=== PATIENT | female | born 1990 | race Caucasian/White ===

== ENCOUNTER 2016-06-09 21:01 | Emergency (ER) | payer OTHER ==
[~2016-06-09] VITALS: Ht 157.5 cm; Wt 82.5 kg
[~2016-06-09 21:01] MED LIST: MEDR150I INJ; TRAZ1TAB8 PO
[2016-06-09 21:03] VITALS: TEMP 37.5; Ht 157.5 cm; Wt 82.5 kg
[2016-06-09] MEDS ORDERED: KETOROLAC TROMETHAMINE 60 MG/2 ML VIAL IM STA (21:38)
[2016-06-09] MEDS ORDERED: PROMETHAZINE HCL INJ 25 MG/ML 1 ML VIAL IM STA (21:38)
--- NOTE | 2016-06-09 21:58 | EMERGENCY ROOM VISIT NOTE ---
History First contact with patient: 21:07 Chief Complaint: HEADACHE Stated Complaint: MIGRAINE,BACK PAIN History of Present Illness The patient is a 26 year old female who presents to the Emergency Room with complaints of back spasms and a migraine headache. The patient reports that she is having low back spasms which began 2 hours ago. The patient also reports she has a migraine which started 2 hours ago. She has associated sensitivity to light and sound as well as nausea. She has not vomited. She rates her discomfort an 8/10. The patient has a history of both back pain and migraine headaches. She reports both of these are exactly like her chronic symptoms. He sees her primary care provider for her headaches. She is prescribed Maxalt, but did not take any tonight. She denies any recent illness , fevers/chills, neck pain/stiffness, blurred vision, slurred speech, numbness or weakness. Review of Systems A complete 10-point Review of Systems was discussed with the patient, with pertinent positives and negatives listed in the History of Present Illness. All remaining Review of Systems questions can be considered negative unless otherwise specified. Past Medical/Surgical History Medical Problems: (1) Migraine (2) Tonsillectomy (3) Vaginal delivery Family History Cancer Diabetes mellitus Hypertension Social History Smoking Status: Current Every Day Smoker Alcohol Use: none Drug Use: none Marital Status: single, in relationship Housing Status: lives with family Occupation Status: employed Current/Historical Medications Scheduled Medroxyprogesterone Acetate (C (Depo-Provera Contraceptiv), 1 EA INJ [id number] Pantoprazole (Protonix), 40 MG PO DAILY Quetiapine Fumarate (Seroquel), 25 MG PO HS Scheduled PRN Albuterol (Ventolin), 2 PUFFS INH QID PRN for SOB/Wheezing Rizatriptan Benzoate (Maxalt), 10 MG PO DIRECTED PRN for Headache Allergies Coded Allergies: Azithromycin (Unverified Allergy, Unknown, HIVES, 05/09/16) Macrolides (Verified Allergy, Unknown, UNKNOWN, 05/09/16) Sulfa Antibiotics (Verified Allergy, Unknown, UNKNOWN, 05/09/16) Sulfamethoxazole w/Trimethoprim (Unverified Allergy, Unknown, UKN, 05/09/16 ) Uncoded Allergies: KETALIDES (Allergy, Unknown, UNKNOWN, 08/27/13) Physical Exam Vital Signs Date Time Temp Pulse Resp B/P Pulse Ox O2 Delivery O2 Flow Rate FiO2 06/09/16 22:19 107 18 121/88 98 06/09/16 21:03 37.5 106 20 119/89 100 Room Air Physical Exam VITALS: Vitals are noted on the nurse's note and reviewed by myself. Vital signs stable. GENERAL: This is a 26-year-old female, in no acute distress, nondiaphoretic, well-developed well-nourished. SKIN: The skin was without rashes, erythema, edema, or bruising. There is no tenting of the skin. Capillary reflex less than 2 seconds. HEAD: Normocephalic atraumatic. EARS: External auditory canals clear, tympanic membranes pearly horton without erythema or effusion bilaterally. EYES: Pupils equal round and reactive to light and accommodation. Conjunctivae without injection, sclerae without icterus. Extraocular movements intact. NOSE: Patent, turbinates without inflammation or discharge. No sinus tenderness. MOUTH: Mucous membranes moist. Tonsils are not enlarged. Pharynx without erythema or exudate. NECK: Supple without nuchal rigidity. No lymphadenopathy. HEART: Regular rate and rhythm without murmurs gallops or rubs. LUNGS: Clear to auscultation bilaterally without wheezes, rales or rhonchi. ABDOMEN: Soft, nontender to palpation. MUSCULOSKELETAL: No tenderness of the lumbar spine. NEURO: Patient was alert and oriented to person place and time. Normal sensation to light and sharp touch. Deep tendon reflexes 2+ throughout. No focal neurological deficits. Medical Decision & Procedures Medications Administered Medications (Trade) Dose Ordered Sig/Ya Route Start Time Stop Time Status Last Admin Dose Admin Promethazine HCl (Phenergan Inj) 25 mg NOW STAT IM 06/09/16 21:38 06/09/16 21:40 DC 06/09/16 21:46 25 MG Ketorolac Tromethamine (Toradol Inj) 60 mg NOW STAT IM 06/09/16 21:38 06/09/16 21:40 DC 06/09/16 21:46 60 MG Medical Decision The differential diagnosis includes acute intracranial bleed, meningitis, encephalitis, mass or mass effect, sinusitis, infection, tumor, headache, temporal arteritis and carbon monoxide exposure, and migraine. The patient was evaluated as above. She has been here multiple times previously for migraine headaches. She reports that her symptoms today are exactly like previous migraine headaches she has had. The patient's temperature in triage was 37.5C. I did recheck the temperature in the room and found it to be 37.1C. There is nothing to suggest meningitis on examination. The patient was given 25 mg Phenergan IM and 60 mg Toradol IM with relief of her symptoms. She verbalized understanding and was discharged home in good condition. Impression Primary Impression: Migraine Departure Information Dispostion Home / Self-Care Condition GOOD Referrals Akhil Oneil M.D. (PCP) Patient Instructions A Signature Page, My [facility] Additional Instructions You have been treated in the Emergency Department for a Headache. You have received pain medicine in the emergency department which impairs your ability to operate a vehicle. It is illegal for you to drive after receiving these medicines. You should schedule a follow-up appointment in 2-3 days with your Primary Care Provider or established Neurologist for further evaluation and treatment of your Headache. Return to the Emergency Department if your current symptoms worsen despite treatment course outlined above, or if you develop any of the following symptoms : intractable pain despite aforementioned treatment course, visual disturbances , loss of vision, unilateral weakness or facial drooping, slurring of speech, loss of coordination, or loss of consciousness.
[2016-06-09 22:19] VITALS: BP 121/88; PULSE 107; O2SAT 98
[2016-06-09] MEDS ORDERED: ALBUAER2 INH (23:42)
[2016-09-01] MEDS ORDERED: VNTHFA/IN INH (01:02)
[2016-09-01] MEDS ORDERED: MEDR150I INJ (01:03)
[2016-09-01] MEDS ORDERED: PANT40TA PO (17:19)
== END 2016-06-09 22:20 | disposition home or self-care (01) ==
LOC: C.EDB 21:03 → C.EDD 22:20
DX: G43.909 Migraine, unspecified, not intractable, without status migrainosus (principal); F17.210 Nicotine dependence, cigarettes, uncomplicated; M54.9 Dorsalgia, unspecified; Z79.3 Long term (current) use of hormonal contraceptives; Z88.2 Allergy status to sulfonamides; Z88.1 Allergy status to other antibiotic agents

== ENCOUNTER 2016-06-25 | Emergency (ER) | payer OTHER ==
[~2016-06-25] VITALS: Ht 157.5 cm; Wt 85.5 kg
[~2016-06-25] MED LIST changes: +ALBUAER2 INH; -TRAZ1TAB8 PO
[2016-06-25 00:03] VITALS: TEMP 37.2; Ht 157.5 cm; Wt 85.5 kg
[2016-06-25] MEDS ORDERED: DIAZEPAM 5MG TAB PO STA (00:12)
[2016-06-25] MEDS ORDERED: KETOROLAC TROMETHAMINE 60 MG/2 ML VIAL IM STA (00:12)
[2016-06-25] MEDS ORDERED: PROMETHAZINE HCL INJ 25 MG/ML 1 ML VIAL IM STA (00:12)
[2016-06-25] MEDS ORDERED: BACL1TAB PO (00:17)
--- NOTE | 2016-06-25 00:21 | EMERGENCY ROOM VISIT NOTE ---
History First contact with patient: 00:04 Chief Complaint: HEADACHE Stated Complaint: STIFF NECK, HEADACHE History of Present Illness The patient is a 26 year old female who presents to the Emergency Room with complaints of headache described as aching, ranging in severity 7 out of 10 throughout the frontal region similar to prior though slow in onset. Patient states she slept wrong and had some neck achiness. She's had this before. She is requesting a muscle relaxant. Patient denies fever, neck stiffness, cervical pain, fall, trauma, numbness, tingling, chest pain, dyspnea, weakness, abdominal pain, vomiting, diarrhea. Patient states this feels like a normal migraine for her. Normal imaging in the past. Review of Systems See HPI for pertinent positives & negatives. A total of 10 systems reviewed and were otherwise negative. Past Medical/Surgical History Medical Problems: (1) Migraine (2) Tonsillectomy (3) Vaginal delivery Family History Cancer Diabetes mellitus Hypertension Social History Smoking Status: Current Every Day Smoker Alcohol Use: none Drug Use: none Marital Status: single, in relationship Housing Status: lives with family Occupation Status: employed Current/Historical Medications Scheduled Baclofen (Lioresal), 10 MG PO TID Medroxyprogesterone Acetate (C (Depo-Provera Contraceptiv), 1 EA INJ [id number] Pantoprazole (Protonix), 40 MG PO DAILY Quetiapine Fumarate (Seroquel), 25 MG PO HS Scheduled PRN Albuterol (Ventolin), 2 PUFFS INH QID PRN for SOB/Wheezing Rizatriptan Benzoate (Maxalt), 10 MG PO DIRECTED PRN for Headache Allergies Coded Allergies: Azithromycin (Unverified Allergy, Unknown, HIVES, 06/25/16) Macrolides (Verified Allergy, Unknown, UNKNOWN, 06/25/16) Sulfa Antibiotics (Verified Allergy, Unknown, UNKNOWN, 06/25/16) Sulfamethoxazole w/Trimethoprim (Unverified Allergy, Unknown, UKN, 06/25/16 ) Uncoded Allergies: KETALIDES (Allergy, Unknown, UNKNOWN, 08/27/13) Physical Exam Vital Signs Date Time Temp Pulse Resp B/P Pulse Ox O2 Delivery O2 Flow Rate FiO2 06/25/16 00:03 37.2 88 18 120/80 100 Room Air Physical Exam VITALS: Vitals are noted on the nurse's note and reviewed by myself. Vital signs stable. GENERAL: Pleasant female, in no acute distress, nondiaphoretic, well-developed well-nourished. SKIN: The skin was without rashes, erythema, edema, or bruising. There is no tenting of the skin. Capillary reflex less than 2 seconds. HEAD: Normocephalic atraumatic. EARS: External auditory canals clear, tympanic membranes pearly horton without erythema or effusion bilaterally. EYES: Pupils equal round and reactive to light and accommodation. Conjunctivae without injection, sclerae without icterus. Extraocular movements intact. NOSE: Patent, turbinates without inflammation or discharge. No sinus tenderness. MOUTH: Mucous membranes moist. Pharynx without erythema or exudate. Uvula midline. Airway patent. Tongue does not deviate. NECK: Supple without nuchal rigidity. No lymphadenopathy. No thyromegaly. Cervical spine is nontender. No JVD. No meningeal signs HEART: Regular rate and rhythm without murmurs gallops or rubs. LUNGS: Clear to auscultation bilaterally without wheezes, rales or rhonchi. No dullness to percussion. No retractions or accessory muscle use. ABDOMEN: Positive bowel sounds x 4. Normal tympanic percussion. Soft, nontender, without masses or organomegaly. Barnard sign negative. No guarding or rebound tenderness. MUSCULOSKELETAL: No muscle atrophy, erythema, or edema noted. NEURO: Patient was alert and oriented to person place and time. Normal sensation to light and sharp touch. No focal neurological deficits. Cranial nerves II-12 grossly intact. No pronator drift. Cerebellar exam intact Medical Decision & Procedures ED Course Prior records/ancillary studies reviewed. Additional history obtained from friend. Triage Nursing notes reviewed. The patient's history was concerning for headache. Differential diagnosis: Etiologies such as migraine headache, meningitis, sinusitis, CO exposure, ICH, SAH, infection, tumor, headache, sinus thrombosis, arterial dissection, as well as others were entertained. Physical examination findings: As above. Non-focal. ER treatment provided: Toradol, Phenergan, Valium On reassessment the patient felt better. Diagnostics interpreted by me: Deferred This appears to be consistent with migraine and cervical strain. Patient felt much better after being medicated as above. She is neurovascularly and neurologically intact. No signs of meningitis. No trauma. Patient requested to leave and I felt this is reasonable. She is advised to try to muscle relaxants and heating pad and to follow-up with family care in a few days or here in the ER sooner for headache, fevers, neck stiffness, worsening signs or symptoms or as needed. By the evaluation outlined above emergent etiologies such as meningitis, sinusitis, CO exposure, ICH, SAH, infection, temporal arteritis, tumor, sinus thrombosis, arterial dissection, as well as others were deemed relatively unlikely. The pt informed about the findings as listed above. All questions were answered and pleased with the treatment. Return instructions were outlined and the patient was discharged in stable condition. Outpatient prescription management: Baclofen Referral: The patient was referred back to their primary care physician for follow-up in 2 to 3 days for a recheck of the current condition. Medical Decision As above Impression Primary Impression: Cervical muscle strain Additional Impression: Migraine Departure Information Dispostion Home / Self-Care Condition GOOD Prescriptions Baclofen (LIORESAL) 10 Mg Tab 10 MG PO TID, #14 TAB Prov: Madyson Mobley .SNEHA 06/25/16 Forms HOME CARE DOCUMENTATION FORM, IMPORTANT VISIT INFORMATION Patient Instructions My [facility], ED Neck Pain No Trauma Additional Instructions DO NOT drive, drink alcohol, operate machinery, or perform dangerous activities today. You were given medications in the ER that can affect your ability to safely function or operate a vehicle. Rest today in a quiet, peaceful, dark environment and get a full 8-10 hrs of sleep tonight. Avoid loud noises, smoke/smoking, alcohol, bright lights, stress, or physical exertion today to minimize the chance the headache may return. Continue current medications. Baclofen 10 m tablet every 8 hours as needed for muscle tightness. Ibuprofen(Motrin, Advil) may be used for fever or pain. Use 600mg every six hours as needed. Take with food. Avoid using more than 2400mg in a 24 hour period. Do not use 2400mg per day for more than three consecutive days without physician direction. Prolonged inappropriate use can lead to stomach upset or ulcers. (AND/OR) Acetaminophen(Tylenol) may be used for fever or pain. Use 1000mg every six hours as needed. Avoid using more than 3000mg in a 24 hour period. Return to the ER for passing out, worsening headache, vision problems, neck stiffness/pain, fevers, vomiting, worsening of your condition, or as needed. Follow up with your primary physician and/or a neurologist in 2-3 days for a recheck of your current condition. Problem Qualifiers Primary Impression: Cervical muscle strain Encounter type: initial encounter Qualified Codes: S16.1XXA - Strain of muscle, fascia and tendon at neck level, initial encounter Additional Impression: Migraine Migraine type: without aura Status migrainosus presence: without status migrainosus Intractability: not intractable Qualified Codes: G43.009 - Migraine without aura, not intractable, without status migrainosus
[2016-06-25 00:50] VITALS: BP 119/76; PULSE 75; O2SAT 100
[2016-09-01] MEDS ORDERED: VNTHFA/IN INH (01:02)
[2016-09-01] MEDS ORDERED: MEDR150I INJ (01:03)
[2016-09-01] MEDS ORDERED: PANT40TA PO (17:19)
== END 2016-06-25 00:51 | disposition home or self-care (01) ==
LOC: C.EDB 00:01 → C.EDC 00:51
DX: S16.1XXA Strain of muscle, fascia and tendon at neck level, initial encounter (principal); G43.009 Migraine without aura, not intractable, without status migrainosus; X58.XXXA Exposure to other specified factors, initial encounter; F17.200 Nicotine dependence, unspecified, uncomplicated

== ENCOUNTER 2016-06-29 22:43 | Emergency (ER) | payer OTHER ==
[~2016-06-29] VITALS: Ht 157.5 cm; Wt 84.5 kg
[~2016-06-29 22:43] MED LIST changes: +BACL1TAB PO
[2016-06-29 22:50] VITALS: TEMP 37.3; Ht 157.5 cm; Wt 84.5 kg
[2016-06-29] MEDS ORDERED: DiphenhydrAMINE HCL 50 MG/ML VIAL IM STA (23:04)
[2016-06-29] MEDS ORDERED: PROMETHAZINE HCL INJ 25 MG/ML 1 ML VIAL IM STA (23:04)
[2016-06-29] MEDS ORDERED: KETOROLAC TROMETHAMINE 60 MG/2 ML VIAL IM STA (23:04)
[2016-06-29 23:27] VITALS: BP 104/54; PULSE 83; O2SAT 100
--- NOTE | 2016-06-30 06:42 | EMERGENCY ROOM VISIT NOTE ---
ED Visit Note First contact with patient: 22:56 CHIEF COMPLAINT: Migraine headache HISTORY OF PRESENT ILLNESS: This 26-year-old female patient presented to the emergency department with a gradual onset of a severe generalized headache that started earlier today. The patient states the migraine is similar to their typical migraines. There has been associated photophobia, phonophobia, nausea and vomiting. The patient denies fever or chills recently, and there is no weakness or numbness of the extremities. There is no difficulty with speech or vision. No trauma to the head and no neck pain. The pain is severe, constant, and it is slowly increasing in severity. The patient rates the pain as dull and 7/10. The patient has taken [id number] medication without relief. This is not the worst headache of the life and is similar to previous migraines. Previous imaging studies of the brain have been normal. REVIEW OF SYSTEMS: A review of systems was performed with positives and pertinent negatives listed in the history of present illness. All other systems were reviewed and are negative. ALLERGIES: See EMR MEDICATIONS: See EMR PMH: Chronic migraines SOCIAL HISTORY: Employed and lives locally PHYSICAL EXAM: Vital Signs: Reviewed Nurse's notes, vital signs stable. GENERAL: White female, who appears in pain, but non toxic in appearance and in no acute distress. MENTAL STATUS: Alert, oriented, and coherent. HEENT: Normocephalic. PERRLA. EOMI. Nares patent without nuchal rigidity. Tympanic membranes pearly horton without erythema or effusion bilaterally. Mucous membranes moist. NECK: Supple, no nuchal rigidity, nontender, no lymphadenopathy. HEART: Regular rhythm and normal rate without murmurs, ectopy, gallops, or rubs. LUNGS: Clear to auscultation bilaterally without wheezes, rales or rhonchi. No dullness to percussion. No accessory muscle use. No retractions. SKIN: Normal. NEUROLOGICAL: Pupils are round, equal and react to light. The optic fundi are normal and the discs are flat. The patient moves all extremities well and the gait is normal. EMERGENCY DEPARTMENT COURSE: I examined the patient. The patient is on a NO narcotic injection per month treatment plan for their migraines. The patient was given 60 mg IM Toradol, 25 mg IM Phenergan, and 25 mg IM Benadryl. The differential diagnosis includes acute intracranial bleed, meningitis, encephalitis, mass or mass effect, sinusitis, infection, tumor, headache, temporal arteritis and carbon monoxide exposure, and migraine. The patient was discharged home in stable condition with a female tire room supervisor driving. Problem List Medical Problems: (1) Migraine Status: Chronic (2) Tonsillectomy Status: Resolved (3) Vaginal delivery Status: Resolved Current/Historical Medications Scheduled Baclofen (Lioresal), 10 MG PO TID Medroxyprogesterone Acetate (C (Depo-Provera Contraceptiv), 1 EA INJ [id number] Pantoprazole (Protonix), 40 MG PO DAILY Quetiapine Fumarate (Seroquel), 25 MG PO HS Scheduled PRN Albuterol (Ventolin), 2 PUFFS INH QID PRN for SOB/Wheezing Rizatriptan Benzoate (Maxalt), 10 MG PO DIRECTED PRN for Headache Allergies Coded Allergies: Azithromycin (Unverified Allergy, Unknown, HIVES, 06/25/16) Macrolides (Verified Allergy, Unknown, UNKNOWN, 06/25/16) Sulfa Antibiotics (Verified Allergy, Unknown, UNKNOWN, 06/25/16) Sulfamethoxazole w/Trimethoprim (Unverified Allergy, Unknown, UKN, 06/25/16 ) Uncoded Allergies: KETALIDES (Allergy, Unknown, UNKNOWN, 08/27/13) Vital Signs Date Time Temp Pulse Resp B/P Pulse Ox O2 Delivery O2 Flow Rate FiO2 06/29/16 23:27 83 20 104/54 100 06/29/16 22:50 37.3 90 18 131/78 100 Room Air Medications Administered Medications (Trade) Dose Ordered Sig/Ya Route Start Time Stop Time Status Last Admin Dose Admin Diphenhydramine HCl (Benadryl Inj) 25 mg NOW STAT IM 06/29/16 23:04 06/29/16 23:05 DC 06/29/16 23:13 25 MG Promethazine HCl (Phenergan Inj) 25 mg NOW STAT IM 06/29/16 23:04 06/29/16 23:05 DC 06/29/16 23:13 25 MG Ketorolac Tromethamine (Toradol Inj) 60 mg NOW STAT IM 06/29/16 23:04 06/29/16 23:05 DC 06/29/16 23:13 60 MG Departure Information Impression Primary Impression: Headache Dispostion Home / Self-Care Condition GOOD Referrals No Doctor, Assigned (PCP) Forms HOME CARE DOCUMENTATION FORM, IMPORTANT VISIT INFORMATION Patient Instructions My [facility] Additional Instructions You were seen and evaluated today on an emergency basis only. This is not a substitute for, or an effort to provide, complete comprehensive medical care. It is not possible to recognize and treat all injuries or illnesses in a single emergency department visit. For this reason it is recommended that you followup with your primary care physician or neurologist this week for ongoing care and evaluation. DO NOT drive, drink alcohol, operate machinery, or perform dangerous activities today. You were given medications in the ER that can affect your ability to safely function or operate a vehicle. Rest today in a quiet, peaceful, dark environment and get a full 8-10 hrs of sleep tonight. Avoid loud noises, smoke/smoking, alcohol, bright lights, stress, or physical exertion today to minimize the chance the headache may return. Continue current medications. Ibuprofen(Motrin, Advil) may be used for fever or pain. Use 600mg every six hours as needed. Take with food. Avoid using more than 2400mg in a 24 hour period. Do not use 2400mg per day for more than three consecutive days without physician direction. Prolonged inappropriate use can lead to stomach upset or ulcers. (AND/OR) Acetaminophen(Tylenol) may be used for fever or pain. Use 1000mg every six hours as needed. Avoid using more than 4000mg in a 24 hour period. Return to the ER for passing out, worsening headache, vision problems, neck stiffness/pain, fevers, vomiting, worsening of your condition, or as needed.
[2016-09-01] MEDS ORDERED: VNTHFA/IN INH (01:02)
[2016-09-01] MEDS ORDERED: MEDR150I INJ (01:03)
[2016-09-01] MEDS ORDERED: PANT40TA PO (17:19)
== END 2016-06-29 23:29 | disposition home or self-care (01) ==
LOC: C.EDB 22:44
DX: G43.909 Migraine, unspecified, not intractable, without status migrainosus (principal)

== ENCOUNTER 2016-07-11 00:35 | Emergency (ER) | payer OTHER ==
[~2016-07-11] VITALS: Ht 157.5 cm; Wt 85.3 kg
[~2016-07-11 00:35] MED LIST changes: -BACL1TAB PO
[2016-07-11 00:42] VITALS: TEMP 37; Ht 157.5 cm; Wt 85.3 kg
[2016-07-11] MEDS ORDERED: PROMETHAZINE HCL INJ 25 MG in SODIUM CHLORIDE 0.9% 50ML 50 ML IV STA (00:50)
[2016-07-11] MEDS ORDERED: DiphenhydrAMINE HCL 50 MG/ML VIAL IV STA (00:50)
[2016-07-11] MEDS ORDERED: SODIUM CHLORIDE 0.9% 1000ML 1,000 ML IV STA ×2 (00:50)
[2016-07-11] MEDS ORDERED: KETOROLAC TROMETHAMINE 30 MG/ML VIAL IV STA (00:50)
[2016-07-11] MEDS ORDERED: OPTIRAY 320 IV PRN (01:00)
[2016-07-11 01:16] LABS: BASO % 0.2 %; BASO ABS # 0.05 K/uL (0-0.2); COMPLETE YES; EOS % 0.2 %; HEMATOCRIT 43.9 % (37-47); IG% 0.4 %; LYMPH % 23.4 %; LYMPH ABS # 4.83 K/uL (1.2-3.4); MEAN CELL VOLUME 85.7 fL (80-100); MEAN CORPUSCULAR HEMOGLOBIN 29.9 pg (25-34); MEAN CORPUSCULAR HGB CONC 34.9 g/dl (32-36); MEAN PLATELET VOLUME 11.2 fL (7.4-10.4); MONO % 7.6 %; NEUT % 68.2 %; PLATELET COUNT 308 K/uL (130-400); RED BLOOD COUNT 5.12 M/uL (4.2-5.4); WHITE BLOOD COUNT 20.61 K/uL (4.8-10.8)
[2016-07-11 01:28] VITALS: O2SAT 100
[2016-07-11 01:28] LABS: BLOOD UREA NITROGEN 12 mg/dl (7-18); BUN/CREATININE RATIO 11.5 (10-20); CARBON DIOXIDE 28 mmol/L (21-32); CHLORIDE 103 mmol/L (98-107); GLUCOSE 83 mg/dl (70-99); SODIUM 142 mmol/L (136-145)
[2016-07-11 01:31] LABS: ALKALINE PHOSPHATASE 83 U/L (45-117); ALT/SGPT 24 U/L (12-78); AST/SGOT 9 U/L (15-37); PREG INTERNAL NEGATIVE QC NEG CLEAR BACKGROUND; PREG INTERNAL POSITIVE QC POS CONTROL LINE
[2016-07-11 01:40] LABS: URINE APPEARANCE CLEAR (CLEAR); URINE BILIRUBIN NEG (NEG); URINE COLOR YELLOW; URINE NITRITE NEG (NEG); URINE SPECIFIC GRAVITY 1.009 (1.000-1.030); UROBILINOGEN NEG (NEG); ZZUR CULT IF INDIC CLEAN CATCH NO
[2016-07-11 01:47] LABS: MANUAL MICROSCOPIC REQUIRED? NO; REVIEW REQ? NO
[2016-07-11] MEDS ORDERED: POTASSIUM CHLORIDE 10 MEQ TABCR PO STA (02:31)
[2016-07-11 02:44] VITALS: BP 121/82; PULSE 67; O2SAT 100
--- NOTE | 2016-07-11 04:35 | EMERGENCY ROOM VISIT NOTE ---
History First contact with patient: 00:45 Chief Complaint: ABDOMINAL PAIN Stated Complaint: LOWER PELVIC PAIN (RT) SHARP History of Present Illness The patient is a 26 year old female who presents to the Emergency Room with complaints of right-sided abdominal pain for the past 8 prescription aching, ranging in severity 6 out of 10. Nothing makes it better or worse. It does not radiate. Patient denies chest pain, dyspnea, fever, chills, vomiting, diarrhea, vaginal itching or discharge, vaginal pain, back pain, urinary symptoms. She is tolerate by mouth fluids and food. Patient does not feel at risk for STDs. Review of Systems See HPI for pertinent positives & negatives. A total of 10 systems reviewed and were otherwise negative. Past Medical/Surgical History Medical Problems: (1) Migraine (2) Tonsillectomy (3) Vaginal delivery Family History Cancer Diabetes mellitus Hypertension Social History Smoking Status: Never Smoker Alcohol Use: none Drug Use: none Marital Status: single, in relationship Housing Status: lives with family Occupation Status: employed Current/Historical Medications Scheduled Medroxyprogesterone Acetate (C (Depo-Provera Contraceptiv), 1 DOSE INJ EVERY 3 MONTHS Pantoprazole (Protonix), 40 MG PO DAILY Quetiapine Fumarate (Seroquel), 25 MG PO HS Scheduled PRN Albuterol Hfa (Ventolin Hfa), 2 PUFFS INH QID PRN for SOB/Wheezing Rizatriptan Benzoate (Maxalt), 10 MG PO DIRECTED PRN for Headache Allergies Coded Allergies: Azithromycin (Unverified Allergy, Unknown, HIVES, 07/11/16) Macrolides (Verified Allergy, Unknown, UNKNOWN, 07/11/16) Sulfa Antibiotics (Verified Allergy, Unknown, UNKNOWN, 07/11/16) Sulfamethoxazole w/Trimethoprim (Unverified Allergy, Unknown, UKN, 07/11/16) Uncoded Allergies: KETALIDES (Allergy, Unknown, UNKNOWN, 08/27/13) Physical Exam Vital Signs Date Time Temp Pulse Resp B/P Pulse Ox O2 Delivery O2 Flow Rate FiO2 07/11/16 02:44 67 22 121/82 100 07/11/16 02:28 74 16 100 07/11/16 01:58 114/77 07/11/16 01:35 76 19 99 07/11/16 01:33 79 07/11/16 01:30 76 19 112/88 99 Room Air 07/11/16 01:28 100 Room Air 07/11/16 01:28 112/88 07/11/16 00:42 37.0 92 18 120/81 99 Room Air Pain Rating (0-10): 3.0 Physical Exam VITALS: Vitals are noted on the nurse's note and reviewed by myself. Vital signs stable. GENERAL: Pleasant female, in no acute distress, nondiaphoretic, well-developed well-nourished. SKIN: The skin was without rashes, erythema, edema, or bruising. There is no tenting of the skin. Capillary reflex less than 2 seconds. HEAD: Normocephalic atraumatic. EARS: External auditory canals clear, tympanic membranes pearly horton without erythema or effusion bilaterally. EYES: Pupils equal round and reactive to light and accommodation. Conjunctivae without injection, sclerae without icterus. Extraocular movements intact. NOSE: Patent, turbinates without inflammation or discharge. MOUTH: Mucous membranes moist. Pharynx without erythema or exudate. Uvula midline. Airway patent. Tongue does not deviate. NECK: Supple without nuchal rigidity. No lymphadenopathy. No thyromegaly. Cervical spine is nontender. No JVD. HEART: Regular rate and rhythm without murmurs gallops or rubs. LUNGS: Clear to auscultation bilaterally without wheezes, rales or rhonchi. No dullness to percussion. No retractions or accessory muscle use. ABDOMEN: Positive bowel sounds x 4. Normal tympanic percussion. Soft, protuberant, obese, tender to palpation right side of abdomen, no CVA tenderness , without masses or organomegaly. Barnard sign negative. No guarding or rebound tenderness. MUSCULOSKELETAL: No muscle atrophy, erythema, or edema noted. NEURO: Patient was alert and oriented to person place and time. Normal sensation to light and sharp touch. No focal neurological deficits. Medical Decision & Procedures Laboratory Results 07/11/16 01:00 Red Blood Count 5.12, Mean Corpuscular Volume 85.7, Mean Corpuscular Hemoglobin 29.9, Mean Corpuscular Hemoglobin Concent 34.9, Mean Platelet Volume 11.2, Neutrophils (%) (Auto) 68.2, Lymphocytes (%) (Auto) 23.4, Monocytes (%) (Auto) 7.6, Eosinophils (%) (Auto) 0.2, Basophils (%) (Auto) 0.2, Neutrophils # (Auto) 14.03, Lymphocytes # (Auto) 4.83, Monocytes # (Auto) 1.57, Eosinophils # (Auto) 0.05, Basophils # (Auto) 0.05 07/11/16 01:00 Test 07/11/16 01:00 07/11/16 01:28 White Blood Count 20.61 K/uL (4.8-10.8) Red Blood Count 5.12 M/uL (4.2-5.4) Hemoglobin 15.3 g/dL (12.0-16.0) Hematocrit 43.9 % (37-47) Mean Corpuscular Volume 85.7 fL (80-100) Mean Corpuscular Hemoglobin 29.9 pg (25-34) Mean Corpuscular Hemoglobin Concent 34.9 g/dl (32-36) Platelet Count 308 K/uL (130-400) Mean Platelet Volume 11.2 fL (7.4-10.4) Neutrophils (%) (Auto) 68.2 % Lymphocytes (%) (Auto) 23.4 % Monocytes (%) (Auto) 7.6 % Eosinophils (%) (Auto) 0.2 % Basophils (%) (Auto) 0.2 % Neutrophils # (Auto) 14.03 K/uL (1.4-6.5) Lymphocytes # (Auto) 4.83 K/uL (1.2-3.4) Monocytes # (Auto) 1.57 K/uL (0.11-0.59) Eosinophils # (Auto) 0.05 K/uL (0-0.5) Basophils # (Auto) 0.05 K/uL (0-0.2) RDW Standard Deviation 41.4 fL (36.4-46.3) RDW Coefficient of Variation 13.1 % (11.5-14.5) Immature Granulocyte % (Auto) 0.4 % Immature Granulocyte # (Auto) 0.08 K/uL (0.00-0.02) Anion Gap 11.0 mmol/L (3-11) Est Creatinine Clear Calc Drug Dose 87.1 ml/min Estimated GFR () 90.7 Estimated GFR (Non- 78.2 BUN/Creatinine Ratio 11.5 (10-20) Calcium Level 9.0 mg/dl (8.5-10.1) Total Bilirubin 0.3 mg/dl (0.2-1) Direct Bilirubin < 0.1 mg/dl (0-0.2) Aspartate Amino Transf (AST/SGOT) 9 U/L (15-37) Alanine Aminotransferase (ALT/SGPT) 24 U/L (12-78) Alkaline Phosphatase 83 U/L (45-117) Total Protein 7.9 gm/dl (6.4-8.2) Albumin 4.0 gm/dl (3.4-5.0) Lipase 164 U/L (73-393) Human Chorionic Gonadotropin, Qual NEG (NEG) Urine Color YELLOW Urine Appearance CLEAR (CLEAR) Urine pH 6.0 (4.5-7.5) Urine Specific [place] 1.009 (1.000-1.030) Urine Protein NEG (NEG) Urine Glucose (UA) NEG (NEG) Urine Ketones NEG (NEG) Urine Occult Blood NEG (NEG) Urine Nitrite NEG (NEG) Urine Bilirubin NEG (NEG) Urine Urobilinogen NEG (NEG) Urine Leukocyte Esterase NEG (NEG) Medications Administered Medications (Trade) Dose Ordered Sig/Ya Route Start Time Stop Time Status Last Admin Dose Admin Ketorolac Tromethamine 15 mg 15 mg NOW STAT IV 07/11/16 00:50 07/11/16 00:53 DE 07/11/16 01:19 15 MG Promethazine HCl/ Sodium Chloride (Phenergan Inj/ Nss 50ml) 51 ml @ 204 mls/hr NOW STAT IV 07/11/16 00:50 07/11/16 01:04 DE 07/11/16 01:19 204 MLS/HR Diphenhydramine HCl 12.5 mg 12.5 mg NOW STAT IV 07/11/16 00:50 07/11/16 00:53 DE 07/11/16 01:19 12.5 MG Sodium Chloride 1,000 ml @ 999 mls/hr Q1H1M STAT IV 07/11/16 00:50 07/11/16 01:50 DE 07/11/16 01:18 999 MLS/HR Sodium Chloride (Nss 1000ml) 1,000 ml @ 125 mls/hr Q8H STAT IV 07/11/16 00:50 07/11/16 03:41 DC 07/11/16 01:18 125 MLS/HR Potassium Chloride (Klor-Con M10) 40 meq NOW STAT PO 07/11/16 02:31 07/11/16 02:33 DC 07/11/16 02:41 40 MEQ ED Course Prior records/ancillary studies reviewed. Triage Nursing notes reviewed. Additional history obtained from friend. The patient's history was concerning for abdominal pain. Differential diagnosis: Etiologies such as appendicitis, diverticulitis, PUD, biliary pathology, UTI, pancreatitis, obstruction, mesenteric ischemia, aortic pathology, infections, inflammatory bowel disease, renal colic, as well as others were entertained. Physical examination findings: As above. ER treatment provided: Toradol, Phenergan, Benadryl, IV fluids On reassessment the patient felt better. Diagnostics interpreted by me: The labs revealed leukocytosis, higher than normal per patient. Hypokalemia and this is replaced orally Imaging studies: CT ABDOMEN & PELVIS: Unremarkable appendix. No colitis. No radiodense gallstones or pancreatitis. No hydronephrosis or perinephric collections. Radiologist: Kenny Brunson M.D. Exam and history seem consistent with abdominal pain with unclear etiology. Patient was strongly encouraged to follow-up with family care for further workup for her chronic leukocytosis and for reevaluation for her abdominal pain today. Negative urine. Negative hCG. No acute findings and CT imaging. Patient was advised to return to the ER immediately for dog pain, fevers, vomiting, worsening signs or symptoms or as needed. By the evaluation outlined above emergent etiologies such as appendicitis, diverticulitis, PUD, biliary pathology, UTI, pancreatitis, obstruction, mesenteric ischemia, aortic pathology, infections, inflammatory bowel disease, renal colic, as well as others were deemed relatively unlikely. The pt informed about the findings as listed above. All questions were answered and pleased with the treatment. Return instructions were outlined and the patient was discharged in stable condition. Outpatient prescription management: Mary Kayfrchapincito Referral: The patient was referred back to their primary care physician for follow-up in 2 to 3 days for a recheck of the current condition. Case reviewed with my attending Medical Decision As above Impression Primary Impression: Abdominal pain, right upper quadrant Additional Impressions: Abdominal pain, right lower quadrant Leukocytosis Hypokalemia Departure Information Dispostion Home / Self-Care Condition FAIR Forms HOME CARE DOCUMENTATION FORM, IMPORTANT VISIT INFORMATION Patient Instructions Abdominal Pain - [facility], My [facility] Additional Instructions DO NOT drive, drink alcohol, operate machinery, or perform dangerous activities today. You were given medications in the ER that can affect your ability to safely function or operate a vehicle. Have further workup on your elevated white count with the family care doctor. Ibuprofen(Motrin, Advil) may be used for fever or pain. Use 600mg every six hours as needed. Take with food. Avoid using more than 2400mg in a 24 hour period. Do not use 2400mg per day for more than three consecutive days without physician direction. Prolonged inappropriate use can lead to stomach upset or ulcers. (AND/OR) Acetaminophen(Tylenol) may be used for fever or pain. Use 1000mg every six hours as needed. Avoid using more than 3000mg in a 24 hour period. Zofran 4mg: Take one every six hours as needed for nausea. Avoid alcohol, operating machinery or dangerous equipment, working on ladders or roofs, DRIVING , or situations where being under the influence may be dangerous. Rest and drink plenty of fluids as tolerated. Slow sips of water or sports drinks are recommended instead of large amounts all at once. Continue current medications. Once your stomach is settled start with a clear liquid diet (jello, soup broth, etc.) and then advance as tolerated. You should avoid full, heavy meals for about 24 hrs from the time your symptoms resolved. Return to the ER immediately for worsening or persistent abdominal pain, vomiting, fevers, chest pains, difficulty breathing, black or bloody stools, worsening of your condition, or as needed. Follow up with your primary physician in 24 hours for a recheck of your current condition. Problem Qualifiers
--- NOTE | 2016-07-11 07:30 | DIAGNOSTIC IMAGING REPORT ---
CT OF THE ABDOMEN AND PELVIS WITH CONTRAST CLINICAL HISTORY: Right lower quadrant pain. COMPARISON STUDY: CT of the abdomen and pelvis October 17, 2015. TECHNIQUE: Following IV administration of 91 mL of Optiray-320, axial images of the abdomen and pelvis were obtained from the lung bases to the proximal femurs. Images were reviewed in the axial, sagittal, and coronal planes. IV contrast was administered without complication. CT DOSE: 618.82 mGy.cm FINDINGS: The liver, spleen, adrenal glands, kidneys and pancreas are normal. There is no biliary or pancreatic ductal dilatation. The caliber and wall thickness of small and large bowel are normal. The appendix is normal. There is no free fluid. There is no lymphadenopathy. No abscess is present. There are scattered colonic diverticula without evidence for acute diverticulitis. Skeletal structures are unremarkable. There is no hydronephrosis. IMPRESSION: No acute process within the abdomen or pelvis. Normal appendix. Electronically signed by: Wagner Vera M.D. 07/11/2016 7:29 AM Dictated Date/Time: 07/11/2016 7:26 AM
[2016-09-01] MEDS ORDERED: VNTHFA/IN INH (01:02)
[2016-09-01] MEDS ORDERED: MEDR150I INJ (01:03)
[2016-09-01] MEDS ORDERED: PANT40TA PO (17:19)
== END 2016-07-11 02:44 | disposition home or self-care (01) ==
LOC: C.EDB 00:36
DX: R10.11 Right upper quadrant pain (principal); R10.31 Right lower quadrant pain; D72.829 Elevated white blood cell count, unspecified; E87.6 Hypokalemia

== ENCOUNTER 2016-08-25 01:34 | Emergency (ER) | payer OTHER ==
[~2016-08-25] VITALS: Ht 157.5 cm; Wt 85.1 kg
[2016-08-25 01:37] VITALS: TEMP 36.9; Ht 157.5 cm; Wt 85.1 kg
[2016-08-25] MEDS ORDERED: KETOROLAC TROMETHAMINE 60 MG/2 ML VIAL IM STA (01:52)
[2016-08-25] MEDS ORDERED: DiphenhydrAMINE HCL 50 MG/ML VIAL IM STA (01:52)
[2016-08-25] MEDS ORDERED: PROMETHAZINE HCL INJ 25 MG/ML 1 ML VIAL IM STA (01:52)
[2016-08-25 02:29] VITALS: BP 108/74; PULSE 88; O2SAT 99
--- NOTE | 2016-08-25 05:18 | EMERGENCY ROOM VISIT NOTE ---
ED Visit Note First contact with patient: 01:42 CHIEF COMPLAINT: Migraine headache HISTORY OF PRESENT ILLNESS: This 26-year-old female patient presented to the emergency department with a gradual onset of a severe generalized headache that started 2 days ago. The patient states the migraine is similar to their typical migraines. There has been associated photophobia, phonophobia, nausea and vomiting. The patient denies fever or chills recently, and there is no weakness or numbness of the extremities. There is no difficulty with speech or vision. No trauma to the head and no neck pain. The pain is severe, constant, and it is slowly increasing in severity. The patient rates the pain as dull and 8/10. The patient has taken nothing for her symptoms. This is not the worst headache of the life and is similar to previous migraines. Previous imaging studies of the brain have been normal. REVIEW OF SYSTEMS: A review of systems was performed with positives and pertinent negatives listed in the history of present illness. All other systems were reviewed and are negative. ALLERGIES: See EMR MEDICATIONS: See EMR PMH: Chronic migraines SOCIAL HISTORY: Employed and lives locally PHYSICAL EXAM: Vital Signs: Reviewed Nurse's notes, vital signs stable. GENERAL: White female, who appears in pain, but non toxic in appearance and in no acute distress. MENTAL STATUS: Alert, oriented, and coherent. HEENT: Normocephalic. PERRLA. EOMI. Nares patent without nuchal rigidity. Tympanic membranes pearly horton without erythema or effusion bilaterally. Mucous membranes moist. NECK: Supple, no nuchal rigidity, nontender, no lymphadenopathy. HEART: Regular rhythm and normal rate without murmurs, ectopy, gallops, or rubs. LUNGS: Clear to auscultation bilaterally without wheezes, rales or rhonchi. No dullness to percussion. No accessory muscle use. No retractions. SKIN: Normal. NEUROLOGICAL: Pupils are round, equal and react to light. The optic fundi are normal and the discs are flat. The patient moves all extremities well and the gait is normal. EMERGENCY DEPARTMENT COURSE: I examined the patient. The patient is on a NO narcotic injection per month treatment plan for their migraines. The patient has been seen several times in the past with this complaint. She was given 60 mg IM Toradol, 25 mg IM Phenergan, and 25 mg IM Benadryl for her symptoms. The differential diagnosis includes acute intracranial bleed, meningitis, encephalitis, mass or mass effect, sinusitis, infection, tumor, headache, temporal arteritis and carbon monoxide exposure, and migraine. The patient was discharged home in stable condition with a female rn acls driving. Problem List Medical Problems: (1) Migraine Status: Chronic (2) Tonsillectomy Status: Resolved (3) Vaginal delivery Status: Resolved Current/Historical Medications Scheduled Medroxyprogesterone Acetate (C (Depo-Provera Contraceptiv), 1 DOSE INJ EVERY 3 MONTHS Pantoprazole (Protonix), 40 MG PO DAILY Quetiapine Fumarate (Seroquel), 25 MG PO HS Scheduled PRN Albuterol Hfa (Ventolin Hfa), 2 PUFFS INH QID PRN for SOB/Wheezing Rizatriptan Benzoate (Maxalt), 10 MG PO DIRECTED PRN for Headache Allergies Coded Allergies: Azithromycin (Unverified Allergy, Unknown, HIVES, 07/11/16) Macrolides (Verified Allergy, Unknown, UNKNOWN, 07/11/16) Sulfa Antibiotics (Verified Allergy, Unknown, UNKNOWN, 07/11/16) Sulfamethoxazole w/Trimethoprim (Unverified Allergy, Unknown, UKN, 07/11/16) Uncoded Allergies: KETALIDES (Allergy, Unknown, UNKNOWN, 08/27/13) Vital Signs Date Time Temp Pulse Resp B/P Pulse Ox O2 Delivery O2 Flow Rate FiO2 08/25/16 02:29 88 18 108/74 99 08/25/16 01:37 36.9 108 20 118/80 98 Room Air Medications Administered Medications (Trade) Dose Ordered Sig/Ya Route Start Time Stop Time Status Last Admin Dose Admin Diphenhydramine HCl (Benadryl Inj) 25 mg NOW STAT IM 08/25/16 01:52 08/25/16 01:54 DC 08/25/16 01:59 25 MG Ketorolac Tromethamine (Toradol Inj) 60 mg NOW STAT IM 08/25/16 01:52 08/25/16 01:54 DC 08/25/16 01:58 60 MG Promethazine HCl (Phenergan Inj) 25 mg NOW STAT IM 08/25/16 01:52 08/25/16 01:54 DC 08/25/16 01:59 25 MG Departure Information Impression Primary Impression: Headache Dispostion Home / Self-Care Condition FAIR Referrals Akhil Oneil M.D. (PCP) Forms HOME CARE DOCUMENTATION FORM, IMPORTANT VISIT INFORMATION Patient Instructions My [facility] Additional Instructions You were seen and evaluated today on an emergency basis only. This is not a substitute for, or an effort to provide, complete comprehensive medical care. It is not possible to recognize and treat all injuries or illnesses in a single emergency department visit. For this reason it is recommended that you followup with your primary care physician or neurologist this week for ongoing care and evaluation. DO NOT drive, drink alcohol, operate machinery, or perform dangerous activities today. You were given medications in the ER that can affect your ability to safely function or operate a vehicle. Rest today in a quiet, peaceful, dark environment and get a full 8-10 hrs of sleep tonight. Avoid loud noises, smoke/smoking, alcohol, bright lights, stress, or physical exertion today to minimize the chance the headache may return. Continue current medications. Ibuprofen(Motrin, Advil) may be used for fever or pain. Use 600mg every six hours as needed. Take with food. Avoid using more than 2400mg in a 24 hour period. Do not use 2400mg per day for more than three consecutive days without physician direction. Prolonged inappropriate use can lead to stomach upset or ulcers. (AND/OR) Acetaminophen(Tylenol) may be used for fever or pain. Use 1000mg every six hours as needed. Avoid using more than 4000mg in a 24 hour period. Return to the ER for passing out, worsening headache, vision problems, neck stiffness/pain, fevers, vomiting, worsening of your condition, or as needed.
[2016-09-01] MEDS ORDERED: VNTHFA/IN INH (01:02)
[2016-09-01] MEDS ORDERED: MEDR150I INJ (01:03)
[2016-09-01] MEDS ORDERED: PANT40TA PO (17:19)
== END 2016-08-25 02:29 | disposition home or self-care (01) ==
LOC: C.EDB 01:35 → C.EDA 02:29
DX: R51 Headache (principal); Z79.899 Other long term (current) drug therapy

== ENCOUNTER 2016-09-01 20:28 | Emergency (ER) | payer OTHER ==
[~2016-09-01] VITALS: Ht 157.5 cm; Wt 84.1 kg
[~2016-09-01 20:28] MED LIST changes: -ALBUAER2 INH; +PANT40TA PO; +VNTHFA/IN INH
[2016-09-01 20:35] VITALS: TEMP 36.6; Ht 157.5 cm; Wt 84.1 kg
[2016-09-01] MEDS ORDERED: RIZA10TA18 PO (21:24)
[2016-09-01] MEDS ORDERED: PROMETHAZINE HCL INJ 25 MG/ML 1 ML VIAL IV STA (21:38)
[2016-09-01] MEDS ORDERED: ONDANSETRON INJ 2 MG/ML 2 ML VIAL IV STA (21:38)
[2016-09-01] MEDS ORDERED: SODIUM CHLORIDE 0.9% 1000ML 2,000 ML IV STA (21:38)
[2016-09-01] MEDS ORDERED: KETOROLAC TROMETHAMINE 30 MG/ML VIAL IV STA (21:38)
--- NOTE | 2016-09-01 21:46 | EMERGENCY ROOM VISIT NOTE ---
History Report prepared by Nadine: Deb Gonzalez Under the Supervision of: Dr. Mohsen Hernandez M.D. First contact with patient: 21:33 Chief Complaint: VOMITING Stated Complaint: NAUSEA PAST 5 DAYS,HEADACHE,VOMITTING Nursing Triage Summary: Pt reports nausea x5 days. "a couple" episodes of vomiting over those 5 days. Unable to eat and drink per normal due to nausea. Awoke this AM with migraine. Reports slight belly pain in bilateral lower abdominal quadrants. History of Present Illness The patient is a 26 year old female who presents to the Emergency Room with complaints of persistent vomiting with onset five days ago. She rates her discomfort as an 8/10. The patient has been vomiting and unable to keep food down. She has been having hot flashes and chills. The patient states that she has some abdominal pain. The patient states that she was seen in the ED for similar symptoms one week ago. She has not felt better since. The patient denies fever, diarrhea, cough, cold, congestion, sore throat, chance of . Source of History: patient Onset: five days ago Position: abdomen Symptom Intensity: 8/10 Quality: other (vomiting) Timing: other (persistent) Associated Symptoms: No cough, No diarrhea, No fevers, No sorethroat Note: She denies cold symptoms, congestion. Review of Systems See HPI for pertinent positives & negatives. A total of 10 systems reviewed and were otherwise negative. Past Medical & Surgical Medical Problems: (1) Migraine (2) Tonsillectomy (3) Vaginal delivery Family History Cancer Diabetes mellitus Hypertension Social History Smoking Status: Current Every Day Smoker Alcohol Use: none Drug Use: none Marital Status: single, in relationship Housing Status: lives with family Occupation Status: employed Current/Historical Medications Scheduled Gabapentin (Gabapentin), 800 MG PO TID Medroxyprogesterone Acetate (C (Depo-Provera Contraceptiv), 1 DOSE INJ EVERY 3 MONTHS Pantoprazole (Protonix), 40 MG PO DAILY Potassium Chloride (Potassium Chloride Er), 1 CAP PO DAILY Promethazine HCl (Promethazine HCl), 1 TAB PO PRN UD Quetiapine Fumarate (Seroquel), 25 MG PO HS Scheduled PRN Albuterol Hfa (Ventolin Hfa), 2 PUFFS INH QID PRN for SOB/Wheezing Ondansetron (Ondansetron Odt), 8 MG PO Q8 PRN for Nausea Promethazine Hcl (Phenergan), 25 MG PO Q6H PRN for Nausea Rizatriptan Benzoate (Maxalt), 10 MG PO DIRECTED PRN for Headache Allergies Coded Allergies: Azithromycin (Unverified Allergy, Unknown, HIVES, 07/11/16) Macrolides (Verified Allergy, Unknown, UNKNOWN, 07/11/16) Sulfa Antibiotics (Verified Allergy, Unknown, UNKNOWN, 07/11/16) Sulfamethoxazole w/Trimethoprim (Unverified Allergy, Unknown, UKN, 07/11/16) Uncoded Allergies: KETALIDES (Allergy, Unknown, UNKNOWN, 08/27/13) Physical Exam Vital Signs Date Time Temp Pulse Resp B/P Pulse Ox O2 Delivery O2 Flow Rate FiO2 09/01/16 23:48 86 18 140/89 100 Room Air 09/01/16 22:24 79 18 128/83 100 Room Air 09/01/16 20:35 36.6 68 18 120/79 98 Room Air Physical Exam GENERAL: Patient is in no acute distress. HEENT: No acute trauma, normocephalic atraumatic, mucous membranes moist, no nasal congestion, no scleral icterus. NECK: No stridor, no adenopathy, no meningismus, trachea is midline. LUNGS: Clear to auscultation bilaterally, no wheeze, no rhonchi, breath sounds equal. HEART: Without murmurs gallops or rubs, regular rate and rhythm. ABDOMEN: Soft, mildly diffusely tender, bowel sounds positive, no hernias, no peritonitis. EXTREMITIES: No cyanosis or edema, full range of motion of all the joints without pain or difficulty, no signs for acute trauma. NEUROLOGIC: Oriented x 3, no acute motor or sensory deficits, no focal weakness. SKIN: No rash, no jaundice, no diaphoresis. Medical Decision & Procedures ER Provider Diagnostic Interpretation: X-ray results as stated below per interpretation by me and the radiologist: ABDOMEN 2VIEW W/PA CHEST RTN CLINICAL HISTORY: Abdominal pain, nausea, headache. COMPARISON STUDY: 12/12/2014 FINDINGS: The erect chest reveals no evidence of free air. There is no evidence of focal pulmonary consolidation.] Erect and supine views of the abdomen reveal no abnormally dilated loops of large or small bowel. There are no transition zone to indicate bowel obstruction. IMPRESSION: No evidence of bowel obstruction. No evidence of free air. Electronically signed by: Brady Hallman M.D. 09/01/2016 10:19 PM Dictated Date/Time: 09/01/2016 10:18 PM Laboratory Results 09/01/16 21:50 Red Blood Count 4.81, Mean Corpuscular Volume 83.4, Mean Corpuscular Hemoglobin 28.7, Mean Corpuscular Hemoglobin Concent 34.4, Mean Platelet Volume 10.7, Neutrophils (%) (Auto) 52.0, Lymphocytes (%) (Auto) 40.6, Monocytes (%) (Auto) 5.8, Eosinophils (%) (Auto) 1.1, Basophils (%) (Auto) 0.4, Neutrophils # (Auto) 4.22, Lymphocytes # (Auto) 3.29, Monocytes # (Auto) 0.47, Eosinophils # (Auto) 0.09, Basophils # (Auto) 0.03 09/01/16 21:50 Test 09/01/16 21:30 09/01/16 21:50 Urine Color DK YELLOW Urine Appearance CLOUDY (CLEAR) Urine pH 6.0 (4.5-7.5) Urine Specific [place] 1.031 (1.000-1.030) Urine Protein TRACE (NEG) Urine Glucose (UA) NEG (NEG) Urine Ketones TRACE (NEG) Urine Occult Blood NEG (NEG) Urine Nitrite NEG (NEG) Urine Bilirubin NEG (NEG) Urine Urobilinogen NEG (NEG) Urine Leukocyte Esterase TRACE (NEG) Urine WBC (Auto) 5-10 /hpf (0-5) Urine RBC (Auto) 0-4 /hpf (0-4) Urine Hyaline Casts (Auto) 10-30 /lpf (0-5) Urine Epithelial Cells (Auto) >30 /lpf (0-5) Urine Bacteria (Auto) 1+ (NEG) Urine Renal Epithelial Cells 0-5 /lpf (0-5) Urine Test NEG (NEG) White Blood Count 8.11 K/uL (4.8-10.8) Red Blood Count 4.81 M/uL (4.2-5.4) Hemoglobin 13.8 g/dL (12.0-16.0) Hematocrit 40.1 % (37-47) Mean Corpuscular Volume 83.4 fL (80-100) Mean Corpuscular Hemoglobin 28.7 pg (25-34) Mean Corpuscular Hemoglobin Concent 34.4 g/dl (32-36) Platelet Count 237 K/uL (130-400) Mean Platelet Volume 10.7 fL (7.4-10.4) Neutrophils (%) (Auto) 52.0 % Lymphocytes (%) (Auto) 40.6 % Monocytes (%) (Auto) 5.8 % Eosinophils (%) (Auto) 1.1 % Basophils (%) (Auto) 0.4 % Neutrophils # (Auto) 4.22 K/uL (1.4-6.5) Lymphocytes # (Auto) 3.29 K/uL (1.2-3.4) Monocytes # (Auto) 0.47 K/uL (0.11-0.59) Eosinophils # (Auto) 0.09 K/uL (0-0.5) Basophils # (Auto) 0.03 K/uL (0-0.2) RDW Standard Deviation 40.5 fL (36.4-46.3) RDW Coefficient of Variation 13.3 % (11.5-14.5) Immature Granulocyte % (Auto) 0.1 % Immature Granulocyte # (Auto) 0.01 K/uL (0.00-0.02) Anion Gap 6.0 mmol/L (3-11) Est Creatinine Clear Calc Drug Dose 112.3 ml/min Estimated GFR () 124.4 Estimated GFR (Non- 107.3 BUN/Creatinine Ratio 7.8 (10-20) Calcium Level 8.9 mg/dl (8.5-10.1) Total Bilirubin 0.4 mg/dl (0.2-1) Aspartate Amino Transf (AST/SGOT) 17 U/L (15-37) Alanine Aminotransferase (ALT/SGPT) 24 U/L (12-78) Alkaline Phosphatase 85 U/L (45-117) Total Protein 7.3 gm/dl (6.4-8.2) Albumin 4.2 gm/dl (3.4-5.0) Globulin 3.1 gm/dl (2.5-4.0) Albumin/Globulin Ratio 1.4 (0.9-2) Lipase 73 U/L (73-393) Laboratory results reviewed by me. Medications Administered Medications (Trade) Dose Ordered Sig/Ya Route Start Time Stop Time Status Last Admin Dose Admin Sodium Chloride (Nss 1000ml) 2,000 ml @ 999 mls/hr Q2H1M STAT IV 09/01/16 21:38 09/01/16 23:38 DC 09/01/16 21:38 999 MLS/HR Ondansetron HCl (Zofran Inj) 4 mg NOW STAT IV 09/01/16 21:38 09/01/16 21:40 DC 09/01/16 21:53 4 MG Ketorolac Tromethamine 30 mg 30 mg NOW STAT IV 09/01/16 21:38 09/01/16 21:40 DC 09/01/16 21:53 30 MG Promethazine HCl/ Sodium Chloride (Phenergan Inj/ Nss 50ml) 50.5 ml @ 202 mls/hr 2200 ONCE IV 09/01/16 22:00 09/01/16 22:14 DC 09/01/16 22:23 202 MLS/HR Potassium Chloride (Klor-Con M10) 20 meq NOW STAT PO 09/01/16 22:20 09/01/16 22:22 DC 09/01/16 22:51 20 MEQ Potassium Chloride (Kcl 10 Meq / Wtr) 10 meq NOW STAT IV 09/01/16 22:20 09/01/16 22:22 DC 09/01/16 22:51 10 MEQ ED Course 2134: The patient was evaluated in room B12. A complete history and physical exam was performed. 2137: Toradol 30 mg, Zofran 4 mg IV, Sodium Chloride 2000 ml @ 999 mls/hr IV 2200: Promethazine HCl HCl 12.5 mg/ Sodium Chloride 50.5 ml @ 202 mls/ hr IV 2220: Potassium Chloride 10 meq IV, Potassium Cloride 20 meq PO Medical Decision The patient is a 26 year old female who presents to the ED with complaints of vomiting. Differential diagnoses considered include: viral illness, dehydration , bowel obstruction, , electrolyte imbalance, urinary infection. There is no leukocytosis or concerning anemia. No kidney failure. Potassium is low at 2.7. No hepatitis. testing was negative. Urinalysis shows contamination, no infection. Obstruction series shows no pneumonia, free air or bowel obstruction. On exam, the patient was not febrile or toxic, there was no peritonitis. Patient was given IV Toradol, IV saline, IV Zofran and IV Phenergan. She received both oral and IV potassium. The patient is doing well, she feels improved. I do think she can be discharged. This illness may be viral. She is being discharged with Phenergan , oral potassium, a bland diet and rest. If worsening, she can return. Impression Primary Impression: Vomiting Additional Impressions: Dehydration Hypokalemia Scribe Attestation The scribe's documentation has been prepared under my direction and personally reviewed by me in its entirety. I confirm that the note above accurately reflects all work, treatment, procedures, and medical decision making performed by me. Departure Information Dispostion Home / Self-Care Prescriptions Promethazine Hcl (Phenergan) 25 Mg Tab 25 MG PO Q6H Y for Nausea, #12 TAB Prov: Mohsen Hernandez M.D. 09/01/16 Potassium Chloride (POTASSIUM CHLORIDE ER) 10 Meq Cap 1 CAP PO DAILY for 30 Days, #30 CAP 5 Refills Prov: Mohsen Hernandez M.D. 09/01/16 Referrals Akhil Oneil M.D. (PCP) Forms HOME CARE DOCUMENTATION FORM, IMPORTANT VISIT INFORMATION, Work Instructions Patient Instructions My [facility] [employer] Additional Instructions potassium daily phenergan 1 tab every 6 hours for nausea bland diet---crackers, soup, gatorade, toast return if worsening tylenol for pain Problem Qualifiers
[2016-09-01 22:00] LABS: MANUAL MICROSCOPIC REQUIRED? NO; REVIEW REQ? YES; URINE APPEARANCE CLOUDY (CLEAR); URINE COLOR DK YELLOW; URINE EPITHELIAL CELL AUTO >30 /lpf (0-5); URINE NITRITE NEG (NEG); URINE SPECIFIC GRAVITY 1.031 (1.000-1.030); UROBILINOGEN NEG (NEG); ZZUR CULT IF INDIC CLEAN CATCH YES
[2016-09-01] MEDS ORDERED: PROMETHAZINE HCL INJ 12.5 MG in SODIUM CHLORIDE 0.9% 50ML 50 ML IV ONE (22:00)
[2016-09-01 22:02] LABS: BASO % 0.4 %; BASO ABS # 0.03 K/uL (0-0.2); COMPLETE YES; EOS % 1.1 %; HEMATOCRIT 40.1 % (37-47); IG% 0.1 %; LYMPH % 40.6 %; LYMPH ABS # 3.29 K/uL (1.2-3.4); MEAN CELL VOLUME 83.4 fL (80-100); MEAN CORPUSCULAR HEMOGLOBIN 28.7 pg (25-34); MEAN CORPUSCULAR HGB CONC 34.4 g/dl (32-36); MEAN PLATELET VOLUME 10.7 fL (7.4-10.4); MONO % 5.8 %; PLATELET COUNT 237 K/uL (130-400); RED BLOOD COUNT 4.81 M/uL (4.2-5.4); WHITE BLOOD COUNT 8.11 K/uL (4.8-10.8)
[2016-09-01 22:02] LABS: URINE BILIRUBIN NEG (NEG)
[2016-09-01] MEDS ORDERED: QUET1TAB30 PO (22:18)
[2016-09-01 22:19] LABS: BUN/CREATININE RATIO 7.8 (10-20); CALCIUM 8.9 mg/dl (8.5-10.1); CREATININE 0.77 mg/dl (0.60-1.20); POTASSIUM 2.7 mmol/L (3.5-5.1)
[2016-09-01] MEDS ORDERED: POTASSIUM CHLORIDE 10 MEQ / 100ML WTR IV STA (22:20)
[2016-09-01] MEDS ORDERED: POTASSIUM CHLORIDE 10 MEQ TABCR PO STA (22:20)
--- NOTE | 2016-09-01 22:20 | DIAGNOSTIC IMAGING REPORT ---
ABDOMEN 2VIEW W/PA CHEST RTN CLINICAL HISTORY: Abdominal pain, nausea, headache. COMPARISON STUDY: 12/12/2014 FINDINGS: The erect chest reveals no evidence of free air. There is no evidence of focal pulmonary consolidation.] Erect and supine views of the abdomen reveal no abnormally dilated loops of large or small bowel. There are no transition zone to indicate bowel obstruction. IMPRESSION: No evidence of bowel obstruction. No evidence of free air. Electronically signed by: Brady Hallman M.D. 09/01/2016 10:19 PM Dictated Date/Time: 09/01/2016 10:18 PM
[2016-09-01 22:22] LABS: ALB/GLOB RATIO 1.4 (0.9-2)
[2016-09-01] MEDS ORDERED: PROM25TA16 PO (22:52)
[2016-09-01] MEDS ORDERED: ZFRODT/8 PO (22:52)
[2016-09-01] MEDS ORDERED: NRN800 PO (22:52)
[2016-09-01] MEDS ORDERED: POTA1CAP2 PO (23:23)
[2016-09-01] MEDS ORDERED: PROM25TA9 PO (23:23)
[2016-09-01 23:48] VITALS: BP 140/89; PULSE 86; O2SAT 100
== END 2016-09-01 23:55 | disposition home or self-care (01) ==
LOC: C.EDB 20:29
DX: R11.10 Vomiting, unspecified (principal); E86.0 Dehydration; E87.6 Hypokalemia; Z83.3 Family history of diabetes mellitus; Z82.49 Family history of ischemic heart disease and other diseases of the circulatory system; F17.210 Nicotine dependence, cigarettes, uncomplicated; Z79.3 Long term (current) use of hormonal contraceptives; Z79.899 Other long term (current) drug therapy

== ENCOUNTER 2016-09-07 01:40 | Emergency (ER) | payer OTHER ==
[~2016-09-07] VITALS: Ht 157.5 cm; Wt 82.0 kg
[~2016-09-07 01:40] MED LIST changes: +NRN800 PO; +POTA1CAP2 PO; +PROM25TA16 PO; +PROM25TA9 PO; +QUET1TAB30 PO; +RIZA10TA18 PO; +ZFRODT/8 PO
[2016-09-07 01:46] VITALS: TEMP 36.6; Ht 157.5 cm; Wt 82.0 kg
[2016-09-07] MEDS ORDERED: SODIUM CHLORIDE 0.9% 1000ML 2,000 ML IV STA (01:53)
[2016-09-07] MEDS ORDERED: DiphenhydrAMINE HCL 50 MG/ML VIAL IV STA (01:53)
[2016-09-07] MEDS ORDERED: KETOROLAC TROMETHAMINE 30 MG/ML VIAL IV STA (01:53)
[2016-09-07] MEDS ORDERED: PROMETHAZINE HCL INJ 25 MG/ML 1 ML VIAL IV STA (01:53)
--- NOTE | 2016-09-07 03:34 | EMERGENCY ROOM VISIT NOTE ---
History Report prepared by Nadine: Moy Noble Under the Supervision of: Dr. Nj Maddox M.D. First contact with patient: 01:52 Chief Complaint: NAUSEA Stated Complaint: NAUSEA,VOMITING(1DAY) CAN'T KEEP ANYTHING DOWN History of Present Illness The patient is a 26 year old female who presents to the Emergency Room with complaints of persistent nausea since approximately [id number] tonight. The patient has also experienced multiple episodes of vomiting. She was in the ED one week ago with nausea, and was feeling better until tonight. She had Phenergan and Zofran with minimal relief. She also has some cramping abdominal pain. The patient denies fevers, chills, or shortness of breath. The patient is a smoker. Source of History: patient Onset: tonight Position: other (GI) Quality: other (nausea) Timing: other (persistent) Associated Symptoms: + abdominal pain, + vomiting, No SOB, No chills, No fevers Review of Systems See HPI for pertinent positives & negatives. A total of 10 systems reviewed and were otherwise negative. Past Medical & Surgical Medical Problems: (1) Migraine (2) Tonsillectomy (3) Vaginal delivery Family History Cancer Diabetes mellitus Hypertension Social History Smoking Status: Never Smoker Alcohol Use: none Drug Use: none Marital Status: single, in relationship Housing Status: lives with family Occupation Status: employed Current/Historical Medications Scheduled Gabapentin (Gabapentin), 800 MG PO TID Medroxyprogesterone Acetate (C (Depo-Provera Contraceptiv), 1 DOSE INJ EVERY 3 MONTHS Pantoprazole (Protonix), 40 MG PO DAILY Potassium Chloride (Potassium Chloride Er), 1 CAP PO DAILY Promethazine HCl (Promethazine HCl), 1 TAB PO PRN UD Quetiapine Fumarate (Seroquel), 25 MG PO HS Scheduled PRN Albuterol Hfa (Ventolin Hfa), 2 PUFFS INH QID PRN for SOB/Wheezing Ondansetron (Ondansetron Odt), 8 MG PO Q8 PRN for Nausea Promethazine Hcl (Phenergan), 25 MG PO Q6H PRN for Nausea Rizatriptan Benzoate (Maxalt), 10 MG PO DIRECTED PRN for Headache Allergies Coded Allergies: Azithromycin (Unverified Allergy, Unknown, HIVES, 07/11/16) Macrolides (Verified Allergy, Unknown, UNKNOWN, 07/11/16) Sulfa Antibiotics (Verified Allergy, Unknown, UNKNOWN, 07/11/16) Sulfamethoxazole w/Trimethoprim (Unverified Allergy, Unknown, [facility], 07/11/16) Uncoded Allergies: KETALIDES (Allergy, Unknown, UNKNOWN, 08/27/13) Physical Exam Vital Signs Date Time Temp Pulse Resp B/P Pulse Ox O2 Delivery O2 Flow Rate FiO2 09/07/16 04:05 88 20 127/81 100 09/07/16 01:46 36.6 114 20 104/70 98 Room Air Physical Exam GENERAL: Patient is well appearing and in no acute distress. HEENT: No acute trauma, normocephalic atraumatic, mucous membranes dry, no nasal congestion, no scleral icterus. Poor dentition. NECK: No stridor, no adenopathy, no meningismus, trachea is midline. LUNGS: No dyspnea. Clear to auscultation and equal bilaterally. No wheeze, no rhonchi. HEART: Mildly tachycardic, regular rhythm. No murmurs, rubs, gallops appreciated. ABDOMEN: Soft, nontender, bowel sounds positive, no masses appreciated, no peritonitis. BACK: No midline tenderness, no CVA tenderness EXTREMITIES: Normal motion all extremities, no cyanosis, no edema. NEUROLOGIC: Alert and oriented, no acute motor or sensory deficits, no focal weakness, cranial nerves grossly intact. SKIN: No rash, no jaundice, no diaphoresis. Medical Decision & Procedures ED Course 0150: The patient was evaluated in room B9. A complete history and physical exam was performed. 0153: NSS 2000 ml @ 999 mls/hr, Benadryl 50 mg IV, Toradol 30 mg IV, Phenergan 25 mg IV. 0330: The patient is feeling better. 0400: The patient is feeling good and is ready to be discharged. Medical Decision Differential: Gastroenteritis, Food Borne, Esophageal Perforation, , Electrolyte Abnormality, Dehydration, Intraabdominal Infection, UTI/ Pyelonephritis, Bowel Obstruction, Biliary Pathology, amongst other pathology entertained. 26 yr old female well known to department for frequent visits. GI bug a week ago which had resolved though developed nausea/vomiting tonight. Vague non- specific upper abdominal discomfort with benign abdominal exam thus I do not feel it is acute abdomen. iSTAT looks OK. Pt feeling better with fluids, Phenergan, Benadryl, Toradol. Stressed that she must start taking K that she has yet to begin from last week. Discussed RTED if worsening symptoms. Patient and friend comfortable with this plan. Impression Primary Impression: Vomiting Additional Impression: Dehydration Scribe Attestation The scribe's documentation has been prepared under my direction and personally reviewed by me in its entirety. I confirm that the note above accurately reflects all work, treatment, procedures, and medical decision making performed by me. Departure Information Dispostion Home / Self-Care Referrals Akhil Oneil M.D. (PCP) Forms HOME CARE DOCUMENTATION FORM, IMPORTANT VISIT INFORMATION Patient Instructions ED Nausea Vomiting, My [facility] Additional Instructions It is very important you take your potassium pills as prescribed. Follow up with your primary provider for further evaluation. Problem Qualifiers Primary Impression: Vomiting Vomiting type: unspecified Vomiting Intractability: non-intractable Nausea presence: with nausea Qualified Codes: R11.2 - Nausea with vomiting, unspecified
[2016-09-07 04:05] VITALS: BP 127/81; PULSE 88; O2SAT 100
== END 2016-09-07 04:07 | disposition home or self-care (01) ==
LOC: C.EDB 01:42
DX: R11.2 Nausea with vomiting, unspecified (principal); E86.0 Dehydration; F17.200 Nicotine dependence, unspecified, uncomplicated; Z83.3 Family history of diabetes mellitus; Z82.49 Family history of ischemic heart disease and other diseases of the circulatory system

== ENCOUNTER 2016-09-26 22:57 | Emergency (ER) | payer OTHER ==
[~2016-09-26] VITALS: Ht 157.5 cm; Wt 82.3 kg
[2016-09-26 23:08] VITALS: TEMP 36.8; Ht 157.5 cm; Wt 82.3 kg
[2016-09-26] MEDS ORDERED: KETOROLAC TROMETHAMINE 60 MG/2 ML VIAL IM STA (23:21)
--- NOTE | 2016-09-26 23:23 | EMERGENCY ROOM VISIT NOTE ---
History Report prepared by Nadine: Hank Miller Under the Supervision of: Dr. Bret Machado D.O. First contact with patient: 23:17 Chief Complaint: HEADACHE Stated Complaint: MIGRAINE FOR 2 DAYS, NAUSEA, R TOOTH PAIN History of Present Illness The patient is a 26 year old female who presents to the Emergency Room with complaints of a headache that began two yesterday. She rates her pain a 10/10 in severity. The patient states that this feels like her normal migraines. She also has had a chipped tooth for the past 5 years. She states that her tooth feels like it is pressing down into her mouth. She notes that she is getting teeth pulled soon. She has been experiencing nausea and vomiting. She denies any fevers. Source of History: patient Onset: yesterday Position: head Symptom Intensity: 10/10 Quality: ache Timing: constant Associated Symptoms: + nausea, + vomiting, No fevers Note: She is experiencing dental pain as well. Review of Systems See HPI for pertinent positives and negatives. A total of ten systems were reviewed and were otherwise negative. Past Medical & Surgical Medical Problems: (1) Migraine (2) Tonsillectomy (3) Vaginal delivery Family History Cancer Diabetes mellitus Hypertension Social History Smoking Status: Current Every Day Smoker Alcohol Use: none Drug Use: none Marital Status: single, in relationship Housing Status: lives with family Occupation Status: employed Current/Historical Medications Scheduled Gabapentin (Gabapentin), 800 MG PO TID Medroxyprogesterone Acetate (C (Depo-Provera Contraceptiv), 1 DOSE INJ EVERY 3 MONTHS Pantoprazole (Protonix), 40 MG PO DAILY Penicillin V Potassium (Veetids), 500 MG PO QID Potassium Chloride (Potassium Chloride Er), 1 CAP PO DAILY Promethazine HCl (Promethazine HCl), 1 TAB PO PRN UD Quetiapine Fumarate (Seroquel), 25 MG PO HS Scheduled PRN Albuterol Hfa (Ventolin Hfa), 2 PUFFS INH QID PRN for SOB/Wheezing Ondansetron (Ondansetron Odt), 8 MG PO Q8 PRN for Nausea Promethazine Hcl (Phenergan), 25 MG PO Q6H PRN for Nausea Rizatriptan Benzoate (Maxalt), 10 MG PO DIRECTED PRN for Headache Allergies Coded Allergies: Azithromycin (Unverified Allergy, Unknown, HIVES, 07/11/16) Macrolides (Verified Allergy, Unknown, UNKNOWN, 07/11/16) Sulfa Antibiotics (Verified Allergy, Unknown, UNKNOWN, 07/11/16) Sulfamethoxazole w/Trimethoprim (Unverified Allergy, Unknown, [facility], 07/11/16) Uncoded Allergies: KETALIDES (Allergy, Unknown, UNKNOWN, 08/27/13) Physical Exam Vital Signs Date Time Temp Pulse Resp B/P Pulse Ox O2 Delivery O2 Flow Rate FiO2 09/26/16 23:08 36.8 90 18 116/83 98 Room Air Physical Exam GENERAL: Awake, alert, well-appearing, in no distress HENT: Normocephalic, atraumatic. Oropharynx unremarkable. Right upper molar with obvious dental cavities. EYES: Normal conjunctiva. Sclera non-icteric. NECK: Supple. No nuchal rigidity. FROM. No JVD. RESPIRATORY: Clear to auscultation. CARDIAC: Regular rate, normal rhythm. Extremities warm and well perfused. Pulses equal. ABDOMEN: Soft, non-distended. No tenderness to palpation. No rebound or guarding. No masses. RECTAL: Deferred. MUSCULOSKELETAL: Chest examination reveals no tenderness. The back is symmetrical on inspection without obvious abnormality. There is no CVA tenderness to palpation. No joint edema. LOWER EXTREMITIES: Calves are equal size bilaterally and non-tender. No edema. No discoloration. NEURO: Normal sensorium. No sensory or motor deficits noted. SKIN: No rash or jaundice noted. Medical Decision & Procedures Medications Administered Medications (Trade) Dose Ordered Sig/Ya Route Start Time Stop Time Status Last Admin Dose Admin Ketorolac Tromethamine (Toradol Inj) 60 mg NOW STAT IM 09/26/16 23:21 09/26/16 23:23 DC 09/26/16 23:30 60 MG Penicillin V Potassium (Pen-Vk 500MG Home Pack) 1 homepack UD ONCE PO 09/26/16 23:30 09/26/16 23:31 DC 09/26/16 23:30 1 HOMEPACK Penicillin V Potassium (Veetids Tab) 500 mg NOW ONCE PO 09/26/16 23:30 09/26/16 23:31 DC 09/26/16 23:30 500 MG ED Course 2317: The patient was evaluated in room A9B. A complete history and physical exam was performed. 2321: Ordered Toradol Inj 60 mg IM 2330: Ordered Veetids Tab 500 mg PO, Penicillin V Potassium 1 homepack PO 2342: I reevaluated the patient. Discussed results and discharge instructions: She verbalized understanding and agreement. The patient is ready for discharge. Medical Decision Differential diagnoses include but are not limited to; migraine, tension headache, pulpitis, and dental caries. We will treat the patient with Toradol, and penicillin. This is not the worst headache of her life, this is a classic migraine for her. Impression Primary Impression: Headache Additional Impressions: Migraine Dental caries Scribe Attestation The scribe's documentation has been prepared under my direction and personally reviewed by me in its entirety. I confirm that the note above accurately reflects all work, treatment, procedures, and medical decision making performed by me. Departure Information Dispostion Home / Self-Care Prescriptions Penicillin V Potassium (Veetids) 500 Mg Tab 500 MG PO QID, #40 TAB Prov: Bret Machado, DO 09/26/16 Referrals No Doctor, Assigned (PCP) Forms HOME CARE DOCUMENTATION FORM, IMPORTANT VISIT INFORMATION Patient Instructions ED Tooth Pain, Headaches Migraine and Tension, My [facility] Problem Qualifiers Primary Impression: Headache Headache type: unspecified Headache chronicity pattern: acute headache Intractability: not intractable Qualified Codes: R51 - Headache Additional Impressions: Migraine Migraine type: unspecified Intractability: not intractable
[2016-09-26] MEDS ORDERED: PENICILLIN HOME PACK 500MG (4 DOSES)BTL PO ONE (23:30)
[2016-09-26] MEDS ORDERED: PENICILLIN V POTASSIUM 250 MG TAB PO ONE (23:30)
[2016-09-26] MEDS ORDERED: PENI-82 PO (23:39)
[2016-09-26 23:57] VITALS: BP 126/92; PULSE 89; O2SAT 100
== END 2016-09-26 23:59 | disposition home or self-care (01) ==
LOC: C.EDB 22:58 → C.EDA 23:59
DX: G43.909 Migraine, unspecified, not intractable, without status migrainosus (principal); K02.9 Dental caries, unspecified; R11.0 Nausea

== ENCOUNTER 2016-10-01 21:04 | Emergency (ER) | payer OTHER ==
[~2016-10-01] VITALS: Ht 157.5 cm; Wt 82.4 kg
[~2016-10-01 21:04] MED LIST changes: +PENI-82 PO
[2016-10-01 21:06] VITALS: BP 121/84; PULSE 97; TEMP 37.4; O2SAT 96; Ht 157.5 cm; Wt 82.4 kg
[2016-10-01] MEDS ORDERED: KETOROLAC TROMETHAMINE 60 MG/2 ML VIAL IM STA (21:25)
[2016-10-01] MEDS ORDERED: DiphenhydrAMINE HCL 50 MG/ML VIAL IM STA (21:28)
--- NOTE | 2016-10-01 22:48 | EMERGENCY ROOM VISIT NOTE ---
History First contact with patient: 21:13 Chief Complaint: HEADACHE Stated Complaint: MIGRAINE,JAW PAIN History of Present Illness The patient is a 26 year old female who presents to the Emergency Room with complaints of persistent left jaw pain and recurrent migraine headache for the past 2 days. The patient reports that she was in the emergency department 5 days ago with similar symptoms. She was provided a prescription for Pen-Vee K for possible dental infection. The patient reports that she does have an appointment to have multiple dental extractions performed 06/14/16 at the dental clinic in [place]. She has not noticed any significant gum swelling. She does complain of a mild left earache. She denies any difficulty swallowing. The patient also reports her typical migraine headache with photophobia, phonophobia and nausea. She follows with her PCP for her migraine. She takes Maxalt without any significant relief. She has been to several migraine clinics in the past. The patient denies any recent head injury, fevers, thunderclap onset, difficulty with speech, facial paralysis or risk of carbon monoxide exposure. She rates her headache a 6 out of 10, and dental discomfort a 7 out of 10. Review of Systems 10 system review was performed and was negative except for pertinent positives and negatives as indicated in history of present illness Past Medical/Surgical History Medical Problems: (1) Migraine (2) Tonsillectomy (3) Vaginal delivery Family History Cancer Diabetes mellitus Hypertension Social History Smoking Status: Current Every Day Smoker Alcohol Use: none Drug Use: none Marital Status: single, in relationship Housing Status: lives with family Occupation Status: employed Current/Historical Medications Scheduled Gabapentin (Gabapentin), 800 MG PO TID Medroxyprogesterone Acetate (C (Depo-Provera Contraceptiv), 1 DOSE INJ EVERY 3 MONTHS Penicillin V Potassium (Veetids), 500 MG PO QID Potassium Chloride (Potassium Chloride Er), 1 CAP PO DAILY Promethazine HCl (Promethazine HCl), 1 TAB PO PRN UD Quetiapine Fumarate (Seroquel), 25 MG PO HS Scheduled PRN Albuterol Hfa (Ventolin Hfa), 2 PUFFS INH QID PRN for SOB/Wheezing Ondansetron (Ondansetron Odt), 8 MG PO Q8 PRN for Nausea Pantoprazole (Protonix), 40 MG PO DAILY PRN for HEARTBURN Promethazine Hcl (Phenergan), 25 MG PO Q6H PRN for Nausea Rizatriptan Benzoate (Maxalt), 10 MG PO DIRECTED PRN for Headache Allergies Coded Allergies: Azithromycin (Unverified Allergy, Unknown, HIVES, 09/26/16) Macrolides (Verified Allergy, Unknown, UNKNOWN, 09/26/16) Sulfa Antibiotics (Verified Allergy, Unknown, UNKNOWN, 09/26/16) Sulfamethoxazole w/Trimethoprim (Unverified Allergy, Unknown, UKN, 09/26/16 ) Uncoded Allergies: KETALIDES (Allergy, Unknown, UNKNOWN, 08/27/13) Physical Exam Vital Signs Date Time Temp Pulse Resp B/P Pulse Ox O2 Delivery O2 Flow Rate FiO2 10/01/16 21:06 37.4 97 18 121/84 96 Room Air Pain Rating (0-10): 5.0 Physical Exam CONSTITUTIONAL: Healthy and well nourished. Alert and oriented X 3 with positive affect. HEENT: Normocephalic, atraumatic. Pupils equal, round and reactive. Patient is photophobic, precluding funduscopic exam. Examination of left ear does not show any erythema, effusion or other concerning findings. OROPHARYNX: No obvious gingival erythema, fluctuance or pointing. She is able to open and close the mandible without discomfort. No evidence for Douglas's angina or retropharyngeal abscess. NECK: Full active range of motion without discomfort. No JVD, carotid bruits or nuchal rigidity. RESPIRATORY: Clear to auscultation bilaterally with no wheezing, crackles, rhonchi or stridor. CARDIOVASCULAR: Regular rate and rhythm with no murmurs, rubs or gallops. MUSCULOSKELETAL: Full range of motion of all joints without discomfort. INTEGUMENTARY: No rash or other significant dermatologic conditions noted. NEUROLOGIC: Cranial nerves II-XII grossly intact. No focal neurologic deficits noted. Normal finger to nose test. Negative pronator drift. No ataxia with ambulation. Medical Decision & Procedures Medications Administered Medications (Trade) Dose Ordered Sig/Ya Route Start Time Stop Time Status Last Admin Dose Admin Ketorolac Tromethamine (Toradol Inj) 60 mg NOW STAT IM 10/01/16 21:25 10/01/16 21:26 DC 10/01/16 21:40 60 MG Diphenhydramine HCl (Benadryl Inj) 25 mg ONE STAT IM 10/01/16 21:28 10/01/16 21:29 DC 10/01/16 21:40 25 MG ED Course Patient history and physical exam were performed. Nurse's notes were reviewed. I did review ED notes from the patient's last visit 5 days ago. She was provided a prescription for Pen-Vee K. However looking through , she does not have any record showing that the prescription was filled. The patient reports that she has been taking the antibiotics since leaving the emergency department. Further review medical records shows that the patient is currently on a no narcotics treatment plan after she drove after receiving narcotic analgesics in the emergency department. The patient is aware of this treatment plan. She was administered Toradol 60 mg IM, and she also requested Benadryl as well, and was therefore administered Benadryl 25 mg IM. She was instructed to follow-up with her family doctor to discuss further migraine management, including possible referral to the [facility] in [place]. She was instructed to contact her oral surgeon to see if her appointment can be expedited. She may certainly return to the emergency department for any worsening symptoms. The patient voiced understanding of all discharge instructions, and rated her discomfort a 6 out of 10 at the time of discharge. Medical Decision Impression Primary Impression: Migraine Additional Impression: Pain, dental Departure Information Dispostion Home / Self-Care Condition GOOD Forms HOME CARE DOCUMENTATION FORM, IMPORTANT VISIT INFORMATION Patient Instructions My [facility] [employer] Additional Instructions Follow-up with your oral surgeon for further dental pain management. Suggest calling the office to see if they have a sooner appointment. Follow-up with your family doctor for further migraine management. You may also wish to contact the [facility] in [place] for another migraine evaluation. Their contact number is [phone]. Suggest checking with your family doctor or insurance carrier to see if you need a referral. Problem Qualifiers Primary Impression: Migraine Migraine type: unspecified Status migrainosus presence: without status migrainosus Intractability: not intractable Qualified Codes: G43.909 - Migraine, unspecified, not intractable, without status migrainosus
== END 2016-10-01 21:47 | disposition home or self-care (01) ==
LOC: C.EDB 21:04 → C.EDD 21:47
DX: G43.909 Migraine, unspecified, not intractable, without status migrainosus (principal); K08.89 Other specified disorders of teeth and supporting structures; F17.210 Nicotine dependence, cigarettes, uncomplicated; Z80.9 Family history of malignant neoplasm, unspecified; Z83.3 Family history of diabetes mellitus; Z82.49 Family history of ischemic heart disease and other diseases of the circulatory system; Z79.899 Other long term (current) drug therapy

== ENCOUNTER 2016-10-12 00:10 | Emergency (ER) | payer OTHER ==
[~2016-10-12] VITALS: Ht 157.5 cm; Wt 82.4 kg
[2016-10-12 00:18] VITALS: TEMP 37; Ht 157.5 cm; Wt 82.4 kg
[2016-10-12] MEDS ORDERED: DiphenhydrAMINE HCL 50 MG/ML VIAL IM STA (00:26)
[2016-10-12] MEDS ORDERED: KETOROLAC TROMETHAMINE 60 MG/2 ML VIAL IM STA (00:26)
--- NOTE | 2016-10-12 00:40 | EMERGENCY ROOM VISIT NOTE ---
History Report prepared by Nadine: López Keller Under the Supervision of: Dr. Laura Ayala M.D. First contact with patient: 00:23 Chief Complaint: HEADACHE Stated Complaint: MIGRAINE HEADACHE History of Present Illness The patient is a 26 year old female who presents to the Emergency Room with complaints of a constant migraine starting this morning. The patient states that she has taken Tylenol and ibuprofen, and nothing has helped. The patient states that this is similar to her normal migraines. The patient denies any fever, neck pain, and vomiting. Source of History: patient Onset: this morning Position: head Quality: other (migraine) Timing: constant Associated Symptoms: No fevers, No neck pain, No vomiting Review of Systems See HPI for pertinent positives & negatives. A total of 10 systems reviewed and were otherwise negative. Past Medical & Surgical Medical Problems: (1) Migraine (2) Tonsillectomy (3) Vaginal delivery Family History Cancer Diabetes mellitus Hypertension Social History Smoking Status: Current Every Day Smoker Alcohol Use: none Drug Use: none Marital Status: single, in relationship Housing Status: lives with family Occupation Status: employed Current/Historical Medications Scheduled Gabapentin (Gabapentin), 800 MG PO TID Medroxyprogesterone Acetate (C (Depo-Provera Contraceptiv), 1 DOSE INJ EVERY 3 MONTHS Potassium Chloride (Potassium Chloride Er), 1 CAP PO DAILY Promethazine HCl (Promethazine HCl), 1 TAB PO PRN UD Quetiapine Fumarate (Seroquel), 25 MG PO HS Scheduled PRN Albuterol Hfa (Ventolin Hfa), 2 PUFFS INH QID PRN for SOB/Wheezing Ondansetron (Ondansetron Odt), 8 MG PO Q8 PRN for Nausea Pantoprazole (Protonix), 40 MG PO DAILY PRN for HEARTBURN Rizatriptan Benzoate (Maxalt), 10 MG PO DIRECTED PRN for Headache Allergies Coded Allergies: Azithromycin (Unverified Allergy, Unknown, HIVES, 10/12/16) Macrolides (Verified Allergy, Unknown, UNKNOWN, 10/12/16) Sulfa Antibiotics (Verified Allergy, Unknown, UNKNOWN, 10/12/16) Sulfamethoxazole w/Trimethoprim (Unverified Allergy, Unknown, UKN, 10/12/16 ) Uncoded Allergies: KETALIDES (Allergy, Unknown, UNKNOWN, 08/27/13) Physical Exam Vital Signs Date Time Temp Pulse Resp B/P Pulse Ox O2 Delivery O2 Flow Rate FiO2 10/12/16 01:57 90 18 117/65 98 10/12/16 00:18 37.0 89 18 106/69 100 Room Air Physical Exam Vital signs reviewed. General: Well-appearing female, in no significant distress. HEENT: Poor dentition. No scleral icterus, PERRLA, neck supple. Atraumatic. Cardiovascular: Regular rate and rhythm, no extra sounds. Pulmonary: Clear to auscultation bilaterally, normal work of breathing. Abdomen: Soft, nontender, nondistended, positive bowel sounds. Musculoskeletal: Atraumatic, no peripheral edema. Neurologic: Patient awake alert and oriented x 3, full strength in all 4 extremities. Cranial nerves 2 through 12 grossly intact. Skin: Warm, dry, no rash Medical Decision & Procedures Medications Administered Medications (Trade) Dose Ordered Sig/Ya Route Start Time Stop Time Status Last Admin Dose Admin Ketorolac Tromethamine (Toradol Inj) 60 mg NOW STAT IM 10/12/16 00:26 10/12/16 00:28 DC 10/12/16 00:40 60 MG Diphenhydramine HCl (Benadryl Inj) 25 mg NOW STAT IM 10/12/16 00:26 10/12/16 00:28 DC 10/12/16 00:40 25 MG ED Course 0025: Past medical records reviewed. The patient was evaluated in room B6. A complete history and physical examination was performed. 0026: Toradol Inj 60mg IM, Benadryl Inj 60mg IM 0155: Upon reevaluation, the patient appeared to have improvement of her symptoms. I discussed findings with her. She verbalized agreement of the treatment plan. She was discharged home. Medical Decision Differential diagnosis: Intracranial hemorrhage, intracranial mass, migraine headache, tension headache , sinusitis, meningitis This patient was evaluated and appeared to be in no significant distress. Physical examination is fairly unrevealing. There is no meningeal signs appreciated. Patient states this is her usual headache. She was given IM Toradol and IM Benadryl. Patient was discharged to the care of her ride. She' ll follow-up with her physician this week for reevaluation return to the ER for worsening of symptoms or any medical concerns. Impression Primary Impression: Migraine headache Scribe Attestation The scribe's documentation has been prepared under my direction and personally reviewed by me in its entirety. I confirm that the note above accurately reflects all work, treatment, procedures, and medical decision making performed by me. Departure Information Dispostion Home / Self-Care Referrals No Doctor, Assigned (PCP) Forms HOME CARE DOCUMENTATION FORM, IMPORTANT VISIT INFORMATION Patient Instructions My [facility] Additional Instructions Diagnosis: Migraine headache Resume your medications as prescribed. Drink plenty of clear fluids. Follow-up with your physician this week for reevaluation. Return to the ER for worsening of symptoms or any medical concerns.
[2016-10-12 01:57] VITALS: BP 117/65; PULSE 90; O2SAT 98
== END 2016-10-12 01:57 | disposition home or self-care (01) ==
LOC: C.EDB 00:11
DX: G43.909 Migraine, unspecified, not intractable, without status migrainosus (principal); F17.200 Nicotine dependence, unspecified, uncomplicated; Z83.3 Family history of diabetes mellitus; Z82.49 Family history of ischemic heart disease and other diseases of the circulatory system

== ENCOUNTER 2016-10-20 00:30 | Emergency (ER) | payer OTHER ==
[~2016-10-20] VITALS: Ht 157.5 cm; Wt 82.3 kg
[~2016-10-20 00:30] MED LIST changes: -PENI-82 PO; -PROM25TA9 PO
[2016-10-20 00:33] VITALS: TEMP 36.8; Ht 157.5 cm; Wt 82.3 kg
--- NOTE | 2016-10-20 00:47 | EMERGENCY ROOM VISIT NOTE ---
History Report prepared by Nadine: Moy Noble Under the Supervision of: Dr. Bret Machado D.O. First contact with patient: 00:37 Chief Complaint: NAUSEA Stated Complaint: NAUSEA,SEVERE HEARTBURN GOING DOWN CENTER OF BACK Nursing Triage Summary: Patient ambulatory to triage with an upright and steady gait. Patient states "I am extremely nauseated. I have acid reflux in my throat really bad that's burning down the center of my back." Symptoms started around 1900 this evening. History of Present Illness The patient is a 26 year old female who presents to the Emergency Room with complaints of persistent nausea since 1900 this evening. The patient also complains of burning in her throat which is consistent with past reflux. The burning sensation is felt towards her back as well. The patient had Nexium. She has had relief from Protonix in the past. She denies any recent fevers or diarrhea. Source of History: patient Onset: 1899 this evening Position: other (GI) Quality: other (nausea) Timing: other (persistent) Associated Symptoms: + sorethroat (burning), No diarrhea, No fevers Review of Systems See HPI for pertinent positives and negatives. A total of ten systems were reviewed and were otherwise negative. Past Medical & Surgical Medical Problems: (1) Migraine (2) Tonsillectomy (3) Vaginal delivery Family History Cancer Diabetes mellitus Hypertension Social History Smoking Status: Current Every Day Smoker Alcohol Use: none Drug Use: none Marital Status: single, in relationship Housing Status: lives with family Occupation Status: employed Current/Historical Medications Scheduled Gabapentin (Gabapentin), 800 MG PO TID Medroxyprogesterone Acetate (C (Depo-Provera Contraceptiv), 1 DOSE INJ EVERY 3 MONTHS Potassium Chloride (Potassium Chloride Er), 1 CAP PO DAILY Promethazine HCl (Promethazine HCl), 1 TAB PO PRN UD Quetiapine Fumarate (Seroquel), 25 MG PO HS Scheduled PRN Albuterol Hfa (Ventolin Hfa), 2 PUFFS INH QID PRN for SOB/Wheezing Ondansetron (Ondansetron Odt), 8 MG PO Q8 PRN for Nausea Pantoprazole (Protonix), 40 MG PO DAILY PRN for HEARTBURN Rizatriptan Benzoate (Maxalt), 10 MG PO DIRECTED PRN for Headache Allergies Coded Allergies: Azithromycin (Unverified Allergy, Unknown, HIVES, 10/20/16) Macrolides (Verified Allergy, Unknown, UNKNOWN, 10/20/16) Sulfa Antibiotics (Verified Allergy, Unknown, UNKNOWN, 10/20/16) Sulfamethoxazole w/Trimethoprim (Unverified Allergy, Unknown, UKN, 10/20/16 ) Uncoded Allergies: KETALIDES (Allergy, Unknown, UNKNOWN, 08/27/13) Physical Exam Vital Signs Date Time Temp Pulse Resp B/P Pulse Ox O2 Delivery O2 Flow Rate FiO2 10/20/16 00:33 36.8 97 18 119/80 97 Room Air Physical Exam GENERAL: Awake, alert, well-appearing, in no distress HENT: Normocephalic, atraumatic. Oropharynx unremarkable. EYES: Normal conjunctiva. Sclera non-icteric. NECK: Supple. No nuchal rigidity. FROM. No JVD. RESPIRATORY: Clear to auscultation. CARDIAC: Regular rate, normal rhythm. Extremities warm and well perfused. Pulses equal. ABDOMEN: Soft, non-distended. No tenderness to palpation. No rebound or guarding. No masses. RECTAL: Deferred. MUSCULOSKELETAL: Chest examination reveals no tenderness. The back is symmetrical on inspection without obvious abnormality. There is no CVA tenderness to palpation. No joint edema. LOWER EXTREMITIES: Calves are equal size bilaterally and non-tender. No edema. No discoloration. NEURO: Normal sensorium. No sensory or motor deficits noted. SKIN: No rash or jaundice noted. Medical Decision & Procedures Medications Administered Medications (Trade) Dose Ordered Sig/Ya Route Start Time Stop Time Status Last Admin Dose Admin Ondansetron HCl (Zofran Odt) 4 mg ONE ONCE PO 10/20/16 01:00 10/20/16 01:01 DC 10/20/16 00:58 4 MG Miscellaneous Medication (Gi Cocktail) 24 ml NOW STAT PO 10/20/16 00:53 10/20/16 00:55 DC 10/20/16 00:53 24 ML Al Hydroxide/Mg Hydroxide (Maalox Susp) 30 ml STK-MED ONCE .ROUTE 10/20/16 00:56 10/20/16 00:57 DC 10/20/16 00:59 30 ML Lidocaine HCl (Viscous Lidocaine 2% Soln) 20 ml STK-MED ONCE .ROUTE 10/20/16 00:57 10/20/16 00:58 DC 10/20/16 00:59 20 ML ED Course 0045: The patient was evaluated in room B4b. A complete history and physical exam was performed. 0053: GI Cocktail 24 ml PO. 0100: Zofran Odt 4 mg PO. 0115: I reevaluated the patient. Discussed results and discharge instructions: She verbalized understanding and agreement. The patient is ready for discharge. Medical Decision Differential diagnosis includes gastritis, GERD, reflux. Impression Primary Impression: GERD (gastroesophageal reflux disease) Scribe Attestation The scribe's documentation has been prepared under my direction and personally reviewed by me in its entirety. I confirm that the note above accurately reflects all work, treatment, procedures, and medical decision making performed by me. Departure Information Dispostion Home / Self-Care Referrals No Doctor, Assigned (PCP) Forms HOME CARE DOCUMENTATION FORM, IMPORTANT VISIT INFORMATION Patient Instructions GERD, My [facility] Problem Qualifiers Primary Impression: GERD (gastroesophageal reflux disease) Esophagitis presence: esophagitis presence not specified Qualified Codes: K21.9 - Gastro-esophageal reflux disease without esophagitis
[2016-10-20] MEDS ORDERED: GI COCKTAIL PO STA (00:53)
[2016-10-20] MEDS ORDERED: ALUMINUM/MAGNESIUM SUSP 30 ML UDC ONE (00:56)
[2016-10-20] MEDS ORDERED: LIDOCAINE HCL 2% VISC SOLN 20 ML UDC ONE (00:57)
[2016-10-20] MEDS ORDERED: ONDANSETRON 4MG OD TAB PO ONE (01:00)
[2016-10-20 01:26] VITALS: BP 117/89; PULSE 85; O2SAT 98
[2016-10-20] MEDS ORDERED: PENI-82 PO (01:38)
== END 2016-10-20 01:27 | disposition home or self-care (01) ==
LOC: C.EDB 00:31
DX: K21.9 Gastro-esophageal reflux disease without esophagitis (principal); Z80.9 Family history of malignant neoplasm, unspecified; Z83.3 Family history of diabetes mellitus; Z82.49 Family history of ischemic heart disease and other diseases of the circulatory system; F17.210 Nicotine dependence, cigarettes, uncomplicated; Z79.899 Other long term (current) drug therapy; Z79.3 Long term (current) use of hormonal contraceptives

== ENCOUNTER 2016-11-12 01:21 | Emergency (ER) | payer OTHER ==
[~2016-11-12] VITALS: Ht 157.5 cm; Wt 82.1 kg
[~2016-11-12 01:21] MED LIST changes: +PENI-82 PO
[2016-11-12 01:24] VITALS: TEMP 37.4; Ht 157.5 cm; Wt 82.1 kg
[2016-11-12] MEDS ORDERED: PROMETHAZINE HCL INJ 25 MG/ML 1 ML VIAL IM STA (01:45)
[2016-11-12] MEDS ORDERED: KETOROLAC TROMETHAMINE 60 MG/2 ML VIAL IM STA (01:45)
[2016-11-12] MEDS ORDERED: DiphenhydrAMINE HCL 50 MG/ML VIAL IM STA (01:45)
[2016-11-12] MEDS ORDERED: ROPI0.5T15 PO (01:53)
[2016-11-12] MEDS ORDERED: FLVHFA110 INH (01:54)
[2016-11-12 02:01] VITALS: BP 124/68; PULSE 72; O2SAT 100
--- NOTE | 2016-11-12 03:02 | EMERGENCY ROOM VISIT NOTE ---
History First contact with patient: 01:42 Chief Complaint: NECK PAIN Stated Complaint: SEVERE RIGHT SIDED NECK PAIN,MIGRAINE,NAUSEA History of Present Illness The patient is a 26 year old female who presents to the Emergency Room with complaints of headache with right-sided neck pain for the past few days similar to prior. Headache was slow in onset. She describes the pain as aching, ranging in severity currently 7 out of 10. Patient denies chest pain, dyspnea, fever, chills, neck stiffness, cervical pain, cold symptoms, numbness, tingling , weakness, vision problems, abdominal pain, vision changes. Patient states this feels like typical migraine for her. No other concerns per patient. Review of Systems See HPI for pertinent positives & negatives. A total of 10 systems reviewed and were otherwise negative. Past Medical/Surgical History Medical Problems: (1) Migraine (2) Tonsillectomy (3) Vaginal delivery Family History Cancer Diabetes mellitus Hypertension Social History Smoking Status: Current Every Day Smoker Alcohol Use: none Drug Use: none Marital Status: single, in relationship Housing Status: lives with family Occupation Status: employed Current/Historical Medications Scheduled Gabapentin (Gabapentin), 800 MG PO TID Medroxyprogesterone Acetate (C (Depo-Provera Contraceptiv), 1 DOSE INJ EVERY 3 MONTHS Ropinirole (Requip), 0.5 MG PO HS Scheduled PRN Albuterol Hfa (Ventolin Hfa), 2 PUFFS INH QID PRN for SOB/Wheezing Fluticasone Propionate (Flovent Hfa), 2 PUFFS INH BID PRN for Shortness of Breath Pantoprazole (Protonix), 40 MG PO DAILY PRN for HEARTBURN Rizatriptan Benzoate (Maxalt), 10 MG PO DIRECTED PRN for Headache Allergies Coded Allergies: Azithromycin (Unverified Allergy, Unknown, HIVES, 11/12/16) Macrolides (Verified Allergy, Unknown, UNKNOWN, 11/12/16) Sulfa Antibiotics (Verified Allergy, Unknown, UNKNOWN, 11/12/16) Sulfamethoxazole w/Trimethoprim (Unverified Allergy, Unknown, UKN, 11/12/16 ) Uncoded Allergies: KETALIDES (Allergy, Unknown, UNKNOWN, 08/27/13) Physical Exam Vital Signs Date Time Temp Pulse Resp B/P (MAP) Pulse Ox O2 Delivery O2 Flow Rate FiO2 11/12/16 02:01 72 20 124/68 100 11/12/16 01:24 37.4 110 18 117/82 98 Room Air Pain Rating (0-10): 8.0 Physical Exam VITALS: Vitals are noted on the nurse's note and reviewed by myself. Vital signs stable. GENERAL: Pleasant female, in no acute distress, nondiaphoretic, well-developed well-nourished. SKIN: The skin was without rashes, erythema, edema, or bruising. There is no tenting of the skin. Capillary reflex less than 2 seconds. HEAD: Normocephalic atraumatic. EARS: External auditory canals clear, tympanic membranes pearly horton without erythema or effusion bilaterally. EYES: Pupils equal round and reactive to light and accommodation. Conjunctivae without injection, sclerae without icterus. Extraocular movements intact. NOSE: Patent, turbinates without inflammation or discharge. No sinus tenderness. MOUTH: Mucous membranes moist. Pharynx without erythema or exudate. Uvula midline. Airway patent. Tongue does not deviate. NECK: Supple without nuchal rigidity. No lymphadenopathy. No thyromegaly. Cervical spine is nontender. No JVD. No meningeal signs HEART: Regular rate and rhythm without murmurs gallops or rubs. LUNGS: Clear to auscultation bilaterally without wheezes, rales or rhonchi. No dullness to percussion. No retractions or accessory muscle use. ABDOMEN: Positive bowel sounds x 4. Normal tympanic percussion. Soft, nontender, without masses or organomegaly. Barnard sign negative. No guarding or rebound tenderness. MUSCULOSKELETAL: No muscle atrophy, erythema, or edema noted. NEURO: Patient was alert and oriented to person place and time. Normal sensation to light and sharp touch. No focal neurological deficits. Medical Decision & Procedures Medications Administered Medications (Trade) Dose Ordered Sig/Ya Route Start Time Stop Time Status Last Admin Dose Admin Ketorolac Tromethamine (Toradol Inj) 60 mg NOW STAT IM 11/12/16 01:45 11/12/16 01:46 DC 11/12/16 01:55 60 MG Diphenhydramine HCl (Benadryl Inj) 25 mg NOW STAT IM 11/12/16 01:45 11/12/16 01:46 DC 11/12/16 01:56 25 MG Promethazine HCl (Phenergan Inj) 25 mg NOW STAT IM 11/12/16 01:45 11/12/16 01:46 DC 11/12/16 01:56 25 MG ED Course Prior records/ancillary studies reviewed. Additional history obtained from family. Triage Nursing notes reviewed. The patient's history was concerning for headache. Differential diagnosis: Etiologies such as migraine headache, meningitis, sinusitis, CO exposure, ICH, SAH, infection, tumor, headache, sinus thrombosis, arterial dissection, as well as others were entertained. Physical examination findings: As above. Non-focal. ER treatment provided: Toradol, Benadryl and Phenergan per patient standard protocol On reassessment the patient felt better. Diagnostics interpreted by me: Deferred This appears to be consistent with migraine. Patient has a long-standing history of this. Symptoms are similar. She is well-known to this ER for frequent migraine visits. Patient is neurovascularly and neurologically intact. No signs of meningitis. She is well-appearing. She is advised follow- up with family care in neurology in a few days or here in the ER sooner for headache, fevers, neck stiffness, worsening signs or symptoms or as needed. By the evaluation outlined above emergent etiologies such as meningitis, sinusitis , CO exposure, ICH, SAH, infection, temporal arteritis, tumor, sinus thrombosis , arterial dissection, as well as others were deemed relatively unlikely. The pt informed about the findings as listed above. All questions were answered and pleased with the treatment. Return instructions were outlined and the patient was discharged in stable condition. Referral: The patient was referred back to their primary care physician for follow-up in 2 to 3 days for a recheck of the current condition. Medical Decision As above Impression Primary Impression: Migraine Departure Information Dispostion Home / Self-Care Condition GOOD Referrals No Doctor, Assigned (PCP) Forms WORK / SCHOOL INSTRUCTIONS, HOME CARE DOCUMENTATION FORM, IMPORTANT VISIT INFORMATION Patient Instructions My [facility] [employer] Additional Instructions DO NOT drive, drink alcohol, operate machinery, or perform dangerous activities today. You were given medications in the ER that can affect your ability to safely function or operate a vehicle. Rest today in a quiet, peaceful, dark environment and get a full 8-10 hrs of sleep tonight. Avoid loud noises, smoke/smoking, alcohol, bright lights, stress, or physical exertion today to minimize the chance the headache may return. Continue current medications. Ibuprofen(Motrin, Advil) may be used for fever or pain. Use 600mg every six hours as needed. Take with food. Avoid using more than 2400mg in a 24 hour period. Do not use 2400mg per day for more than three consecutive days without physician direction. Prolonged inappropriate use can lead to stomach upset or ulcers. (AND/OR) Acetaminophen(Tylenol) may be used for fever or pain. Use 1000mg every six hours as needed. Avoid using more than 3000mg in a 24 hour period. Return to the ER for passing out, worsening headache, vision problems, neck stiffness/pain, fevers, vomiting, worsening of your condition, or as needed. Follow up with your primary physician and/or a neurologist in 2-3 days for a recheck of your current condition. Problem Qualifiers Primary Impression: Migraine Migraine type: without aura Status migrainosus presence: without status migrainosus Intractability: not intractable Qualified Codes: G43.009 - Migraine without aura, not intractable, without status migrainosus
== END 2016-11-12 02:03 | disposition home or self-care (01) ==
LOC: C.EDB 01:22 → C.EDA 02:03
DX: G43.009 Migraine without aura, not intractable, without status migrainosus (principal); Z80.9 Family history of malignant neoplasm, unspecified; Z83.3 Family history of diabetes mellitus; Z82.49 Family history of ischemic heart disease and other diseases of the circulatory system; F17.210 Nicotine dependence, cigarettes, uncomplicated; Z79.899 Other long term (current) drug therapy

== ENCOUNTER 2016-11-24 01:00 | Emergency (ER) | payer OTHER ==
[~2016-11-24] VITALS: Ht 157.5 cm; Wt 82.3 kg
[~2016-11-24 01:00] MED LIST changes: +FLVHFA110 INH; -PENI-82 PO; -POTA1CAP2 PO; -PROM25TA16 PO; -QUET1TAB30 PO; +ROPI0.5T15 PO; -ZFRODT/8 PO
[2016-11-24 01:10] VITALS: TEMP 36.8; Ht 157.5 cm; Wt 82.3 kg
[2016-11-24] MEDS ORDERED: KETOROLAC TROMETHAMINE 60 MG/2 ML VIAL IM STA (01:24)
[2016-11-24] MEDS ORDERED: DiphenhydrAMINE HCL 50 MG/ML VIAL IM STA (01:24)
[2016-11-24] MEDS ORDERED: PROMETHAZINE HCL INJ 25 MG/ML 1 ML VIAL IM STA (01:24)
[2016-11-24 01:58] VITALS: BP 121/87; PULSE 82; O2SAT 100
--- NOTE | 2016-11-24 03:49 | EMERGENCY ROOM VISIT NOTE ---
History First contact with patient: 01:13 Chief Complaint: HEADACHE Stated Complaint: MIGRAINE,NAUSEA,NECK PAIN History of Present Illness The patient is a 26 year old female who presents to the Emergency Room with complaints of headache with right-sided neck pain for the past few days similar to prior. Headache was slow in onset. She describes the pain as aching, ranging in severity currently 7 out of 10. Patient denies chest pain, dyspnea, fever, chills, neck stiffness, cervical pain, cold symptoms, numbness, tingling , weakness, vision problems, abdominal pain, vision changes. Patient states this feels like typical migraine for her. No other concerns per patient. Review of Systems See HPI for pertinent positives & negatives. A total of 10 systems reviewed and were otherwise negative. Past Medical/Surgical History Medical Problems: (1) Migraine (2) Tonsillectomy (3) Vaginal delivery Family History Cancer Diabetes mellitus Hypertension Social History Smoking Status: Current Every Day Smoker Alcohol Use: none Drug Use: none Marital Status: single, in relationship Housing Status: lives with family Occupation Status: employed Current/Historical Medications Scheduled Gabapentin (Gabapentin), 800 MG PO TID Medroxyprogesterone Acetate (C (Depo-Provera Contraceptiv), 1 DOSE INJ EVERY 3 MONTHS Ropinirole (Requip), 0.5 MG PO HS Scheduled PRN Albuterol Hfa (Ventolin Hfa), 2 PUFFS INH QID PRN for SOB/Wheezing Fluticasone Propionate (Flovent Hfa), 2 PUFFS INH BID PRN for Shortness of Breath Pantoprazole (Protonix), 40 MG PO DAILY PRN for HEARTBURN Rizatriptan Benzoate (Maxalt), 10 MG PO DIRECTED PRN for Headache Allergies Coded Allergies: Azithromycin (Unverified Allergy, Unknown, HIVES, 11/24/16) Macrolides (Verified Allergy, Unknown, UNKNOWN, 11/24/16) Sulfa Antibiotics (Verified Allergy, Unknown, UNKNOWN, 11/24/16) Sulfamethoxazole w/Trimethoprim (Unverified Allergy, Unknown, UKN, 11/24/16 ) Uncoded Allergies: KETALIDES (Allergy, Unknown, UNKNOWN, 08/27/13) Physical Exam Vital Signs Date Time Temp Pulse Resp B/P (MAP) Pulse Ox O2 Delivery O2 Flow Rate FiO2 11/24/16 01:58 82 16 121/87 100 Room Air 11/24/16 01:10 36.8 97 18 121/80 99 Room Air Pain Rating (0-10): 7.0 Physical Exam VITALS: Vitals are noted on the nurse's note and reviewed by myself. Vital signs stable. GENERAL: Pleasant female, in no acute distress, nondiaphoretic, well-developed well-nourished. SKIN: The skin was without rashes, erythema, edema, or bruising. There is no tenting of the skin. Capillary reflex less than 2 seconds. HEAD: Normocephalic atraumatic. EARS: External auditory canals clear, tympanic membranes pearly horton without erythema or effusion bilaterally. EYES: Pupils equal round and reactive to light and accommodation. Conjunctivae without injection, sclerae without icterus. Extraocular movements intact. NOSE: Patent, turbinates without inflammation or discharge. No sinus tenderness. MOUTH: Mucous membranes moist. Pharynx without erythema or exudate. Uvula midline. Airway patent. Tongue does not deviate. NECK: Supple without nuchal rigidity. No lymphadenopathy. No thyromegaly. Cervical spine is nontender. No JVD. No meningeal signs HEART: Regular rate and rhythm without murmurs gallops or rubs. LUNGS: Clear to auscultation bilaterally without wheezes, rales or rhonchi. No dullness to percussion. No retractions or accessory muscle use. ABDOMEN: Positive bowel sounds x 4. Normal tympanic percussion. Soft, nontender, without masses or organomegaly. Barnard sign negative. No guarding or rebound tenderness. MUSCULOSKELETAL: No muscle atrophy, erythema, or edema noted. NEURO: Patient was alert and oriented to person place and time. Normal sensation to light and sharp touch. No focal neurological deficits. Medical Decision & Procedures Medications Administered Medications (Trade) Dose Ordered Sig/Ya Route Start Time Stop Time Status Last Admin Dose Admin Ketorolac Tromethamine (Toradol Inj) 60 mg NOW STAT IM 11/24/16 01:24 11/24/16 01:26 DC 11/24/16 01:37 60 MG Diphenhydramine HCl (Benadryl Inj) 50 mg NOW STAT IM 11/24/16 01:24 11/24/16 01:26 DC 11/24/16 01:37 50 MG Promethazine HCl (Phenergan Inj) 25 mg NOW STAT IM 11/24/16 01:24 11/24/16 01:26 DC 11/24/16 01:36 25 MG ED Course Prior records/ancillary studies reviewed. Additional history obtained from family. Triage Nursing notes reviewed. The patient's history was concerning for headache. Differential diagnosis: Etiologies such as migraine headache, meningitis, sinusitis, CO exposure, ICH, SAH, infection, tumor, headache, sinus thrombosis, arterial dissection, as well as others were entertained. Physical examination findings: As above. Non-focal. ER treatment provided: Toradol, Benadryl and Phenergan per patient standard protocol On reassessment the patient felt better. Diagnostics interpreted by me: Deferred This appears to be consistent with migraine. Patient has a long-standing history of this. Symptoms are similar. She is well-known to this ER for frequent migraine visits. Patient is neurovascularly and neurologically intact. No signs of meningitis. She is well-appearing. She is advised follow- up with family care in neurology in a few days or here in the ER sooner for headache, fevers, neck stiffness, worsening signs or symptoms or as needed. By the evaluation outlined above emergent etiologies such as meningitis, sinusitis , CO exposure, ICH, SAH, infection, temporal arteritis, tumor, sinus thrombosis , arterial dissection, as well as others were deemed relatively unlikely. The pt informed about the findings as listed above. All questions were answered and pleased with the treatment. Return instructions were outlined and the patient was discharged in stable condition. Referral: The patient was referred back to their primary care physician for follow-up in 2 to 3 days for a recheck of the current condition. Medical Decision As above Impression Primary Impression: Migraine Departure Information Dispostion Home / Self-Care Condition GOOD Referrals No Doctor, Assigned (PCP) Forms HOME CARE DOCUMENTATION FORM, IMPORTANT VISIT INFORMATION Patient Instructions Headaches Migraine and Tension, [facility] [employer] Additional Instructions DO NOT drive, drink alcohol, operate machinery, or perform dangerous activities today. You were given medications in the ER that can affect your ability to safely function or operate a vehicle. Rest today in a quiet, peaceful, dark environment and get a full 8-10 hrs of sleep tonight. Avoid loud noises, smoke/smoking, alcohol, bright lights, stress, or physical exertion today to minimize the chance the headache may return. Continue current medications. Ibuprofen(Motrin, Advil) may be used for fever or pain. Use 600mg every six hours as needed. Take with food. Avoid using more than 2400mg in a 24 hour period. Do not use 2400mg per day for more than three consecutive days without physician direction. Prolonged inappropriate use can lead to stomach upset or ulcers. (AND/OR) Acetaminophen(Tylenol) may be used for fever or pain. Use 1000mg every six hours as needed. Avoid using more than 3000mg in a 24 hour period. Return to the ER for passing out, worsening headache, vision problems, neck stiffness/pain, fevers, vomiting, worsening of your condition, or as needed. Follow up with your primary physician and/or a neurologist in 2-3 days for a recheck of your current condition. Problem Qualifiers Primary Impression: Migraine Migraine type: without aura Status migrainosus presence: without status migrainosus Intractability: not intractable Qualified Codes: G43.009 - Migraine without aura, not intractable, without status migrainosus
== END 2016-11-24 02:00 | disposition home or self-care (01) ==
LOC: C.EDB 01:01
DX: G43.009 Migraine without aura, not intractable, without status migrainosus (principal); Z80.9 Family history of malignant neoplasm, unspecified; Z83.3 Family history of diabetes mellitus; Z82.49 Family history of ischemic heart disease and other diseases of the circulatory system; F17.210 Nicotine dependence, cigarettes, uncomplicated; Z79.3 Long term (current) use of hormonal contraceptives; Z79.899 Other long term (current) drug therapy

== ENCOUNTER 2016-12-25 22:25 | Emergency (ER) | payer OTHER ==
[~2016-12-25] VITALS: Ht 157.5 cm; Wt 81.6 kg
[2016-12-25 22:38] VITALS: TEMP 36.7; Ht 157.5 cm; Wt 81.6 kg
[2016-12-25] MEDS ORDERED: QUET1TAB32 PO (23:55)
[2016-12-25] MEDS ORDERED: KETOROLAC TROMETHAMINE 60 MG/2 ML VIAL IM STA (23:55)
[2016-12-25] MEDS ORDERED: DiphenhydrAMINE HCL 50 MG/ML VIAL IM STA (23:55)
[2016-12-25] MEDS ORDERED: PROMETHAZINE HCL INJ 25 MG/ML 1 ML VIAL IM STA (23:55)
--- NOTE | 2016-12-25 23:57 | EMERGENCY ROOM VISIT NOTE ---
History Report prepared by Nadine: Sheri Malin Under the Supervision of: Dr. Donn Wetzel D.O. First contact with patient: 23:42 Chief Complaint: DEHYDRATION Stated Complaint: MIGRAINE - NAUSEA - VOMITTING - DEHYDRATED Nursing Triage Summary: nausea, migraine, vomitting. "feels like im dehydrated" started around 0400. took aleve around 1900 History of Present Illness The patient is a 26 year old female who presents to the Emergency Room with complaints of a persistent migraine headache that started around 0400 this morning. She rates her pain as an 8/10 in severity. She has tried taking Tylenol and Aleve, but states they have provided minimal relief. Her last dose of medication was Aleve, taken at 1900 this evening. The patient has a history of migraine headaches but reports today's headache pain is "worse than usual". She also complains of nausea and vomiting, stating "I feel like I'm dehydrated" . She states she normally takes Phenergan and Zofran for nausea, but she is currently out of both prescriptions. She reports she has not been able to sleep because of her pain. Source of History: patient Onset: 0400 this morning Position: head Symptom Intensity: 8/10 Timing: other (persistent) Modifying Factors (Relieving): tylenol, ibuprofen (Aleve) Associated Symptoms: + nausea, + vomiting, + fatigue Review of Systems See HPI for pertinent positives & negatives. A total of 10 systems reviewed and were otherwise negative. Past Medical & Surgical Medical Problems: (1) Migraine (2) Tonsillectomy (3) Vaginal delivery Family History Cancer Diabetes mellitus Hypertension Social History Smoking Status: Current Every Day Smoker Alcohol Use: none Drug Use: none Marital Status: single, in relationship Housing Status: lives with family Occupation Status: employed Current/Historical Medications Scheduled Gabapentin (Gabapentin), 800 MG PO TID Medroxyprogesterone Acetate (C (Depo-Provera Contraceptiv), 1 DOSE INJ EVERY 3 MONTHS Quetiapine Fumarate (Seroquel), 50-100 MG PO DAILY Ropinirole (Requip), 0.5 MG PO HS Scheduled PRN Albuterol Hfa (Ventolin Hfa), 2 PUFFS INH QID PRN for SOB/Wheezing Fluticasone Propionate (Flovent Hfa), 2 PUFFS INH BID PRN for Shortness of Breath Pantoprazole (Protonix), 40 MG PO DAILY PRN for HEARTBURN Rizatriptan Benzoate (Maxalt), 10 MG PO DIRECTED PRN for Headache Allergies Coded Allergies: Azithromycin (Unverified Allergy, Unknown, HIVES, 12/25/16) Macrolides (Verified Allergy, Unknown, UNKNOWN, 12/25/16) Sulfa Antibiotics (Verified Allergy, Unknown, UNKNOWN, 12/25/16) Sulfamethoxazole w/Trimethoprim (Unverified Allergy, Unknown, UKN, 12/25/16 ) Uncoded Allergies: KETALIDES (Allergy, Unknown, UNKNOWN, 08/27/13) Physical Exam Vital Signs Date Time Temp Pulse Resp B/P (MAP) Pulse Ox O2 Delivery O2 Flow Rate FiO2 12/26/16 00:40 80 18 120/77 98 12/25/16 22:38 36.7 80 20 122/77 98 Room Air Physical Exam GENERAL: Patient is awake, alert, in no acute distress, patient is resting comfortably and showing no signs of anxiety EYES: The conjunctivae are clear. The pupils are round and reactive. EARS, NOSE, MOUTH AND THROAT: The nose is without any evidence of any deformity. Mucous membranes are moist tongue is midline NECK: The neck is nontender and supple. RESPIRATORY: Normal respiratory effort is noted there is no evidence of wheezing rhonchi or rales CARDIOVASCULAR: Regular rate and rhythm noted there no murmurs rubs or gallops normal S1 normal S2 GASTROINTESTINAL: The abdomen is soft. Bowel sounds are present in all quadrants. Abdomen is nontender MUSCULOSKELETAL/EXTREMITIES: There is no evidence of gross deformity full range of motion is noted in the hips and shoulders SKIN: There is no obvious evidence of any rash. There are no petechiae, pallor or cyanosis noted. NEUROLOGIC: Patient is awake alert and oriented x3 strength is symmetric patellar reflexes are 2+ bilaterally Medical Decision & Procedures Medications Administered Medications (Trade) Dose Ordered Sig/Ya Route Start Time Stop Time Status Last Admin Dose Admin Ketorolac Tromethamine (Toradol Inj) 60 mg NOW STAT IM 12/25/16 23:55 12/25/16 23:56 DC 12/26/16 00:27 60 MG Diphenhydramine HCl (Benadryl Inj) 25 mg NOW STAT IM 12/25/16 23:55 12/25/16 23:56 DC 12/26/16 00:27 25 MG Promethazine HCl (Phenergan Inj) 25 mg NOW STAT IM 12/25/16 23:55 12/25/16 23:56 DC 12/26/16 00:27 25 MG Ondansetron HCl (ZOFRAN ODT 4MG Home Pack) 1 homepack UD ONCE PO 12/26/16 00:00 12/26/16 00:01 DC 12/26/16 00:26 1 HOMEPACK ED Course 2353: The patient was evaluated in room C8. A complete history and physical examination were performed. 2355: Phenergan 25 mg IM, Benadryl 25 mg IM, Toradol 60 mg IM. 0000: Zofran 4 mg 1 homepack PO. 0015: I reevaluated the patient. She is feeling better. I discussed her results and discharge instructions and she verbalized complete understanding and agreement. Medical Decision Prior records/ancillary studies reviewed. Triage Nursing notes reviewed. The patient's history was concerning for headache. Differential diagnosis: Etiologies such as migraine headache, meningitis, sinusitis, CO exposure, ICH, SAH, infection, tumor, headache, sinus thrombosis, arterial dissection, as well as others were entertained. The patient is a 26-year-old female who presented to the emergency department for evaluation of headache and vomiting. The patient did not have meningismus or fever. She had no focal neurologic deficit. She was treated with pain medication and she is received in the past for headache. On subsequent reevaluation she was feeling much better. She was encouraged to follow-up with her family doctor today for reevaluation but return to emergency department immediately if symptoms change worsen or the need arises. Medication Reconcilliation Current Medication List: was personally reviewed by me Blood Pressure Screening Patient's blood pressure: Normal blood pressure Blood pressure disposition: Did not require urgent referral Impression Primary Impression: Headache Scribe Attestation The scribe's documentation has been prepared under my direction and personally reviewed by me in its entirety. I confirm that the note above accurately reflects all work, treatment, procedures, and medical decision making performed by me. Departure Information Dispostion Home / Self-Care Referrals No Doctor, Assigned (PCP) Patient Instructions Headache Pain, My [facility] Additional Instructions Call your family in the morning to schedule a follow-up appointment. Drink plenty clear liquids.
[2016-12-26] MEDS ORDERED: ONDANSETRON HOME PACK 4MG OD TAB PO ONE
[2016-12-26 00:40] VITALS: BP 120/77; PULSE 80; O2SAT 98
== END 2016-12-26 00:41 | disposition home or self-care (01) ==
LOC: C.EDB 22:26 → C.EDC 12-26 00:41
DX: R51 Headache (principal); F17.200 Nicotine dependence, unspecified, uncomplicated; Z83.3 Family history of diabetes mellitus; Z82.49 Family history of ischemic heart disease and other diseases of the circulatory system

== ENCOUNTER 2017-02-05 16:28 | Emergency (ER) | payer OTHER ==
[~2017-02-05] VITALS: Ht 157.5 cm; Wt 77.5 kg
[~2017-02-05 16:28] MED LIST changes: +QUET1TAB32 PO
[2017-02-05 16:30] VITALS: BP 122/86; PULSE 107; TEMP 37; O2SAT 99; Ht 157.5 cm; Wt 77.5 kg
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
== END 2017-02-05 18:19 | disposition home or self-care (01) ==
LOC: C.EDB 16:29 → C.EDD 18:19
DX: S70.01XA Contusion of right hip, initial encounter (principal); V43.62XA Car passenger injured in collision with other type car in traffic accident, initial encounter; F17.200 Nicotine dependence, unspecified, uncomplicated; Z98.890 Other specified postprocedural states; Z79.899 Other long term (current) drug therapy; Z80.9 Family history of malignant neoplasm, unspecified; Z83.3 Family history of diabetes mellitus; Z82.49 Family history of ischemic heart disease and other diseases of the circulatory system

== ENCOUNTER 2017-03-02 01:25 | Emergency (ER) | payer OTHER ==
[2017-03-02 01:33] VITALS: TEMP 36.7; Ht 165.1 cm
[2017-03-02] MEDS ORDERED: SODIUM CHLORIDE 0.9% 1000ML 1,000 ML IV STA (01:52)
[2017-03-02 02:18] LABS: BASO % 0.2 %; BASO ABS # 0.02 K/uL (0-0.2); COMPLETE YES; EOS % 0.2 %; HEMATOCRIT 39.2 % (37-47); IG% 0.2 %; LYMPH % 14.5 %; LYMPH ABS # 1.64 K/uL (1.2-3.4); MEAN CELL VOLUME 80.8 fL (80-100); MEAN CORPUSCULAR HEMOGLOBIN 28.2 pg (25-34); MEAN CORPUSCULAR HGB CONC 34.9 g/dl (32-36); MEAN PLATELET VOLUME 10.7 fL (7.4-10.4); MONO % 6.2 %; NEUT % 78.7 %; PLATELET COUNT 254 K/uL (130-400); RED BLOOD COUNT 4.85 M/uL (4.2-5.4); WHITE BLOOD COUNT 11.29 K/uL (4.8-10.8)
[2017-03-02 02:36] LABS: ALT/SGPT 26 U/L (12-78); AST/SGOT 18 U/L (15-37); BLOOD UREA NITROGEN 5 mg/dl (7-18); BUN/CREATININE RATIO 5.3 (10-20); CALCIUM 9.3 mg/dl (8.5-10.1); CARBON DIOXIDE 32 mmol/L (21-32); CHLORIDE 96 mmol/L (98-107); CREATININE 0.95 mg/dl (0.60-1.20); GLUCOSE 130 mg/dl (70-99); POTASSIUM 2.6 mmol/L (3.5-5.1); SODIUM 135 mmol/L (136-145)
[2017-03-02 02:39] LABS: ALKALINE PHOSPHATASE 96 U/L (45-117)
[2017-03-02] MEDS ORDERED: POTASSIUM CHLORIDE 10 MEQ TABCR PO STA (02:44)
[2017-03-02] MEDS ORDERED: ONDANSETRON INJ 2 MG/ML 2 ML VIAL IV STA (02:44)
[2017-03-02] MEDS ORDERED: POTASSIUM CHLORIDE 10 MEQ / 100ML WTR IV STA (02:44)
[2017-03-02 02:51] LABS: ACETAMINOPHEN < 2 ug/ml (10-30)
[2017-03-02 03:17] LABS: BENZODIAZEPINE, URINE NEG (NEG); COCAINE,URINE NEG (NEG); PHENCYCLIDINE, URINE NEG (NEG)
[2017-03-02 06:01] VITALS: BP 109/62
[2017-03-02 06:15] VITALS: PULSE 82; O2SAT 95
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
[2017-03-04 12:33] LABS: COD UR NEGATIVE NG/ML (CUTOFF=50); HYDROCOD UR NEGATIVE NG/ML (CUTOFF=50); HYDROMOR UR NEGATIVE NG/ML (CUTOFF=50); MORPHINE UR 276 NG/ML (CUTOFF=50); NORHYDROCODONE CONF UR NEGATIVE NG/ML (CUTOFF=50); OXYMORPH UR NEGATIVE NG/ML (CUTOFF=50)
== END 2017-03-02 06:45 | disposition home or self-care (01) ==
LOC: EDBD 01:25 → C.EDA 01:26
DX: T40.1X1A Poisoning by heroin, accidental (unintentional), initial encounter (principal); E87.6 Hypokalemia; R00.0 Tachycardia, unspecified; F17.200 Nicotine dependence, unspecified, uncomplicated; Z79.899 Other long term (current) drug therapy; Z88.2 Allergy status to sulfonamides; Z88.3 Allergy status to other anti-infective agents; Z88.8 Allergy status to other drugs, medicaments and biological substances; Z80.9 Family history of malignant neoplasm, unspecified; Z83.3 Family history of diabetes mellitus; Z82.49 Family history of ischemic heart disease and other diseases of the circulatory system

== ENCOUNTER 2017-07-13 18:43 | Emergency (ER) | payer OTHER ==
[~2017-07-13] VITALS: Ht 157.5 cm; Wt 83.9 kg
[~2017-07-13 18:43] MED LIST changes: -NRN800 PO
[2017-07-13 18:54] VITALS: TEMP 37; Ht 157.5 cm; Wt 83.9 kg
[2017-07-13] MEDS ORDERED: SODIUM CHLORIDE 0.9% 1000ML 1,000 ML IV STA (20:00)
--- NOTE | 2017-07-13 20:04 | EMERGENCY ROOM VISIT NOTE ---
History Report prepared by Nadine: Hank Miller Under the Supervision of: Dr. Mohsen Hernandez M.D. First contact with patient: 19:54 Chief Complaint: FLU LIKE SX Stated Complaint: HEADACHE,CHILLS,FEVER History of Present Illness The patient is a 27 year old female who presents to the Emergency Room with complaints of a waxing and waning fever that began 7 days ago. She states that her temperature has been as high as 101.4 F. The patient has a history of asthma but denies any other medical problems. Over this time, she has been experiencing influenza-like symptoms including chest/nasal congestion, a productive cough, and a lessened appetite. She notes that she feels moderately dehydrated. She denies any sore throat, vomiting, diarrhea, or any other abnormal symptoms. She had her influenza vaccine and denies any known flu contacts. She is a current everyday smoker. Source of History: patient Onset: 7 days ago Position: other (Global) Symptom Intensity: high of 101.4 F Quality: other (Fever) Timing: waxes/wanes Associated Symptoms: + cough, No sorethroat, No vomiting, No diarrhea Note: She is experiencing chest/nasal congestion with a lessened appetite. Review of Systems See HPI for pertinent positives & negatives. A total of 10 systems reviewed and were otherwise negative. Past Medical & Surgical Medical Problems: (1) Migraine (2) Tonsillectomy (3) Vaginal delivery Family History Cancer Diabetes mellitus Hypertension Social History Smoking Status: Current Every Day Smoker Alcohol Use: none Drug Use: other Marital Status: single, in relationship Housing Status: lives with family Occupation Status: employed Current/Historical Medications Scheduled Gabapentin (Gabapentin), 800 MG PO TID Medroxyprogesterone Acetate (C (Medroxyprogesterone Aceta), 150 MG IM Q3 MONTHS Meloxicam (Meloxicam), 15 MG PO DAILY Pantoprazole (Pantoprazole Sodium), 40 MG PO DAILY Prednisone (Prednisone), 10 MG PO UNKNOWN Quetiapine Fumarate (Quetiapine Fumarate), 400 MG PO HS Ropinirole HCl (Ropinirole HCl), 1 MG PO HS Scheduled PRN Albuterol Hfa (Ventolin Hfa), 2 PUFFS INH QID PRN for SOB/Wheezing Cyclobenzaprine HCl (Cyclobenzaprine HCl), 10 MG PO BID PRN for Muscle Spasm Fluticasone Propionate (Flovent Hfa), 2 PUFFS INH BID PRN for Shortness of Breath Rizatriptan Benzoate (Rizatriptan Benzoate), 10 MG PO UD PRN for Headache Allergies Coded Allergies: Azithromycin (Verified Allergy, Unknown, HIVES, 04/06/17) Macrolides (Verified Allergy, Unknown, UNKNOWN, 04/06/17) Sulfa Antibiotics (Verified Allergy, Unknown, UNKNOWN, 04/06/17) Sulfamethoxazole w/Trimethoprim (Verified Allergy, Unknown, UKN, 04/06/17) Uncoded Allergies: KETALIDES (Allergy, Unknown, UNKNOWN, 08/27/13) Physical Exam Vital Signs Date Time Temp Pulse Resp B/P (MAP) Pulse Ox O2 Delivery O2 Flow Rate FiO2 07/13/17 21:35 97 16 114/60 100 Room Air 07/13/17 18:54 37.0 124 18 128/79 98 Room Air Physical Exam GENERAL: Patient is in no acute distress. HEENT: No acute trauma, normocephalic atraumatic, mucous membranes moist, no nasal congestion, no scleral icterus. No throat erythema or exudate. NECK: No stridor, no adenopathy, no meningismus, trachea is midline. LUNGS: Clear to auscultation bilaterally, no wheeze, no rhonchi, breath sounds equal. HEART: Tachycardic rate with a regular rhythm. No murmurs. ABDOMEN: Soft, nontender, bowel sounds positive, no hernias, no peritonitis. EXTREMITIES: No cyanosis or edema, full range of motion of all the joints without pain or difficulty, no signs for acute trauma. NEUROLOGIC: Oriented x 3, no acute motor or sensory deficits, no focal weakness. SKIN: No rash, no jaundice, no diaphoresis. Medical Decision & Procedures ER Provider Diagnostic Interpretation: Radiology results as stated below per my review and radiologist interpretation: CHEST ONE VIEW PORTABLE CLINICAL HISTORY: EVALUATE RESPIRATORY DISTRESS.DYSPNEA dyspnea COMPARISON STUDY: 09/01/2016 FINDINGS: The bones soft tissues and hemidiaphragms are normal. The cardiomediastinal silhouette is normal. The lungs are clear. The pulmonary vasculature is normal. IMPRESSION: Negative chest. The above report was generated using voice recognition software. It may contain grammatical, syntax or spelling errors. Electronically signed by: Barrett Swenson M.D. 07/13/2017 8:49 PM Dictated Date/Time: 07/13/2017 8:49 PM Laboratory Results 07/13/17 20:15 Red Blood Count 4.79, Mean Corpuscular Volume 83.9, Mean Corpuscular Hemoglobin 28.6, Mean Corpuscular Hemoglobin Concent 34.1, Mean Platelet Volume 10.1, Neutrophils (%) (Auto) 49.2, Lymphocytes (%) (Auto) 42.9, Monocytes (%) (Auto) 5.4, Eosinophils (%) (Auto) 1.6, Basophils (%) (Auto) 0.6, Neutrophils # (Auto) 3.30, Lymphocytes # (Auto) 2.88, Monocytes # (Auto) 0.36, Eosinophils # (Auto) 0.11, Basophils # (Auto) 0.04 07/13/17 20:15 Test 07/13/17 20:15 07/13/17 20:28 White Blood Count 6.71 K/uL (4.8-10.8) Red Blood Count 4.79 M/uL (4.2-5.4) Hemoglobin 13.7 g/dL (12.0-16.0) Hematocrit 40.2 % (37-47) Mean Corpuscular Volume 83.9 fL (80-100) Mean Corpuscular Hemoglobin 28.6 pg (25-34) Mean Corpuscular Hemoglobin Concent 34.1 g/dl (32-36) Platelet Count 267 K/uL (130-400) Mean Platelet Volume 10.1 fL (7.4-10.4) Neutrophils (%) (Auto) 49.2 % Lymphocytes (%) (Auto) 42.9 % Monocytes (%) (Auto) 5.4 % Eosinophils (%) (Auto) 1.6 % Basophils (%) (Auto) 0.6 % Neutrophils # (Auto) 3.30 K/uL (1.4-6.5) Lymphocytes # (Auto) 2.88 K/uL (1.2-3.4) Monocytes # (Auto) 0.36 K/uL (0.11-0.59) Eosinophils # (Auto) 0.11 K/uL (0-0.5) Basophils # (Auto) 0.04 K/uL (0-0.2) RDW Standard Deviation 42.4 fL (36.4-46.3) RDW Coefficient of Variation 13.8 % (11.5-14.5) Immature Granulocyte % (Auto) 0.3 % Immature Granulocyte # (Auto) 0.02 K/uL (0.00-0.02) Anion Gap 7.0 mmol/L (3-11) Est Creatinine Clear Calc Drug Dose 118.9 ml/min Estimated GFR () 134.0 Estimated GFR (Non- 115.6 BUN/Creatinine Ratio 10.2 (10-20) Calcium Level 9.1 mg/dl (8.5-10.1) Influenza Type A Antigen Neg for Influ A (NEG) Influenza Type B Antigen Neg for Influ B (NEG) Laboratory results reviewed by me. Medications Administered Medications (Trade) Dose Ordered Sig/Ya Route Start Time Stop Time Status Last Admin Dose Admin Sodium Chloride 1,000 ml @ 999 mls/hr Q1H1M STAT IV 07/13/17 20:00 07/13/17 21:00 DC 07/13/17 20:31 999 MLS/HR Diphenhydramine HCl (Benadryl Inj) 50 mg NOW STAT IV 07/13/17 21:51 07/13/17 21:52 DC 07/13/17 21:57 50 MG ECG Indication: tachycardia Rate (beats per minute): 94 Rhythm: sinus rhythm Findings: other (Slightly shortened [place] interval, no ST elevation or PVC) Change: Patient's electrocardiogram interpreted by me. ED Course 1953: The patient was evaluated in room B5. A complete history and physical exam was performed. 1999: Ordered Sodium Chloride 1000 ml @ 999 mls/hr IV 2149: The patient asked for a dose of Benadryl so she can sleep tonight. She does have a ride home. 2150: Ordered Benadryl Inj 50 mg IV 2154: Reevaluated the patient. Discussed results and discharge instructions: She verbalized understanding and agreement. The patient is ready for discharge. Medical Decision Differential diagnosis includes but is not limited to influenza, influenza-like illness, pneumonia, bronchitis, dehydration, and electrolyte imbalance. There is no leukocytosis or concerning anemia. No significant electrolyte abnormality or kidney failure. Influenza testing is negative. Chest film does not show pneumonia or CHF. EKG shows a sinus tachycardia, no acute ischemia. The patient received IV saline. Her heart rate has improved, she is resting comfortably. I suspect she does have a flulike illness, she is stable for discharge. She did request a dose of IV Benadryl to help her sleep this evening , this was given. She has agreed to return for any worsening symptoms. Rest, hydration, over-the- counter pain meds were encouraged. Medication Reconcilliation Current Medication List: was personally reviewed by me Blood Pressure Screening Patient's blood pressure: Normal blood pressure Blood pressure disposition: Did not require urgent referral Impression Primary Impression: Flu-like symptoms Additional Impression: Dehydration Scribe Attestation The scribe's documentation has been prepared under my direction and personally reviewed by me in its entirety. I confirm that the note above accurately reflects all work, treatment, procedures, and medical decision making performed by me. Departure Information Dispostion Home / Self-Care Referrals Akhil Oneil M.D. (PCP) Forms HOME CARE DOCUMENTATION FORM, IMPORTANT VISIT INFORMATION Patient Instructions My [facility] Additional Instructions rest fluids return if worsening flu testing and chest xray were all ok today Problem Qualifiers
[2017-07-13 20:42] LABS: BASO % 0.6 %; BASO ABS # 0.04 K/uL (0-0.2); EOS % 1.6 %; EOS ABS # 0.11 K/uL (0-0.5); HEMATOCRIT 40.2 % (37-47); HEMOGLOBIN 13.7 g/dL (12.0-16.0); IG# 0.02 K/uL (0.00-0.02); LYMPH % 42.9 %; LYMPH ABS # 2.88 K/uL (1.2-3.4); MEAN CELL VOLUME 83.9 fL (80-100); MEAN CORPUSCULAR HEMOGLOBIN 28.6 pg (25-34); MEAN CORPUSCULAR HGB CONC 34.1 g/dl (32-36); MEAN PLATELET VOLUME 10.1 fL (7.4-10.4); MONO % 5.4 %; MONO ABS # 0.36 K/uL (0.11-0.59); NEUT % 49.2 %; PLATELET COUNT 267 K/uL (130-400); RED CELL DISTRIBUTION WIDTH CV 13.8 % (11.5-14.5); RED CELL DISTRIBUTION WIDTH SD 42.4 fL (36.4-46.3); WHITE BLOOD COUNT 6.71 K/uL (4.8-10.8)
--- NOTE | 2017-07-13 20:51 | DIAGNOSTIC IMAGING REPORT ---
CHEST ONE VIEW PORTABLE CLINICAL HISTORY: EVALUATE RESPIRATORY DISTRESS.DYSPNEA dyspnea COMPARISON STUDY: 09/01/2016 FINDINGS: The bones soft tissues and hemidiaphragms are normal. The cardiomediastinal silhouette is normal. The lungs are clear. The pulmonary vasculature is normal. IMPRESSION: Negative chest. The above report was generated using voice recognition software. It may contain grammatical, syntax or spelling errors. Electronically signed by: Barrett Swenson M.D. 07/13/2017 8:49 PM Dictated Date/Time: 07/13/2017 8:49 PM
[2017-07-13] MEDS ORDERED: QUET1TAB20 PO (20:53)
[2017-07-13] MEDS ORDERED: RIZA1TAB11 PO (20:53)
[2017-07-13] MEDS ORDERED: FLX10 PO (20:53)
[2017-07-13] MEDS ORDERED: MELO15TA4 PO (20:53)
[2017-07-13] MEDS ORDERED: MEDR150I19 IM (20:53)
[2017-07-13] MEDS ORDERED: PANT40TA2 PO (20:53)
[2017-07-13] MEDS ORDERED: ROPI1TAB29 PO (20:53)
[2017-07-13 21:01] LABS: CALCIUM 9.1 mg/dl (8.5-10.1); CREATININE 0.72 mg/dl (0.60-1.20); POTASSIUM 3.3 mmol/L (3.5-5.1)
[2017-07-13] MEDS ORDERED: PRED10TA PO (21:05)
[2017-07-13 21:14] LABS: INFLUENZA B ANTIGEN Neg for Influ B (NEG)
[2017-07-13 21:35] VITALS: BP 114/60; PULSE 97; O2SAT 100
[2017-07-13] MEDS ORDERED: DiphenhydrAMINE HCL 50 MG/ML VIAL IV STA (21:51)
[2017-07-13] MEDS ORDERED: NRN800 PO (22:52)
== END 2017-07-13 22:23 | disposition home or self-care (01) ==
LOC: C.EDB 18:47
DX: R69 Illness, unspecified (principal); E86.0 Dehydration; Z83.3 Family history of diabetes mellitus; Z82.49 Family history of ischemic heart disease and other diseases of the circulatory system; F17.200 Nicotine dependence, unspecified, uncomplicated

== ENCOUNTER 2017-07-19 18:26 | Emergency (ER) | payer OTHER ==
[~2017-07-19] VITALS: Ht 157.5 cm; Wt 83.1 kg
[2017-07-19 19:02] VITALS: TEMP 37.4; Ht 157.5 cm; Wt 83.1 kg
[2017-07-19] MEDS ORDERED: IBUPROFEN 600 MG TAB PO STA (19:12)
--- NOTE | 2017-07-19 20:23 | DIAGNOSTIC IMAGING REPORT ---
RIGHT UPPER EXTREMITY VENOUS DOPPLER HISTORY: R arm pain s/p IV COMPARISON STUDY: None. FINDINGS: The right internal jugular vein is patent. There is normal flow within the right subclavian vein. There is normal flow and compressibility within the right axillary, basilic, brachial, radial, and ulnar veins. Occlusive thrombus seen within the right cephalic vein at the mid to distal upper arm. IMPRESSION: No DVT within the right upper extremity. Thrombosed right cephalic vein at the mid to distal upper arm. Electronically signed by: Booker Fabian M.D. 07/19/2017 8:22 PM Dictated Date/Time: 07/19/2017 8:21 PM
[2017-07-19] MEDS ORDERED: RIVAROXABAN 10 MG TAB PO STA (21:33)
[2017-07-19] MEDS ORDERED: ONDANSETRON 4MG OD TAB PO STA (21:33)
[2017-07-19] MEDS ORDERED: ONDANSETRON HOME PACK 4MG OD TAB PO STA (21:33)
[2017-07-19] MEDS ORDERED: OXYCODONE HCL IR 5 MG TAB (IMMEDIATE RELEASE) PO STA (21:52)
[2017-07-19] MEDS ORDERED: XRL10 PO (21:54)
--- NOTE | 2017-07-19 21:56 | EMERGENCY ROOM VISIT NOTE ---
History First contact with patient: 19:08 Chief Complaint: ARM PAIN Stated Complaint: RT SWELLING, HOT, PAINFUL History of Present Illness The patient is a 27 year old female who presents to the Emergency Room via private vehicle accompanied by grandmother with complaints of "right swelling arm, hot, painful". The patient states that she was seen here 6 days ago and had an IV placed in her right before meals. She states that she was doing well up until 3 days ago when she developed swelling, and redness at the site. She states that she also feels slightly nauseous. She rates the overall pain currently as a 9/10. She is right-handed. There has been no fever. Review of Systems A complete 6-point Review of Systems was discussed with the patient, with pertinent positives and negatives listed in the History of Present Illness. All remaining Review of Systems questions can be considered negative unless otherwise specified. Past Medical/Surgical History Medical Problems: (1) Migraine (2) Tonsillectomy (3) Vaginal delivery Family History Cancer Diabetes mellitus Hypertension Social History Smoking Status: Current Every Day Smoker Alcohol Use: none Drug Use: other Marital Status: single, in relationship Housing Status: lives with family Occupation Status: employed Current/Historical Medications Scheduled Gabapentin (Gabapentin), 800 MG PO TID Medroxyprogesterone Acetate (C (Medroxyprogesterone Aceta), 150 MG IM Q3 MONTHS Meloxicam (Meloxicam), 15 MG PO DAILY Pantoprazole (Pantoprazole Sodium), 40 MG PO DAILY Prednisone (Prednisone), 10 MG PO UNKNOWN Quetiapine Fumarate (Quetiapine Fumarate), 400 MG PO HS Rivaroxaban (Xarelto), 1 TAB PO DAILY Ropinirole HCl (Ropinirole HCl), 1 MG PO HS Scheduled PRN Albuterol Hfa (Ventolin Hfa), 2 PUFFS INH QID PRN for SOB/Wheezing Cyclobenzaprine HCl (Cyclobenzaprine HCl), 10 MG PO BID PRN for Muscle Spasm Fluticasone Propionate (Flovent Hfa), 2 PUFFS INH BID PRN for Shortness of Breath Rizatriptan Benzoate (Rizatriptan Benzoate), 10 MG PO UD PRN for Headache Physical Exam Vital Signs Date Time Temp Pulse Resp B/P (MAP) Pulse Ox O2 Delivery O2 Flow Rate FiO2 07/19/17 22:11 84 18 142/77 99 07/19/17 20:30 91 18 133/77 99 Room Air 07/19/17 19:02 37.4 119 20 122/83 100 Room Air Physical Exam VITAL SIGNS - Vital signs and nursing notes were reviewed. Stable. GENERAL -27-year-old female appearing her stated age who is in no acute distress. Communicates well with provider and answers questions appropriately. SKIN - over the right antecubital area there is a well-healed venipuncture site , just proximal to that on the ventral aspect there is a slightly erythematous region that is slightly enlarged. EXTREMITIES - No clubbing or peripheral cyanosis. No pretibial edema present. Mild swelling of the distal right bicipital region. Full range of motion noted. Tenderness noted to this region. Medical Decision & Procedures ER Provider Diagnostic Interpretation: RIGHT UPPER EXTREMITY VENOUS DOPPLER HISTORY: R arm pain s/p IV COMPARISON STUDY: None. FINDINGS: The right internal jugular vein is patent. There is normal flow within the right subclavian vein. There is normal flow and compressibility within the right axillary, basilic, brachial, radial, and ulnar veins. Occlusive thrombus seen within the right cephalic vein at the mid to distal upper arm. IMPRESSION: No DVT within the right upper extremity. Thrombosed right cephalic vein at the mid to distal upper arm. Electronically signed by: Booker Fabian M.D. 07/19/2017 8:22 PM Dictated Date/Time: 07/19/2017 8:21 PM Medications Administered Medications (Trade) Dose Ordered Sig/Ya Route Start Time Stop Time Status Last Admin Dose Admin Ibuprofen (Motrin Tab) 600 mg NOW STAT PO 07/19/17 19:12 07/19/17 19:16 DC 07/19/17 19:21 600 MG Rivaroxaban (Xarelto Tab) 10 mg DAILY STAT PO 07/19/17 21:33 07/19/17 21:35 DC 07/19/17 21:57 10 MG Ondansetron HCl (ZOFRAN ODT 4MG Home Pack) 1 homepack UD STAT PO 07/19/17 21:33 07/19/17 21:35 DC 07/19/17 21:58 1 HOMEPACK Ondansetron HCl (Zofran Odt) 4 mg NOW STAT PO 07/19/17 21:33 07/19/17 21:35 DC 07/19/17 21:57 4 MG Oxycodone HCl (Roxicodone Immediate Rel Tab) 5 mg NOW STAT PO 07/19/17 21:52 07/19/17 21:53 DC 07/19/17 21:57 5 MG Medical Decision Patient was seen and evaluated as above. After obtaining a thorough history and physical examination the above work up was performed. Ultrasound was obtained and reveals a superficial thrombus phlebitis. No evidence of infection on my exam. She was given ibuprofen for pain. I did discuss the case with the attending physician and subsequently Dr. Acosta, anticoagulation specialist. We discussed essentially two options where the patient could utilize either warm compresses and NSAIDs, or prophylactic doses Xarelto being 10 mg daily 6 weeks (45 days). pt. chose the xarelto. Thorough discussion was had regarding the medication. She is also use warm compresses and follow with her family doctor. I will give her the first 30 day supply. She is to follow with her family doctor for the remainder of the prescription. Prior to departure, the patient did note that her pain was quite severe and her grandmother called me to bedside. Although the patient is on a narcotic treatment list here secondary to previous incident, given the patient's presentation, positive finding on ultrasound, and given that I cannot give her Toradol as already given her ibuprofen and I will give her a one-time tablet of oxycodone for her pain. No scripts. Her grandmother was driving and this was verified. The patient was educated upon management, had questions answered prior to discharge, and was discharged home in good condition. In the evaluation and treatment of this patient the following differential diagnoses were entertained: DVT, superficial, phlebitis, cellulitis, among others. on 07/20/47 at 11:26 AM i called the patient to clarify the duration of Xarelto. It will be 6 weeks and not 6 months as originally discussed. She verbalized understanding and was actually on the phone with her family doctor at the time. She noted she could not obtain the script until Sunday and I informed her that I could send the script to another pharmacy but she declined. Impression Primary Impression: Arm pain, right Additional Impression: Cephalic vein thrombosis Departure Information Dispostion Home / Self-Care Condition GOOD Prescriptions Rivaroxaban (Xarelto) 10 Mg Tab 1 TAB PO DAILY for 30 Days, #30 TAB 1 Refill Prov: Garrett Scott PA-C 07/19/17 Referrals Akhil Oneil M.D. (PCP) Darcy Acosta M.D., PHD Patient Instructions My [facility] Additional Instructions You have been treated in the Emergency Department for R arm pain. You have received pain medicine in the emergency department which impairs your ability to operate a vehicle. It is illegal for you to drive after receiving these medicines. Xarelto 1 tablet every day for 6 weeks for your clot. This is the prophylactic dose and will help prevent enlarging clot. (NO NSAIDS WITH THIS (meloxicam, aleve, ibuprofen, aspirin, etc) For pain control, you can use the following [id number] medicines: - Regular strength (325mg/tab) Tylenol (acetaminophen) 2 tabs every 4-6 hours as needed. Do not exceed 12 tablets in a 24 hour period. Avoid taking more than 3 grams (3000 mg) of Tylenol per day. This includes any other sources of acetaminophen you may take on a regular basis. Warm compresses and elevated arm. Follow up with family doctor as the xarelto is for 6 months, They will need to write for future prescriptions Return to the Emergency Department if your current symptoms worsen despite treatment course outlined above, or if you develop any of the following symptoms : intractable pain despite aforementioned treatment course or new onset of numbness or tingling of the fingers. Problem Qualifiers
[2017-07-19 22:11] VITALS: BP 142/77; PULSE 84; O2SAT 99
[2017-07-23] MEDS ORDERED: VNTHFA/IN INH (01:02)
[2017-07-23] MEDS ORDERED: FLVHFA110 INH (01:54)
== END 2017-07-19 22:12 | disposition home or self-care (01) ==
LOC: C.EDB 18:27 → C.EDD 22:12
DX: M79.601 Pain in right arm (principal); I82.611 Acute embolism and thrombosis of superficial veins of right upper extremity; G43.909 Migraine, unspecified, not intractable, without status migrainosus; Z80.9 Family history of malignant neoplasm, unspecified; Z83.3 Family history of diabetes mellitus; Z82.49 Family history of ischemic heart disease and other diseases of the circulatory system; F17.210 Nicotine dependence, cigarettes, uncomplicated; Z79.52 Long term (current) use of systemic steroids; Z79.899 Other long term (current) drug therapy

== ENCOUNTER 2017-07-23 13:27 | Inpatient (IN) | payer OTHER ==
[~2017-07-23] VITALS: Ht 157.5 cm; Wt 83.0 kg
[~2017-07-23 13:27] MED LIST changes: -MEDR150I INJ; -PANT40TA PO; -QUET1TAB32 PO; -RIZA10TA18 PO; -ROPI0.5T15 PO; +XRL10 PO
[2017-07-23] MEDS ORDERED: SODIUM CHLORIDE 0.9% 1000ML 2,000 ML IV STA (14:20)
[2017-07-23] MEDS ORDERED: ACETAMINOPHEN 500 MG TAB PO STA (14:20)
--- NOTE | 2017-07-23 15:11 | EMERGENCY ROOM VISIT NOTE ---
History Report prepared by Nadine: Denice Reese Under the Supervision of: Dr. Vin Mcmanus M.D. First contact with patient: 14:06 Chief Complaint: WOUND INFECTION Stated Complaint: BLOOD CLOT Nursing Triage Summary: pt to the ED with c/o abcess/blood clot on right FA and went to PMD and they told her that it is a cyst and a blood clot was sent in to be admitted History of Present Illness The patient is a 27 year old female who presents to the Emergency Room with complaints of a possible persistent blood clot, noting she first noticed swelling in her right arm about one week ago. She reports that her right arm today is about 3 times bigger than it normally is. The patient states that she has difficulty straightening out her arm without pain. She notes that she has headaches, nausea, chills, and some dizziness. The patient was seen in the Emergency Department recently, who suggested she had a possible blood clot or cyst. She notes that she was given Xarelto during her visit, noting she has not taken it since. She followed up with her primary care physician, who suggested she come to the Emergency Department for further evaluation for a possible infection. Source of History: patient Onset: about one week ago Position: arm (right) Symptom Intensity: right arm is 3 times bigger Quality: other (possible blood clot or cyst) Timing: other (persistent) Modifying Factors (Worsening): other (straightening out arm ) Associated Symptoms: + chills, + headache, + nausea Note: Associated symptoms include: some dizziness. Review of Systems See HPI for pertinent positives and negatives. A total of ten systems were reviewed and were otherwise negative. Past Medical & Surgical Medical Problems: (1) Migraine (2) Sepsis (3) Tonsillectomy (4) Vaginal delivery Family History Cancer Diabetes mellitus Hypertension Social History Smoking Status: Current Every Day Smoker Alcohol Use: none Drug Use: other Marital Status: single, in relationship Housing Status: lives with family Occupation Status: employed Current/Historical Medications Scheduled Gabapentin (Gabapentin), 800 MG PO TID Medroxyprogesterone Acetate (C (Medroxyprogesterone Aceta), 150 MG IM Q3 MONTHS Meloxicam (Meloxicam), 15 MG PO DAILY Pantoprazole (Pantoprazole Sodium), 40 MG PO DAILY Prednisone (Prednisone), 10 MG PO UNKNOWN Quetiapine Fumarate (Quetiapine Fumarate), 400 MG PO HS Rivaroxaban (Xarelto), 1 TAB PO DAILY Ropinirole HCl (Ropinirole HCl), 1 MG PO HS Scheduled PRN Albuterol Hfa (Ventolin Hfa), 2 PUFFS INH QID PRN for SOB/Wheezing Cyclobenzaprine HCl (Cyclobenzaprine HCl), 10 MG PO BID PRN for Muscle Spasm Fluticasone Propionate (Flovent Hfa), 2 PUFFS INH BID PRN for Shortness of Breath Rizatriptan Benzoate (Rizatriptan Benzoate), 10 MG PO UD PRN for Headache Allergies Coded Allergies: Azithromycin (Verified Allergy, Unknown, HIVES, 07/23/17) Macrolides (Verified Allergy, Unknown, UNKNOWN, 07/23/17) Sulfa Antibiotics (Verified Allergy, Unknown, UNKNOWN, 07/23/17) Sulfamethoxazole w/Trimethoprim (Verified Allergy, Unknown, UKN, 07/23/17) Uncoded Allergies: KETALIDES (Allergy, Unknown, UNKNOWN, 08/27/13) Physical Exam Vital Signs Date Time Temp Pulse Resp B/P (MAP) Pulse Ox O2 Delivery O2 Flow Rate FiO2 07/23/17 23:05 101 16 109/58 95 07/23/17 22:36 101 16 109/58 95 Room Air 07/23/17 21:40 117 16 119/72 95 Room Air 07/23/17 19:03 113 16 112/73 100 Room Air 07/23/17 17:35 112 15 103/72 100 Room Air 07/23/17 15:37 98 Room Air 07/23/17 13:31 36.7 133 16 122/85 98 Physical Exam GENERAL: Awake, alert, uncomfortable-appearing but in no distress HENT: Dry mucous membranes. Normocephalic, atraumatic. Oropharynx unremarkable. EYES: Normal conjunctiva. Sclera non-icteric. NECK: Supple. No nuchal rigidity. FROM. No JVD. RESPIRATORY: Clear to auscultation. CARDIAC: Regular rate, normal rhythm. Extremities warm and well perfused. Pulses equal. ABDOMEN: Soft, non-distended. No tenderness to palpation. No rebound or guarding. No masses. RECTAL: Deferred. MUSCULOSKELETAL: Chest examination reveals no tenderness. The back is symmetrical on inspection without obvious abnormality. There is no CVA tenderness to palpation. No joint edema. LOWER EXTREMITIES: Calves are equal size bilaterally and non-tender. No edema. No discoloration. NEURO: Distal PMS intact. Normal sensorium. No sensory or motor deficits noted. SKIN: 7 by 3 cm area of swelling, induration, fluctuance, erythema, and warmth in just superior to right AC. Medical Decision & Procedures ER Provider Diagnostic Interpretation: Radiology results as stated below per my review and radiologist interpretation: SINGLE VIEW CHEST CLINICAL HISTORY: Fever. Sepsis. FINDINGS: An AP, portable, upright chest radiograph is compared to study dated 07/13/2017. The examination is degraded by portable technique and patient rotation. The cardiomediastinal silhouette is unremarkable. The lungs and pleural spaces are clear. No pneumothorax is seen. The bony thorax is grossly intact. IMPRESSION: No active disease in the chest. Electronically signed by: Mohsen Light M.D. 07/23/2017 3:28 PM Dictated Date/Time: 07/23/2017 3:28 PM R VENOUS DOPPLER UPR EXT UNIL HISTORY: Pain. Edema. eval for interval evolution of DVT COMPARISON STUDY: 07/19/2017 FINDINGS: Unchanged exam. Thrombus seen within the right cephalic vein in a distribution unchanged from the prior study. All major deep venous structures are compressible with vascular flow unremarkable. IMPRESSION: No significant change from the prior study. Superficial thrombophlebitis of the right cephalic vein unchanged in distribution from the prior study. Study is negative for deep venous thrombosis. The above report was generated using voice recognition software. It may contain grammatical, syntax or spelling errors. Electronically signed by: Barrett Swenson M.D. 07/23/2017 5:21 PM Dictated Date/Time: 07/23/2017 5:19 PM R EXTREMITY NONVASCULAR LIMITED CLINICAL HISTORY: Right antecubital fossa pain and swelling., eval for abscess COMPARISON STUDY: None. FINDINGS: Within the subcutaneous soft tissues of the right antecubital fossa there is a complex fluid collection measuring 4.7 x 2.7 x 3.1 cm. There is surrounding increased vascularity and increased echogenicity within the fat. IMPRESSION: A 4.7 x 3.1 x 2.7 cm complex fluid collection within the subcutaneous soft tissues of the right antecubital fossa. This likely represents an abscess or hematoma. Clinical correlation recommended. Electronically signed by: Booker Fabian M.D. 07/23/2017 5:21 PM Dictated Date/Time: 07/23/2017 5:19 PM RIGHT HUMERUS 2 VIEWS HISTORY: right AC abscess r/o foreign body COMPARISON: None. FINDINGS: There is no fracture or dislocation. Soft tissue swelling at the elbow. No soft tissue gas. No radiopaque foreign bodies. IMPRESSION: Soft tissue swelling at the elbow. No radiopaque foreign bodies. Electronically signed by: Booker Fabian M.D. 07/23/2017 6:11 PM Dictated Date/Time: 07/23/2017 6:08 PM Laboratory Results 07/23/17 14:48 Red Blood Count 4.69, Mean Corpuscular Volume 83.4, Mean Corpuscular Hemoglobin 28.8, Mean Corpuscular Hemoglobin Concent 34.5, Mean Platelet Volume 10.2, Neutrophils (%) (Auto) 74.0, Lymphocytes (%) (Auto) 17.0, Monocytes (%) (Auto) 7.3, Eosinophils (%) (Auto) 1.0, Basophils (%) (Auto) 0.3, Neutrophils # (Auto) 10.25, Lymphocytes # (Auto) 2.36, Monocytes # (Auto) 1.01, Eosinophils # (Auto) 0.14, Basophils # (Auto) 0.04 07/23/17 14:48 Test 07/23/17 14:48 07/23/17 18:30 07/23/17 21:18 White Blood Count 13.85 K/uL (4.8-10.8) Red Blood Count 4.69 M/uL (4.2-5.4) Hemoglobin 13.5 g/dL (12.0-16.0) Hematocrit 39.1 % (37-47) Mean Corpuscular Volume 83.4 fL (80-100) Mean Corpuscular Hemoglobin 28.8 pg (25-34) Mean Corpuscular Hemoglobin Concent 34.5 g/dl (32-36) Platelet Count 314 K/uL (130-400) Mean Platelet Volume 10.2 fL (7.4-10.4) Neutrophils (%) (Auto) 74.0 % Lymphocytes (%) (Auto) 17.0 % Monocytes (%) (Auto) 7.3 % Eosinophils (%) (Auto) 1.0 % Basophils (%) (Auto) 0.3 % Neutrophils # (Auto) 10.25 K/uL (1.4-6.5) Lymphocytes # (Auto) 2.36 K/uL (1.2-3.4) Monocytes # (Auto) 1.01 K/uL (0.11-0.59) Eosinophils # (Auto) 0.14 K/uL (0-0.5) Basophils # (Auto) 0.04 K/uL (0-0.2) RDW Standard Deviation 40.7 fL (36.4-46.3) RDW Coefficient of Variation 13.6 % (11.5-14.5) Immature Granulocyte % (Auto) 0.4 % Immature Granulocyte # (Auto) 0.05 K/uL (0.00-0.02) Erythrocyte Sedimentation Rate 34 mm/hr (0-21) Anion Gap 11.0 mmol/L (3-11) Est Creatinine Clear Calc Drug Dose 119.9 ml/min Estimated GFR () 136.2 Estimated GFR (Non- 117.6 BUN/Creatinine Ratio 8.6 (10-20) Calcium Level 9.4 mg/dl (8.5-10.1) Magnesium Level 2.1 mg/dl (1.8-2.4) Total Bilirubin 0.6 mg/dl (0.2-1) Direct Bilirubin 0.2 mg/dl (0-0.2) Aspartate Amino Transf (AST/SGOT) 42 U/L (15-37) Alanine Aminotransferase (ALT/SGPT) 39 U/L (12-78) Alkaline Phosphatase 115 U/L (45-117) C-Reactive Protein 13.00 mg/dl (0-0.29) Total Protein 7.9 gm/dl (6.4-8.2) Albumin 3.8 gm/dl (3.4-5.0) Lipase 82 U/L (73-393) Procalcitonin 0.89 ng/ml (0-0.5) Thyroid Stimulating Hormone (TSH) 1.540 uIu/ml (0.300-4.500) Urine Color YELLOW Urine Appearance CLEAR (CLEAR) Urine pH 6.0 (4.5-7.5) Urine Specific [place] 1.009 (1.000-1.030) Urine Protein NEG (NEG) Urine Glucose (UA) NEG (NEG) Urine Ketones NEG (NEG) Urine Occult Blood NEG (NEG) Urine Nitrite NEG (NEG) Urine Bilirubin NEG (NEG) Urine Urobilinogen NEG (NEG) Urine Leukocyte Esterase NEG (NEG) Urine WBC (Auto) 1-5 /hpf (0-5) Urine RBC (Auto) 0-4 /hpf (0-4) Urine Hyaline Casts (Auto) 1-5 /lpf (0-5) Urine Epithelial Cells (Auto) >30 /lpf (0-5) Urine Bacteria (Auto) NEG (NEG) Urine Test NEG (NEG) Urine Opiates Screen POS (NEG) Urine Methadone, Qualitative NEG (NEG) Urine Barbiturates NEG (NEG) Urine Phencyclidine (PCP) Level NEG (NEG) Ur Amphetamine/Methamphetamine NEG (NEG) MDMA (Ecstasy) Screen NEG (NEG) Urine Benzodiazepines Screen NEG (NEG) Urine Cocaine Metabolite NEG (NEG) Urine Marijuana (THC) NEG (NEG) Lactic Acid Level 1.6 mmol/L (0.4-2.0) Laboratory results reviewed by me Medications Administered Medications (Trade) Dose Ordered Sig/Ya Route Start Time Stop Time Status Last Admin Dose Admin Sodium Chloride 2,000 ml @ 999 mls/hr Q2H1M STAT IV 07/23/17 14:20 07/23/17 16:20 DC 07/23/17 15:39 999 MLS/HR Acetaminophen (Tylenol Tab) 1,000 mg NOW STAT PO 07/23/17 14:20 07/23/17 14:25 DC 07/23/17 15:32 1,000 MG Lidocaine HCl (Buffered Lidocaine 1% Inj) 20 ml ONE ONCE INFIL 07/23/17 18:00 07/23/17 18:01 DC 07/23/17 19:02 20 ML Sodium Chloride 1,000 ml @ 999 mls/hr Q1H1M STAT IV 07/23/17 19:15 07/23/17 20:15 DC 07/23/17 20:18 999 MLS/HR Lorazepam (Ativan Tab) 1 mg STK-MED ONCE .ROUTE 07/23/17 20:28 07/23/17 20:29 DC 07/23/17 20:29 1 MG Acetaminophen 100 ml @ 400 mls/hr NOW STAT IV 07/23/17 20:56 07/23/17 21:10 DC 07/23/17 21:21 400 MLS/HR Vancomycin HCl 1600 mg/Sodium Chloride 532 ml @ 200 mls/hr ONE STAT IV 07/23/17 20:56 07/23/17 23:35 07/23/17 22:35 200 MLS/HR Piperacillin Sod/ Tazobactam Sod (Zosyn Iv) 4.5 gm NOW STAT IV 07/23/17 20:56 07/23/17 21:01 DC 07/23/17 21:43 4.5 GM Potassium Chloride (Klor-Con M10) 40 meq NOW STAT PO 07/23/17 20:56 07/23/17 21:01 DC 07/23/17 21:33 40 MEQ Procedure Incision & Drainage Indication: Abscess. Location: right AC Verbal consent was obtained after the risks and benefits were explained, including but not limited to bleeding, scarring, infection, pain, and bone/joint /nerve damage. At this time, the risks of the procedure are less than the risks of NOT performing the procedure. A time out was taken and the correct patient and site identified. The skin was prepped with betadine and a sterile field set. The wound was anesthetized with 7 ml of 1% lidocaine without epinephrine. The abscess cavity was entered with a number 11 blade and purulent material expressed. Copious irrigation was performed using normal saline. Loculations were cleared when possible and wound was explored for foreign bodies and none found. Debridement was not performed. Packing placed and a sterile dressing applied. Detailed wound care instructions and signs and symptoms of worsening infection reviewed with the patient. No complications and the patient tolerated the procedure well. ECG Per My Interpretation Indication: other (blood clot) Rate (beats per minute): 112 Rhythm: sinus tachycardia Findings: no acute ischemic change, other (normal axis) ED Course 140: The patient was evaluated in room B8. A complete history and physical exam was performed. 1921: I reevaluated the patient to check if she had a hematoma or abscess. Bedside ultrasound showed purulent fluid collection with no color Doppler and not likely to be vasculature. 2010: I discussed the patient with Tre Merrill, he will evaluate the patient for further treatment. 2011: I reevaluated the patient and discussed test findings and the treatment plan. The patient verbalized complete understanding and agreement of the treatment plan. Medical Decision I reviewed the patient's past medical history, medications, and the nursing notes as described above. The patient's presentation and history were concerning for DVT, Superficial thrombophlebitis, abscess, cellulitis, sepsis. The patient is a 27-year-old woman with a past medical history of IV drug abuse who presents to the emergency department with worsening right arm pain swelling and redness with feverishness and chills at home in the setting of being seen in the ED several days ago for the same and found to have a superficial thrombus of her cephalic vein and was placed on Xarelto however when seen by her PCP today was referred to the ED for concern of superimposed infection or abscess per hpi. Arrival the patient is uncomfortable but no acute distress, afebrile heart rate in the 130s but vital signs otherwise stable. On exam she has a 7 x 3 cm area of induration, fluctuance, erythema, warmth with mild tenderness. Distal PMS intact. Repeat duplex of the right upper extremity demonstrates unchanged superficial thrombophlebitis of the cephalic vein. Dedicated soft tissue ultrasound of the patient's area of fluctuance concerning for abscess versus hematoma. WBC 13 and lactate 2.2. ESR 34, CRP 13. CXR negative for PNA. Plain film of humerus negative for radiopaque FB. I&D performed per procedure note with extensive purulent discharge. Of note, I d/w the patient the option of narcotics to help with the patient's pain during the procedure but we agree to hold off given her recent discharge for rehab. However , was given ativan for anxiolysis during the procedure. While the patient's abscess was explored and loculations were broken up as best as possible, inpatient surgical consultation may be reasonable to assess for possible need for additional I&D (possibly under sedation). Cx sent. Patient written for broad spectrum ABX given IVDA hx and possibility of sepsis. HR improved to 100s with IVF. Case was discussed with Tre Alejandra hospitalist, who will admit the patient for further management. Medication Reconcilliation Current Medication List: was personally reviewed by me Blood Pressure Screening Patient's blood pressure: Normal blood pressure Blood pressure disposition: Did not require urgent referral Consults Time Called: 2010 Consulting Physician: Tre Merrill Returned Call: 2010 I discussed the patient with Tre Merrill, he will evaluate the patient for further treatment. Impression Primary Impression: Superficial thrombophlebitis Additional Impressions: Abscess Cellulitis Critical Care I have personally spent greater than 35 minutes of critical care time in the direct management of this patient. This includes bedside care, interpretation of diagnostic studies, and testing, discussion with consultants, patient, and family members, and other required patient management activities. This 35 minutes is in excess of all separately billable procedures. Scribe Attestation The scribe's documentation has been prepared under my direction and personally reviewed by me in its entirety. I confirm that the note above accurately reflects all work, treatment, procedures, and medical decision making performed by me. Departure Information Dispostion Being Evaluated By Hospitalist Referrals Akhil Oneil M.D. (PCP) Forms HOME CARE DOCUMENTATION FORM, IMPORTANT VISIT INFORMATION, WORK / SCHOOL INSTRUCTIONS Patient Instructions My [facility] Health Problem Qualifiers
[2017-07-23 15:28] LABS: BASO % 0.3 %; BASO ABS # 0.04 K/uL (0-0.2); EOS ABS # 0.14 K/uL (0-0.5); HEMATOCRIT 39.1 % (37-47); HEMOGLOBIN 13.5 g/dL (12.0-16.0); IG# 0.05 K/uL (0.00-0.02); LYMPH ABS # 2.36 K/uL (1.2-3.4); MEAN CELL VOLUME 83.4 fL (80-100); MEAN CORPUSCULAR HEMOGLOBIN 28.8 pg (25-34); MEAN CORPUSCULAR HGB CONC 34.5 g/dl (32-36); MEAN PLATELET VOLUME 10.2 fL (7.4-10.4); MONO % 7.3 %; MONO ABS # 1.01 K/uL (0.11-0.59); NEUT ABS # 10.25 K/uL (1.4-6.5); PLATELET COUNT 314 K/uL (130-400); RED CELL DISTRIBUTION WIDTH CV 13.6 % (11.5-14.5); RED CELL DISTRIBUTION WIDTH SD 40.7 fL (36.4-46.3); WHITE BLOOD COUNT 13.85 K/uL (4.8-10.8)
[2017-07-23 15:29] LABS: ALBUMIN 3.8 gm/dl (3.4-5.0); CALCIUM 9.4 mg/dl (8.5-10.1); CREATININE 0.71 mg/dl (0.60-1.20); POTASSIUM 2.8 mmol/L (3.5-5.1)
--- NOTE | 2017-07-23 15:30 | DIAGNOSTIC IMAGING REPORT ---
SINGLE VIEW CHEST CLINICAL HISTORY: Fever. Sepsis. FINDINGS: An AP, portable, upright chest radiograph is compared to study dated 07/13/2017. The examination is degraded by portable technique and patient rotation. The cardiomediastinal silhouette is unremarkable. The lungs and pleural spaces are clear. No pneumothorax is seen. The bony thorax is grossly intact. IMPRESSION: No active disease in the chest. Electronically signed by: Moshen Light M.D. 07/23/2017 3:28 PM Dictated Date/Time: 07/23/2017 3:28 PM
[2017-07-23 15:32] LABS: TOTAL PROTEIN 7.9 gm/dl (6.4-8.2)
--- NOTE | 2017-07-23 17:22 | DIAGNOSTIC IMAGING REPORT ---
R EXTREMITY NONVASCULAR LIMITED CLINICAL HISTORY: Right antecubital fossa pain and swelling., eval for abscess COMPARISON STUDY: None. FINDINGS: Within the subcutaneous soft tissues of the right antecubital fossa there is a complex fluid collection measuring 4.7 x 2.7 x 3.1 cm. There is surrounding increased vascularity and increased echogenicity within the fat. IMPRESSION: A 4.7 x 3.1 x 2.7 cm complex fluid collection within the subcutaneous soft tissues of the right antecubital fossa. This likely represents an abscess or hematoma. Clinical correlation recommended. Electronically signed by: Booker Fabian M.D. 07/23/2017 5:21 PM Dictated Date/Time: 07/23/2017 5:19 PM
--- NOTE | 2017-07-23 17:22 | DIAGNOSTIC IMAGING REPORT ---
R VENOUS DOPPLER UPR EXT UNIL HISTORY: Pain. Edema. eval for interval evolution of DVT COMPARISON STUDY: 07/19/2017 FINDINGS: Unchanged exam. Thrombus seen within the right cephalic vein in a distribution unchanged from the prior study. All major deep venous structures are compressible with vascular flow unremarkable. IMPRESSION: No significant change from the prior study. Superficial thrombophlebitis of the right cephalic vein unchanged in distribution from the prior study. Study is negative for deep venous thrombosis. The above report was generated using voice recognition software. It may contain grammatical, syntax or spelling errors. Electronically signed by: Barrett Swenson M.D. 07/23/2017 5:21 PM Dictated Date/Time: 07/23/2017 5:19 PM
[2017-07-23] MEDS ORDERED: DIPHTHERIA/TETANUS/PERTUSSIS 0.5 ML SYR/VIAL IM. ONE (18:00)
[2017-07-23] MEDS ORDERED: XYLOCAINE 1%/SOD BICARB 20 ML VIAL INFIL ONE (18:00)
--- NOTE | 2017-07-23 18:13 | DIAGNOSTIC IMAGING REPORT ---
RIGHT HUMERUS 2 VIEWS HISTORY: right AC abscess r/o foreign body COMPARISON: None. FINDINGS: There is no fracture or dislocation. Soft tissue swelling at the elbow. No soft tissue gas. No radiopaque foreign bodies. IMPRESSION: Soft tissue swelling at the elbow. No radiopaque foreign bodies. Electronically signed by: Booker Fabian M.D. 07/23/2017 6:11 PM Dictated Date/Time: 07/23/2017 6:08 PM
[2017-07-23] MEDS ORDERED: SODIUM CHLORIDE 0.9% 1000ML 1,000 ML IV STA ×2 (19:15→20:56)
[2017-07-23] MEDS ORDERED: LORAZEPAM 1 MG TAB ONE (20:28)
[2017-07-23] MEDS ORDERED: PANT40TA2 PO (20:53)
[2017-07-23] MEDS ORDERED: ROPI1TAB29 PO (20:53)
[2017-07-23] MEDS ORDERED: FLX10 PO (20:53)
[2017-07-23] MEDS ORDERED: MELO-83 PO (20:53)
[2017-07-23] MEDS ORDERED: RIZA1TAB11 PO (20:53)
[2017-07-23] MEDS ORDERED: MEDR150I19 IM (20:53)
[2017-07-23] MEDS ORDERED: QUET1TAB20 PO (20:53)
[2017-07-23] MEDS ORDERED: LORAZEPAM 1 MG TAB PO STA (20:54)
[2017-07-23] MEDS ORDERED: POTASSIUM CHLORIDE 10 MEQ TABCR PO STA ×2 (20:56)
[2017-07-23] MEDS ORDERED: VANCOMYCIN INJ 1,600 MG in SODIUM CHLORIDE 0.9% 500ML 500 ML IV STA (20:56)
[2017-07-23] MEDS ORDERED: PIPERACILLIN/TAZOBACTAM 4.5 GM/100ML D5W IV STA (20:56)
[2017-07-23] MEDS ORDERED: ACETAMINOPHEN IV 100 ML IV STA (20:56)
[2017-07-23] MEDS ORDERED: POTASSIUM CHLORIDE 10 MEQ / 100ML WTR IV STA (20:56)
[2017-07-23] MEDS ORDERED: VANCOMYCIN CONSULT ACTIVE PRN (21:00)
[2017-07-23] MEDS ORDERED: NSS + 20MEQ KCL 1000ML 1,000 ML IV ONE (21:00)
[2017-07-23] MEDS ORDERED: PRED10TA PO (21:05)
[2017-07-23] MEDS ORDERED: NRN800 PO (22:52)
[2017-07-23] MEDS ORDERED: CYCLOBENZAPRINE HCL 10 MG TAB PO PRN (23:15)
[2017-07-23] MEDS ORDERED: IBUPROFEN 200 MG TAB PO PRN (23:15)
[2017-07-23] MEDS ORDERED: PROCHLORPERAZINE INJ 5 MG in SYRINGE 4 ML IV PRN (23:15)
[2017-07-23] MEDS ORDERED: ACETAMINOPHEN 325 MG TAB PO PRN (23:15)
[2017-07-23] MEDS ORDERED: FLUTICASONE HFA 110MCG INHALER INH PRN (23:15)
[2017-07-23 23:44] VITALS: BP 109/72; PULSE 116; TEMP 37; Ht 157.5 cm; Wt 83.0 kg
[2017-07-23] MEDS ORDERED: DEXTROSE 50% 50 ML SYR IV STA (23:52)
[2017-07-24] MEDS ORDERED: KETOROLAC TROMETHAMINE 30 MG/ML VIAL IV STA (00:10)
[2017-07-24] MEDS ORDERED: POTASSIUM CHLORIDE 10 MEQ TABCR PO STA (00:10)
[2017-07-24] MEDS ORDERED: NSS + 20MEQ KCL 1000ML 1,000 ML IV ONE ×3 (00:15→08:00)
[2017-07-24] MEDS ORDERED: TRAMADOL HCL 50 MG TAB PO PRN (01:00)
[2017-07-24] MEDS: QUETIAPINE FUMARATE 200 MG TAB PO SCH ×2 (01:01→22:12)
--- NOTE | 2017-07-24 04:27 | Pharmacy Progress Note ---
Pharmacy Abx Initial Consult Date of Service Jul 24, 2017. Pharmacy Dosing Scope Date of Consult: 07/23/17 Consultation requested by: Dr. Garcia Pharmacy is consulted to initiate Vanco IV dosing therapy, order appropriate labs and adjust drug dose/frequency. Subjective The patient is a 27 year old female admitted on Jul 23, 2017 at 22:26. Objective Height (Feet): 5 Height (Inches): 2.00 Weight (Kilograms): 83.000 Vital Signs (Past 12Hrs) Vital Signs Past 12 Hours Date Time Temp Pulse Resp B/P (MAP) Pulse Ox O2 Delivery O2 Flow Rate FiO2 07/23/17 23:44 37.0 116 18 109/72 Room Air 07/23/17 23:05 101 16 109/58 95 07/23/17 22:36 101 16 109/58 95 Room Air 07/23/17 21:40 117 16 119/72 95 Room Air 07/23/17 19:03 113 16 112/73 100 Room Air 07/23/17 17:35 112 15 103/72 100 Room Air Lab Results (24Hrs) Laboratory Tests (24 Hours) Test 07/23/17 14:48 07/23/17 21:18 C-Reactive Protein 13.00 mg/dl (0-0.29) H Erythrocyte Sedimentation Rate 34 mm/hr (0-21) H White Blood Count 13.85 K/uL (4.8-10.8) H Red Blood Count 4.69 M/uL (4.2-5.4) Hemoglobin 13.5 g/dL (12.0-16.0) Hematocrit 39.1 % (37-47) Mean Corpuscular Volume 83.4 fL (80-100) Mean Corpuscular Hemoglobin 28.8 pg (25-34) Mean Corpuscular Hemoglobin Concent 34.5 g/dl (32-36) Platelet Count 314 K/uL (130-400) Mean Platelet Volume 10.2 fL (7.4-10.4) Neutrophils (%) (Auto) 74.0 % Lymphocytes (%) (Auto) 17.0 % Monocytes (%) (Auto) 7.3 % Eosinophils (%) (Auto) 1.0 % Basophils (%) (Auto) 0.3 % Neutrophils # (Auto) 10.25 K/uL (1.4-6.5) H Lymphocytes # (Auto) 2.36 K/uL (1.2-3.4) Monocytes # (Auto) 1.01 K/uL (0.11-0.59) H Eosinophils # (Auto) 0.14 K/uL (0-0.5) Basophils # (Auto) 0.04 K/uL (0-0.2) Procalcitonin 0.89 ng/ml (0-0.5) H Lactic Acid Level 1.6 mmol/L (0.4-2.0) Micro Results Date/Time Source Procedure Growth Status 07/23/17 14:57 Blood Blood Culture Pending Received 07/23/17 14:48 Blood Blood Culture Pending Received 07/23/17 20:23 Abscess Arm , Right Upper Gram Stain - Final Resulted 07/23/17 20:23 Abscess Arm , Right Upper Wound Culture Pending Resulted Assessment & Plan Assessment 27 year old female s/p I&D. Being started on Vancomycin for an abscess. She has a h/o IVDU; however, I spoke w/ Dr. Tinsley: initial I&D gram stain is growing GPC. Probably not necessary to cover HACEK organisms at this point. Pt population p'kinetics: t1/2=6.6, ke=.104. Plan Vancomycin: * Vanco 1600mg (19mg/kg) given in ED to achieve a peak ~28mcg/mL * Then Vanco 1250 (15mg/kg) q8 set to start at 0600 07/24/17 * Goal trough until JOS, c/s's result: 15-20mcg/mL * Trough ordered for 07/25/17 @0530, prior to the 4th maintenance dose Pharmacy will continue to follow and will adjust dose/frequency as necessary. Thank you.
[2017-07-24] MEDS: VANCOMYCIN INJ 1,250 MG in SODIUM CHLORIDE 0.9% 250ML 250 ML IV SCH ×3 (06:20→21:39)
[2017-07-24 07:29] VITALS: BP 98/63; PULSE 105; TEMP 36.8; O2SAT 97
[2017-07-24 07:40] LABS: BASO % 0.4 %; BASO ABS # 0.03 K/uL (0-0.2); EOS % 1.1 %; EOS ABS # 0.09 K/uL (0-0.5); HEMATOCRIT 30.8 % (37-47); HEMOGLOBIN 10.2 g/dL (12.0-16.0); IG# 0.02 K/uL (0.00-0.02); LYMPH % 27.6 %; LYMPH ABS # 2.23 K/uL (1.2-3.4); MEAN CELL VOLUME 84.4 fL (80-100); MEAN CORPUSCULAR HEMOGLOBIN 27.9 pg (25-34); MEAN CORPUSCULAR HGB CONC 33.1 g/dl (32-36); MONO ABS # 0.65 K/uL (0.11-0.59); NEUT % 62.7 %; NEUT ABS # 5.06 K/uL (1.4-6.5); PLATELET COUNT 265 K/uL (130-400); RED CELL DISTRIBUTION WIDTH CV 13.7 % (11.5-14.5); RED CELL DISTRIBUTION WIDTH SD 42.2 fL (36.4-46.3); WHITE BLOOD COUNT 8.08 K/uL (4.8-10.8)
[2017-07-24 07:51] LABS: CALCIUM 8.1 mg/dl (8.5-10.1); CREATININE 0.56 mg/dl (0.60-1.20); POTASSIUM 3.9 mmol/L (3.5-5.1)
[2017-07-24] MEDS: ENOXAPARIN 40 MG/0.4 ML SYR SQ SCH (08:00)
[2017-07-24] MEDS ORDERED: VANCOMYCIN CONSULT ACTIVE PRN (08:00)
[2017-07-24] MEDS: NICOTINE 14 MG/24 HR TDSY TD SCH (08:00)
--- NOTE | 2017-07-24 08:01 | HISTORY & PHYSICAL EXAMINATION ---
DATE OF ADMISSION: 07/23/2017 PRIMARY CARE PHYSICIAN: Dr. Oneil. CHIEF COMPLAINT: Right arm swelling. HISTORY OF PRESENT ILLNESS: History obtained from patient and records. Medical history significant for migraine, asthma, ongoing tobacco abuse, history of narcotic addiction as per records, mood disorder, history of cephalic vein thrombosis. hx Hepatitis C antibody positivity, Recent ER visit last week for right arm swelling. Ultrasound showed a thrombosed right cephalic vein mid to distal upper arm. Patient given option between NSAID rx versus 6 week duration anticoagulation. Patient chose the latter. Had one dose of Xarelto at the ER. Progressive swelling noted over the next few days. Has not had a home dose of Xarelto since ER discharge since she has yet to chart picker prescription up from the pharmacy. No chest pain, no shortness of breath, had some chills. Patient had nausea, emesis symptoms. No abdominal pain. At the Emergency Room, an ultrasound showed abscess on the right upper extremity. Abscess subsequently drained. Received vancomycin and Zosyn. Denies recent IVDU. Last time she used needles was about 3 weeks ago. MEDICAL HISTORY: As above. SURGERIES: She has had tonsillectomy, repair of stomach lesion, nerve decompression and dental surgery. HOME MEDICATIONS: Include albuterol, Depo-Provera, Xarelto (has not vtaken, sumatriptan, cyclobenzaprine, gabapentin, Meloxicam, Protonix, ropinirole. ALLERGIES: AZITHROMYCIN, MACROLIDE, SULFA, BACTRIM. FAMILY HISTORY: Anemia, migraine, breast cancer, ovarian cancer. PERSONAL AND SOCIAL HISTORY: Pack daily. No chronic intake of alcoholic beverages. 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 Admits to IV drug use, although not in the last few weeks. REVIEW OF SYSTEMS: As per HPI. All 10 systems reviewed. All other ROS negative. PHYSICAL EXAMINATION: VITAL SIGNS: Blood pressure was noted to be 120/85, pulse rate 130, later 101, RR 16, temperature 36.7, sats 98 on room air. GENERAL: Noted to be obese, comfortable, looks older for stated age. No respiratory distress. SKIN: Normal color. Warm. Multiple tattoos. HEENT: Yale palpebral conjunctiva. No ptosis. Dry mucosa. NECK: Supple, nontender. CHEST: Clear to auscultation. No tenderness. HEART: Tachycardic. Palpable LE pulses ABDOMEN: Some distention, nontender. EXTREMITIES: Dressing on the right upper extremity. Some tenderness. NEUROLOGIC: Coherent. No gross focality. LABORATORY DATA: Hemoglobin was noted to be 13.8, hematocrit 39.1, white cell count 13.85, platelets 214. Sodium 136, potassium 2.8, chloride 97, CO2 of 28, BUN 6, creatinine 0.7, glucose was noted to be 65. Right humerus x-ray, soft tissue swelling on the elbow. Ultrasound of extremity 4.7 x 3.5 x 2.7 complex fluid collection within subcutaneous soft tissue, right abscess or hematoma. Initial Gram stain gram positive cocci, many polys. ASSESSMENT: 1. Sepsis 2 to right upper extremity abscess Gram-positive cocci on initial Gram stain history of recent superficial RUE clot sp 1 dose of Xarelto (hx depot hormonal contraception) History of IV drug use/history narcotic addiction and records 2. Hypokalemia secondary to emesis. 3. History of mood disorder, stable 4. Ongoing tobacco abuse. 5. Hepatitis antibody positivity as per records. Outpatient HCV RNA labwork already requested. PLAN: GMF IVF follow cultures. IV Vancomycin for now. Local measures for abscess/cellulitis. Orthopedics consult. RE Followup evaluation for right upper extremity abscess. Hold off on anticoagulation for superficial clot. Patient counseled to talk to contract management specialist about alternative forms of contraception on outpatient follow up next month given history of superficial thrombus. Replace potassium. Nicotine patch. DVT prophylaxis Lovenox subQ. Full code. MTDD
[2017-07-24] MEDS: GABAPENTIN 800 MG TAB PO SCH ×3 (08:38→22:12)
[2017-07-24] MEDS: MELOXICAM 7.5 MG TAB PO SCH (08:38)
[2017-07-24] MEDS: PANTOprazole SOD 40 MG TAB PO SCH (08:38)
[2017-07-24] MEDS ORDERED: KETOROLAC TROMETHAMINE 30 MG/ML VIAL IV ONE (13:30)
--- NOTE | 2017-07-24 14:00 | Progress Note ---
Medicine Progress Note Date & Time of Visit: Jul 24, 2017 at 13:21. 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 -tolerating PO -states that her arm is sore -denies fevers or chills -denies other symptoms Objective Last 8 Hrs Date Time Temp Pulse Resp B/P (MAP) Pulse Ox O2 Delivery O2 Flow Rate FiO2 07/24/17 08:00 Room Air 07/24/17 07:29 36.8 105 18 98/63 (75) 97 Room Air Physical Exam: GEN: WNWD, in mild distress when arm manipulated, alert and appropriate HEENT: NC/AT, normal sclerae, MMM CARDIO: tachy rate, S1/2 heard without m/g/r LUNGS: CTA bilaterally, no crackles, rales or wheezes, good diaphragmatic excursion ABD: soft, non-tender, non-distended, no rebound or guarding EXTREMITY: RP and DP palpable 2+ bilat, no LE swelling or edema, extremities are warm and well-perfused RUE: just superior to AC fossa-packing in place covering with dressing. No surrounding erythema, no drainage from wound noted. NEURO: CN 2-12 grossly intact MUSC: moves all extremities equally, no gross focal deficits SKIN: warm and dry Laboratory Results: 07/24/17 07:16 Red Blood Count 3.65, Mean Corpuscular Volume 84.4, Mean Corpuscular Hemoglobin 27.9, Mean Corpuscular Hemoglobin Concent 33.1, Mean Platelet Volume 10.0, Neutrophils (%) (Auto) 62.7, Lymphocytes (%) (Auto) 27.6, Monocytes (%) (Auto) 8.0, Eosinophils (%) (Auto) 1.1, Basophils (%) (Auto) 0.4, Neutrophils # (Auto) 5.06, Lymphocytes # (Auto) 2.23, Monocytes # (Auto) 0.65, Eosinophils # (Auto) 0.09, Basophils # (Auto) 0.03 07/24/17 07:16 Test 07/23/17 14:48 07/23/17 18:30 07/23/17 21:18 07/24/17 06:56 Erythrocyte Sedimentation Rate 34 mm/hr (0-21) Magnesium Level 2.1 mg/dl (1.8-2.4) Total Bilirubin 0.6 mg/dl (0.2-1) Direct Bilirubin 0.2 mg/dl (0-0.2) Aspartate Amino Transf (AST/SGOT) 42 U/L (15-37) Alanine Aminotransferase (ALT/SGPT) 39 U/L (12-78) Alkaline Phosphatase 115 U/L (45-117) C-Reactive Protein 13.00 mg/dl (0-0.29) Total Protein 7.9 gm/dl (6.4-8.2) Albumin 3.8 gm/dl (3.4-5.0) Lipase 82 U/L (73-393) Procalcitonin 0.89 ng/ml (0-0.5) Thyroid Stimulating Hormone (TSH) 1.540 uIu/ml (0.300-4.500) Urine Color YELLOW Urine Appearance CLEAR (CLEAR) Urine pH 6.0 (4.5-7.5) Urine Specific [place] 1.009 (1.000-1.030) Urine Protein NEG (NEG) Urine Glucose (UA) NEG (NEG) Urine Ketones NEG (NEG) Urine Occult Blood NEG (NEG) Urine Nitrite NEG (NEG) Urine Bilirubin NEG (NEG) Urine Urobilinogen NEG (NEG) Urine Leukocyte Esterase NEG (NEG) Urine WBC (Auto) 1-5 /hpf (0-5) Urine RBC (Auto) 0-4 /hpf (0-4) Urine Hyaline Casts (Auto) 1-5 /lpf (0-5) Urine Epithelial Cells (Auto) >30 /lpf (0-5) Urine Bacteria (Auto) NEG (NEG) Urine Test NEG (NEG) Urine Opiates Screen POS (NEG) Urine Methadone, Qualitative NEG (NEG) Urine Barbiturates NEG (NEG) Urine Phencyclidine (PCP) Level NEG (NEG) Ur Amphetamine/Methamphetamine NEG (NEG) MDMA (Ecstasy) Screen NEG (NEG) Urine Benzodiazepines Screen NEG (NEG) Urine Cocaine Metabolite NEG (NEG) Urine Marijuana (THC) NEG (NEG) Lactic Acid Level 1.6 mmol/L (0.4-2.0) Bedside Glucose 97 mg/dl (70-90) Test 07/24/17 07:16 White Blood Count 8.08 K/uL (4.8-10.8) Red Blood Count 3.65 M/uL (4.2-5.4) Hemoglobin 10.2 g/dL (12.0-16.0) Hematocrit 30.8 % (37-47) Mean Corpuscular Volume 84.4 fL (80-100) Mean Corpuscular Hemoglobin 27.9 pg (25-34) Mean Corpuscular Hemoglobin Concent 33.1 g/dl (32-36) Platelet Count 265 K/uL (130-400) Mean Platelet Volume 10.0 fL (7.4-10.4) Neutrophils (%) (Auto) 62.7 % Lymphocytes (%) (Auto) 27.6 % Monocytes (%) (Auto) 8.0 % Eosinophils (%) (Auto) 1.1 % Basophils (%) (Auto) 0.4 % Neutrophils # (Auto) 5.06 K/uL (1.4-6.5) Lymphocytes # (Auto) 2.23 K/uL (1.2-3.4) Monocytes # (Auto) 0.65 K/uL (0.11-0.59) Eosinophils # (Auto) 0.09 K/uL (0-0.5) Basophils # (Auto) 0.03 K/uL (0-0.2) RDW Standard Deviation 42.2 fL (36.4-46.3) RDW Coefficient of Variation 13.7 % (11.5-14.5) Immature Granulocyte % (Auto) 0.2 % Immature Granulocyte # (Auto) 0.02 K/uL (0.00-0.02) Prothrombin Time 10.8 SECONDS (9.0-12.0) Prothromb Time International Ratio 1.0 (0.9-1.1) Anion Gap 6.0 mmol/L (3-11) Est Creatinine Clear Calc Drug Dose 152.1 ml/min Estimated GFR () 149.1 Estimated GFR (Non- 128.7 BUN/Creatinine Ratio 12.6 (10-20) Calcium Level 8.1 mg/dl (8.5-10.1) Date/Time Source Procedure Growth Status 07/23/17 14:57 Blood Blood Culture Pending Received 07/23/17 20:23 Abscess Arm , Right Upper Gram Stain - Final Resulted 07/23/17 20:23 Wound Culture - Preliminary Staphylococcus Aureus Resulted Last 24 Hours Test 2/19/18 14:48 07/23/17 14:57 07/23/17 18:30 07/23/17 21:18 White Blood Count 13.85 K/uL Red Blood Count 4.69 M/uL Hemoglobin 13.5 g/dL Hematocrit 39.1 % Mean Corpuscular Volume 83.4 fL Mean Corpuscular Hemoglobin 28.8 pg Mean Corpuscular Hemoglobin Concent 34.5 g/dl Platelet Count 314 K/uL Mean Platelet Volume 10.2 fL Neutrophils (%) (Auto) 74.0 % Lymphocytes (%) (Auto) 17.0 % Monocytes (%) (Auto) 7.3 % Eosinophils (%) (Auto) 1.0 % Basophils (%) (Auto) 0.3 % Neutrophils # (Auto) 10.25 K/uL Lymphocytes # (Auto) 2.36 K/uL Monocytes # (Auto) 1.01 K/uL Eosinophils # (Auto) 0.14 K/uL Basophils # (Auto) 0.04 K/uL RDW Standard Deviation 40.7 fL RDW Coefficient of Variation 13.6 % Immature Granulocyte % (Auto) 0.4 % Immature Granulocyte # (Auto) 0.05 K/uL Erythrocyte Sedimentation Rate 34 mm/hr Sodium Level 136 mmol/L Potassium Level 2.8 mmol/L Chloride Level 97 mmol/L Carbon Dioxide Level 28 mmol/L Anion Gap 11.0 mmol/L Blood Urea Nitrogen 6 mg/dl Creatinine 0.71 mg/dl Est Creatinine Clear Calc Drug Dose 119.9 ml/min Estimated GFR () 136.2 Estimated GFR (Non- 117.6 BUN/Creatinine Ratio 8.6 Random Glucose 65 mg/dl Calcium Level 9.4 mg/dl Magnesium Level 2.1 mg/dl Total Bilirubin 0.6 mg/dl Direct Bilirubin 0.2 mg/dl Aspartate Amino Transf (AST/SGOT) 42 U/L Alanine Aminotransferase (ALT/SGPT) 39 U/L Alkaline Phosphatase 115 U/L C-Reactive Protein 13.00 mg/dl Total Protein 7.9 gm/dl Albumin 3.8 gm/dl Lipase 82 U/L Procalcitonin 0.89 ng/ml Thyroid Stimulating Hormone (TSH) 1.540 uIu/ml Lactic Acid Level 2.2 mmol/L 1.6 mmol/L Urine Color YELLOW Urine Appearance CLEAR Urine pH 6.0 Urine Specific [place] 1.009 Urine Protein NEG Urine Glucose (UA) NEG Urine Ketones NEG Urine Occult Blood NEG Urine Nitrite NEG Urine Bilirubin NEG Urine Urobilinogen NEG Urine Leukocyte Esterase NEG Urine WBC (Auto) 1-5 /hpf Urine RBC (Auto) 0-4 /hpf Urine Hyaline Casts (Auto) 1-5 /lpf Urine Epithelial Cells (Auto) >30 /lpf Urine Bacteria (Auto) NEG Urine Test NEG Urine Opiates Screen POS Urine Methadone, Qualitative NEG Urine Barbiturates NEG Urine Phencyclidine (PCP) Level NEG Ur Amphetamine/Methamphetamine NEG MDMA (Ecstasy) Screen NEG Urine Benzodiazepines Screen NEG Urine Cocaine Metabolite NEG Urine Marijuana (THC) NEG Test 07/23/17 21:36 07/24/17 00:33 07/24/17 06:56 07/24/17 07:16 Bedside Glucose 87 mg/dl 105 mg/dl 97 mg/dl White Blood Count 8.08 K/uL Red Blood Count 3.65 M/uL Hemoglobin 10.2 g/dL Hematocrit 30.8 % Mean Corpuscular Volume 84.4 fL Mean Corpuscular Hemoglobin 27.9 pg Mean Corpuscular Hemoglobin Concent 33.1 g/dl Platelet Count 265 K/uL Mean Platelet Volume 10.0 fL Neutrophils (%) (Auto) 62.7 % Lymphocytes (%) (Auto) 27.6 % Monocytes (%) (Auto) 8.0 % Eosinophils (%) (Auto) 1.1 % Basophils (%) (Auto) 0.4 % Neutrophils # (Auto) 5.06 K/uL Lymphocytes # (Auto) 2.23 K/uL Monocytes # (Auto) 0.65 K/uL Eosinophils # (Auto) 0.09 K/uL Basophils # (Auto) 0.03 K/uL RDW Standard Deviation 42.2 fL RDW Coefficient of Variation 13.7 % Immature Granulocyte % (Auto) 0.2 % Immature Granulocyte # (Auto) 0.02 K/uL Prothrombin Time 10.8 SECONDS Prothromb Time International Ratio 1.0 Sodium Level 143 mmol/L Potassium Level 3.9 mmol/L Chloride Level 113 mmol/L Carbon Dioxide Level 25 mmol/L Anion Gap 6.0 mmol/L Blood Urea Nitrogen 7 mg/dl Creatinine 0.56 mg/dl Est Creatinine Clear Calc Drug Dose 152.1 ml/min Estimated GFR () 149.1 Estimated GFR (Non- 128.7 BUN/Creatinine Ratio 12.6 Random Glucose 92 mg/dl Calcium Level 8.1 mg/dl Date/Time Source Procedure Growth Status 07/23/17 14:57 Blood Blood Culture Pending Received 07/23/17 14:48 Blood Blood Culture Pending Received 07/23/17 20:23 Abscess Arm , Right Upper Gram Stain - Final Resulted 07/23/17 20:23 Wound Culture - Preliminary Staphylococcus Aureus Resulted Assessment & Plan 27 yo F IVDU with h/o superficial clot in arm 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 1. Sepsis 2/2 RUE abscess. Rescuscitated and continues on Vanc. ER physician performed I&D with packing. No evidence of cellulitis or drainage. Area needs to be re-evaluated with daily packing performed. Wound care nurse consulted for this. Ortho also consulted but hasn't seen patient yet today. Will await further recs from them. Wound culture continues to show staph aureus with sensitivities pending. Toradol started for pain. h/o IV drug use, so will avoid narcotics. 2. Thrombophlebitis-small clot in superficial vein in RUE. PT wishes to do Xarelto for 6 weeks. Will initiate this once the wound is reassessed and OK with surgery. 3. Emesis-resolved, patient is eating. 4. Hypokalemia-resolved. 5. h/o mood disorder-stable. Cont home meds 6. Smoker-declined nicoderm patch 7. Hepatitis antibody positivity as per records. Outpatient HCV RNA labwork already requested. DVT proph-Lovenox Full Code Dispo-to home once wound assessed and things settle out in 1-2 days. Patient counseled to talk to corporate director of human resources about alternative forms of contraception on outpatient follow up next month given history of superficial thrombus per admitting physician. [facility] Consultants: Wound care Ortho Current Inpatient Medications: Current Inpatient Medications Medications (Trade) Dose Ordered Sig/Ya Route Start Time Stop Time Status Last Admin Dose Admin Ketorolac Tromethamine (Toradol Inj) 15 mg Q6H PRN IV. 07/23/17 21:15 07/28/17 21:14 Acetaminophen (Tylenol Tab) 650 mg Q4H PRN PO 07/23/17 23:15 08/22/17 23:14 Prochlorperazine Edisylate 5 mg/ Syringe 5 ml @ 5 mls/min Q6H PRN IV 07/23/17 23:15 08/22/17 23:14 Nicotine (Nicoderm Cq 14MG Patch) 1 patch QAM TD 07/24/17 08:00 08/23/17 08:59 Ibuprofen (Advil Tab) 400 mg Q6H PRN PO 07/23/17 23:15 08/22/17 23:14 Miscellaneous (Remove Nicoderm Patch) 1 ea HS N/A 07/24/17 21:00 08/23/17 20:59 Cyclobenzaprine HCl (Flexeril Tab) 10 mg BID PRN PO 07/23/17 23:15 08/22/17 23:14 Fluticasone Propionate (Flovent Hfa 110MCG Inhaler) 2 puffs BID PRN INH 07/23/17 23:15 08/22/17 23:14 Gabapentin (Neurontin Tab) 800 mg TID PO 07/24/17 08:00 08/23/17 08:59 07/24/17 08:38 800 MG Pantoprazole Sodium (Protonix Tab) 40 mg DAILY PO 07/24/17 08:00 08/23/17 08:59 07/24/17 08:38 40 MG Ropinirole HCl (Requip Tab) 1 mg HS PO 07/25/17 01:00 08/24/17 00:59 Meloxicam (Mobic Tab) 15 mg DAILY PO 07/24/17 08:00 08/23/17 08:59 07/24/17 08:38 15 MG Quetiapine Fumarate (seroQUEL TAB) 400 mg HS PO 07/24/17 00:30 08/23/17 00:29 07/24/17 01:01 400 MG Miscellaneous Information (Consult) 1 ea UD PRN N/A 07/24/17 08:00 08/23/17 07:59 Vancomycin HCl 1250 mg/Sodium Chloride 275 ml @ 125 mls/hr Q8@0600,1400,2200 IV 07/24/17 06:00 08/03/17 05:59 07/24/17 06:20 125 MLS/HR Enoxaparin Sodium (Lovenox Inj) 40 mg DAILY SQ 07/24/17 08:00 08/23/17 07:59
--- NOTE | 2017-07-24 15:56 | ORTHOPEDIC CONSULTATION ---
DATE OF ADMISSION: 07/23/2017 HISTORY OF PRESENT ILLNESS: The patient has been seen and evaluated. She is 27-year-old with the right antecubital fossa abscess that was I&D'd in the ER. She had cellulitis and area of induration and there is approximately 1.5 cm incision over the anterior aspect of her antecubital fossa which was previously washed out and packed. The patient relates the cellulitis is resolving, compared to the markers that were placed on her skin, the cellulitis looks like it is resolved by about 25%, liner reroll tender with some induration. Discussed the possibility of an I&D pending response of continued IV antibiotics over the night. Will make her n.p.o. for possible I&D tomorrow pending her response to IV antibiotics of this evening. OLIVIA
[2017-07-24 16:10] VITALS: BP 122/79; PULSE 95; TEMP 36.8; O2SAT 97
[2017-07-24] MEDS: KETOROLAC TROMETHAMINE 15 MG/ML VIAL IV. PRN (21:39)
[2017-07-24] MEDS: ROPINIROLE HCL 1 MG TAB PO SCH (21:42)
[2017-07-25 00:05] VITALS: BP 104/69; PULSE 100; TEMP 36.9; O2SAT 98
[2017-07-25] MEDS ORDERED: VANCOMYCIN TROUGH ONE (05:30)
[2017-07-25] MEDS: KETOROLAC TROMETHAMINE 15 MG/ML VIAL IV. PRN ×2 (05:33→15:16)
[2017-07-25] MEDS: VANCOMYCIN INJ 1,250 MG in SODIUM CHLORIDE 0.9% 250ML 250 ML IV SCH ×3 (05:57→21:41)
[2017-07-25 07:25] VITALS: BP 114/76; PULSE 96; TEMP 36.8; O2SAT 99
[2017-07-25] MEDS: ENOXAPARIN 40 MG/0.4 ML SYR SQ SCH (08:00)
[2017-07-25] MEDS: NICOTINE 14 MG/24 HR TDSY TD SCH (08:00)
[2017-07-25] MEDS: GABAPENTIN 800 MG TAB PO SCH ×3 (10:15→21:32)
[2017-07-25] MEDS: MELOXICAM 7.5 MG TAB PO SCH (11:01)
[2017-07-25] MEDS: PANTOprazole SOD 40 MG TAB PO SCH (11:01)
--- NOTE | 2017-07-25 11:49 | Progress Note ---
Medicine Progress Note Date & Time of Visit: Jul 25, 2017 at 11:43. 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 Pt was seen in ER and received an IV in that spot approx 5 days prior to the development of erythema and soreness. She went to the eR a few days later when she was found with a superficial clot and placed on 6 weeks of Xarelto. She only took one dose prior to needing repeat ER visit with I&D and subsequent admission. She reports that her pain is improved from yesterday. Afebrile, she is tolerating PO. She is frustrated being hospitalized and we discussed the reason for that and increased her activity a little bit to help ease her frustration. Objective Last 8 Hrs Date Time Temp Pulse Resp B/P (MAP) Pulse Ox O2 Delivery O2 Flow Rate FiO2 07/25/17 08:00 Room Air 07/25/17 07:25 36.8 96 22 114/76 (89) 99 Room Air Physical Exam: GEN: WNWD, NAD, alert and appropriate HEENT: NC/AT, normal sclerae, MMM CARDIO: reg rate, S1/2 heard without m/g/r LUNGS: CTA bilaterally, no crackles, rales or wheezes, good diaphragmatic excursion ABD: soft, non-tender, non-distended, no rebound or guarding EXTREMITY: RP and DP palpable 2+ bilat, no LE swelling or edema, extremities are warm and well-perfused RUE: just superior to AC fossa-packing in place covering with dressing. No surrounding erythema, no drainage from wound noted. NEURO: CN 2-12 grossly intact MUSC: moves all extremities equally, no gross focal deficits SKIN: warm and dry and wound as above. Laboratory Results: 07/24/17 07:16 Red Blood Count 3.65, Mean Corpuscular Volume 84.4, Mean Corpuscular Hemoglobin 27.9, Mean Corpuscular Hemoglobin Concent 33.1, Mean Platelet Volume 10.0, Neutrophils (%) (Auto) 62.7, Lymphocytes (%) (Auto) 27.6, Monocytes (%) (Auto) 8.0, Eosinophils (%) (Auto) 1.1, Basophils (%) (Auto) 0.4, Neutrophils # (Auto) 5.06, Lymphocytes # (Auto) 2.23, Monocytes # (Auto) 0.65, Eosinophils # (Auto) 0.09, Basophils # (Auto) 0.03 07/24/17 07:16 Test 07/23/17 14:48 07/23/17 18:30 07/23/17 21:18 07/24/17 06:56 Erythrocyte Sedimentation Rate 34 mm/hr (0-21) Magnesium Level 2.1 mg/dl (1.8-2.4) Total Bilirubin 0.6 mg/dl (0.2-1) Direct Bilirubin 0.2 mg/dl (0-0.2) Aspartate Amino Transf (AST/SGOT) 42 U/L (15-37) Alanine Aminotransferase (ALT/SGPT) 39 U/L (12-78) Alkaline Phosphatase 115 U/L (45-117) C-Reactive Protein 13.00 mg/dl (0-0.29) Total Protein 7.9 gm/dl (6.4-8.2) Albumin 3.8 gm/dl (3.4-5.0) Lipase 82 U/L (73-393) Procalcitonin 0.89 ng/ml (0-0.5) Thyroid Stimulating Hormone (TSH) 1.540 uIu/ml (0.300-4.500) Urine Color YELLOW Urine Appearance CLEAR (CLEAR) Urine pH 6.0 (4.5-7.5) Urine Specific [place] 1.009 (1.000-1.030) Urine Protein NEG (NEG) Urine Glucose (UA) NEG (NEG) Urine Ketones NEG (NEG) Urine Occult Blood NEG (NEG) Urine Nitrite NEG (NEG) Urine Bilirubin NEG (NEG) Urine Urobilinogen NEG (NEG) Urine Leukocyte Esterase NEG (NEG) Urine WBC (Auto) 1-5 /hpf (0-5) Urine RBC (Auto) 0-4 /hpf (0-4) Urine Hyaline Casts (Auto) 1-5 /lpf (0-5) Urine Epithelial Cells (Auto) >30 /lpf (0-5) Urine Bacteria (Auto) NEG (NEG) Urine Test NEG (NEG) Urine Opiates Screen POS (NEG) Urine Methadone, Qualitative NEG (NEG) Urine Barbiturates NEG (NEG) Urine Phencyclidine (PCP) Level NEG (NEG) Ur Amphetamine/Methamphetamine NEG (NEG) MDMA (Ecstasy) Screen NEG (NEG) Urine Benzodiazepines Screen NEG (NEG) Urine Cocaine Metabolite NEG (NEG) Urine Marijuana (THC) NEG (NEG) Lactic Acid Level 1.6 mmol/L (0.4-2.0) Bedside Glucose 97 mg/dl (70-90) Test 07/24/17 07:16 07/25/17 05:37 White Blood Count 8.08 K/uL (4.8-10.8) Red Blood Count 3.65 M/uL (4.2-5.4) Hemoglobin 10.2 g/dL (12.0-16.0) Hematocrit 30.8 % (37-47) Mean Corpuscular Volume 84.4 fL (80-100) Mean Corpuscular Hemoglobin 27.9 pg (25-34) Mean Corpuscular Hemoglobin Concent 33.1 g/dl (32-36) Platelet Count 265 K/uL (130-400) Mean Platelet Volume 10.0 fL (7.4-10.4) Neutrophils (%) (Auto) 62.7 % Lymphocytes (%) (Auto) 27.6 % Monocytes (%) (Auto) 8.0 % Eosinophils (%) (Auto) 1.1 % Basophils (%) (Auto) 0.4 % Neutrophils # (Auto) 5.06 K/uL (1.4-6.5) Lymphocytes # (Auto) 2.23 K/uL (1.2-3.4) Monocytes # (Auto) 0.65 K/uL (0.11-0.59) Eosinophils # (Auto) 0.09 K/uL (0-0.5) Basophils # (Auto) 0.03 K/uL (0-0.2) RDW Standard Deviation 42.2 fL (36.4-46.3) RDW Coefficient of Variation 13.7 % (11.5-14.5) Immature Granulocyte % (Auto) 0.2 % Immature Granulocyte # (Auto) 0.02 K/uL (0.00-0.02) Prothrombin Time 10.8 SECONDS (9.0-12.0) Prothromb Time International Ratio 1.0 (0.9-1.1) Anion Gap 6.0 mmol/L (3-11) Est Creatinine Clear Calc Drug Dose 152.1 ml/min Estimated GFR () 149.1 Estimated GFR (Non- 128.7 BUN/Creatinine Ratio 12.6 (10-20) Calcium Level 8.1 mg/dl (8.5-10.1) Vancomycin Level Trough 16.1 mcg/ml (SEE COMMENT) Date/Time Source Procedure Growth Status 07/23/17 14:57 Blood Blood Culture - Preliminary NO GROWTH TO DATE. Resulted 07/23/17 20:23 Abscess Arm , Right Upper Gram Stain - Final Resulted 07/23/17 20:23 Wound Culture - Preliminary Staph. 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 Pt was seen in ER and received an IV in that spot approx 5 days prior to the development of erthythema and soreness. She went to the eR a few days later when she was found with a superficial clot and placed on 6 weeks of Xarelto. She only took one dose prior to needing repeat ER visit with I&D and subsequent admission. She reports that her pain is improved from yesterday. Afebrile, she is tolerating PO. She is frustrated being hospitalized and we discussed the reason for that and increased her activity a little bit to help ease her frustration. If Ortho does not want to perform any further washouts, will restart her Xarelto and get her set up to go home. Will ask ID to see her for assistance with antibiotic course and options. 1. Sepsis 2/2 RUE abscess. Resuscitated and continues on Vanc. Clinically improved since yesterday. ER physician performed I&D with packing, and wound and nursing staff has repacked daily. No evidence of cellulitis or drainage. Area needs to be re-evaluated with daily packing performed. Wound culture reveals MRSA and now GNB. Consulting ID for assistance with abx selection. Toradol controlling pain. h/o IV drug use, so will avoid narcotics. 2. Thrombophlebitis-small clot in superficial vein in RUE. PT wishes to do Xarelto for 6 weeks. Will initiate this once the wound is reassessed and OK with surgery. 3. h/o mood disorder-stable. Cont home meds 4 Smoker-declined nicoderm patch 5. Hepatitis antibody positivity as per records. Outpatient HCV RNA labwork already requested. DVT proph-Lovenox Full Code Dispo-to home in next few days. DO Tre Gilliam Hospitalist Consultants: Wound care Ortho Current Inpatient Medications: Current Inpatient Medications Medications (Trade) Dose Ordered Sig/Ya Route Start Time Stop Time Status Last Admin Dose Admin Ketorolac Tromethamine (Toradol Inj) 15 mg Q6H PRN IV. 07/23/17 21:15 07/28/17 21:14 07/25/17 05:33 15 MG Acetaminophen (Tylenol Tab) 650 mg Q4H PRN PO 07/23/17 23:15 08/22/17 23:14 07/25/17 00:15 650 MG Prochlorperazine Edisylate 5 mg/ Syringe 5 ml @ 5 mls/min Q6H PRN IV 07/23/17 23:15 08/22/17 23:14 Nicotine (Nicoderm Cq 14MG Patch) 1 patch QAM TD 07/24/17 08:00 08/23/17 08:59 Ibuprofen (Advil Tab) 400 mg Q6H PRN PO 07/23/17 23:15 08/22/17 23:14 Miscellaneous (Remove Nicoderm Patch) 1 ea HS N/A 07/24/17 21:00 08/23/17 20:59 Cyclobenzaprine HCl (Flexeril Tab) 10 mg BID PRN PO 07/23/17 23:15 08/22/17 23:14 Fluticasone Propionate (Flovent Hfa 110MCG Inhaler) 2 puffs BID PRN INH 07/23/17 23:15 08/22/17 23:14 Gabapentin (Neurontin Tab) 800 mg TID PO 07/24/17 08:00 08/23/17 08:59 07/25/17 10:15 800 MG Pantoprazole Sodium (Protonix Tab) 40 mg DAILY PO 07/24/17 08:00 08/23/17 08:59 07/25/17 11:01 40 MG Ropinirole HCl (Requip Tab) 1 mg HS PO 07/25/17 01:00 08/24/17 00:59 07/24/17 21:42 1 MG Meloxicam (Mobic Tab) 15 mg DAILY PO 07/24/17 08:00 08/23/17 08:59 07/25/17 11:01 15 MG Quetiapine Fumarate (seroQUEL TAB) 400 mg HS PO 07/24/17 00:30 08/23/17 00:29 07/24/17 22:12 400 MG Miscellaneous Information (Consult) 1 ea UD PRN N/A 07/24/17 08:00 08/23/17 07:59 Vancomycin HCl 1250 mg/Sodium Chloride 275 ml @ 125 mls/hr Q8@0600,1400,2200 IV 07/24/17 06:00 08/03/17 05:59 07/25/17 05:57 125 MLS/HR Enoxaparin Sodium (Lovenox Inj) 40 mg DAILY SQ 07/24/17 08:00 08/23/17 07:59 Ketorolac Tromethamine (Toradol Inj) 30 mg Q6H PRN IV 07/24/17 13:30 07/29/17 13:29
--- NOTE | 2017-07-25 12:05 | Pharmacy Progress Note ---
Pharmacy Abx Dose Short Note Date of Service Jul 25, 2017. Assessment & Plan Assessment 27 year old female receiving vancomycin for treatment of arm abscess with MRSA. History of IV drug use. Day # 2 of antimicrobial therapy. Wound culture results: SPEC #: [id number] BERNADINE: 07/23/17 STATUS: RES REQ #: [id number] RECD: 07/23/[address] [facility] [address]: Vin Mcmanus M.D. SOURCE: ABSCESS ENTR: 07/23/[address] [facility] [address]: Akhil Oneil M.D. [facility]: Erica GORMAN Joseph N., M.D. ORDERED: DEP LISAD CUL/SMR COMMENTS: Has Specimen Been Obtained/Collected? Y Procedure Result Verified Site GRAM STAIN Final 07/23/17 RESULT MANY POLYS MODERATE GRAM POSITIVE COCCI DEEP WOUND CULTURE Preliminary 07/25/17-850 Organism 1 STAPH. AUREUS MRSA QUANITY MANY SENS SENSITIVITY TO FOLLOW Organism 2 GRAM NEGATIVE BACILLI QUANITY RARE SENS SENSITIVITY TO FOLLOW SENSITIVITY RESULT INDICATES A METHICILLIN RESISTANT STAPH. AUREUS. PHONED TO CARIN VASQUEZ ON 07/25/17 AT 0705 BY Chapincito Amado. Results were verbalized back to ELOY. RESULTS WERE ALSO CALLED TO [facility] INFECTION CONTROL ANSWERING MACHINE ON 07/25/17 BY ELOY. 1. STAPH. AUREUS MRSA Target Route Dose RX AB Cost M.I.C. IQ ------ ----- ------ -- ------ -------- - ------ TRIMET/SULFA S <=0.5/ 9.5 * OXACILLIN R >2 VANCOMYCIN S 1 ERYTHROMYCIN R >4 TETRACYCLINE S <=4 CLINDAMYCIN S <=0.5 DAPTOMYCIN S <=0.5 RIFAMPIN I 2 Plan Vancomycin * Trough level of 16.1 mcg/mL is therapeutic * Continue dose of 1250 mg IV every 8 hours * Goal trough level for MRSA abscess with JOS = 1 : 15-20 mcg/mL * Repeat trough level ordered for: 07/27/17 prior to the [address] Dyer regarding new culture results showing gram negative bacilli in addition to the MRSA. She has consulted ID and will add coverage if they don't see patient soon. Pharmacy will continue to follow and will adjust dose/frequency as necessary. Thank you.
--- NOTE | 2017-07-25 12:24 | Orthopedic Progress Note ---
Orthopedic Progress Note Date of Service Jul 25, 2017. Subjective Additional Notes: discussion with patient, reviewed pictures from yesterday, feels the erythema is improving compared to yesterday. Objective N/V intact, A&O x3 NVDI. slight decrease in erythema when compared to yesterday. she is able to move her elbow with less pain Date Time Temp Pulse Resp B/P (MAP) Pulse Ox O2 Delivery O2 Flow Rate FiO2 07/25/17 08:00 Room Air 07/25/17 07:25 36.8 96 22 114/76 (89) 99 Room Air 07/25/17 00:05 36.9 100 18 104/69 (81) 98 Room Air 07/25/17 00:00 Room Air 07/24/17 16:10 36.8 95 18 122/79 (93) 97 Room Air 07/24/17 16:00 Room Air Assessment & Plan Assessment: Right antecubital fossa abscess- showing clinical improvement compared to yesterday. will allow a normal diet today but keep NPO after MN tonight for recheck in am for possible I&D. continue with IV antibiotics, follow along with wound care for packing. if worsening will plan for I&D tomorrow .ID for recommendations on antibiotics.
--- NOTE | 2017-07-25 13:44 | Progress Note ---
Progress Note Date of Service Jul 25, 2017. Progress Note ID Consult Dictated #[id number] A/P: 1. RUE Abscess -polymicrobial 2. Leukocytosis - resolved -Continue vanco, will restart zosyn pending Id/sensitivity of gnr -blood culture negative to date -would offer HIV testing if not already done -Will follow, thank you
--- NOTE | 2017-07-25 14:42 | INFECT. DISEASE CONSULTATION ---
DATE OF CONSULTATION: 07/25/2017 HISTORY OF PRESENT ILLNESS: This is a 27-year-old female who was admitted to the hospital on the after she followed with her primary care physician. She was recently in the ER last week after she had right arm swelling. She did have an ultrasound done in the Emergency Room that showed a thrombophlebitis of the right cephalic vein. She was given a prescription for anticoagulation and received one dose of Xarelto in the Emergency Room. Per the H&P, she has yet to fill her prescription on an outpatient basis and has not been on any anticoagulation. Throughout the weekend, she noticed worsening right upper extremity swelling, pain and erythema. This was especially pronounced at the antecubital fossa. She states she saw her primary care physician on the and they recommended that she come to the Emergency Room. She did have an ultrasound in the Emergency Room, which continued to show thrombophlebitis, but also on ultrasound, she had a 4.7 x 2.7 x 3 cm complex fluid collection consistent with abscess. She states that she did have significant change in the appearance of her arm from both ER trips and was able to show a photograph of this on herself. She did have a bedside I&D and packing is in place. She continues to state that there is drainage and she has not had significant change from her initial drainage procedure. She continues to have pain. She denies any fevers or chills and states she did not have any fevers or chills at home. Her sed rate is elevated at 34. Her white blood cell count was initially 13.8 and has improved to 8. She was placed on vancomycin and did receive a one-time dose of Zosyn in the ER. She remains only on vancomycin. She has been afebrile since admission and urinalysis and urine test were negative in the ER. Her drug screen was positive for opiates. She did shave a history of IV drug abuse. Her blood cultures were drawn in the ER and are negative x2 sets. A wound culture done in the ER is growing MRSA, which is sensitive to vancomycin and also gram negative khari, which is yet to be identified. She states she would prefer to go to the operating room and have her abscess drained as she believes this will lead her to a quicker discharge. She is being followed closely by orthopedic surgery. She is to be made n.p.o. overnight and she will be reassessed in the morning. She currently denies fever, chills, headache, shortness of breath, chest pain, nausea, vomiting, diarrhea or abdominal pain. She has no urinary symptoms. She is tolerating antibiotics well. Her remaining review of systems is unremarkable. PAST MEDICAL HISTORY: Significant for migraine headaches, asthma, mood disorder, recent thrombophlebitis, hepatitis C for which she has not received treatment and a history of IV drug abuse. She does deny recent IV drug abuse per the H&P; however, her urine drug screen was positive. PAST SURGICAL HISTORY: Significant for tonsillectomy, stomach lesion repair, nerve decompression and dental surgery. ALLERGIES: SHE HAS ALLERGIES TO AZITHROMYCIN, MACROLIDES AND SULFA. FAMILY HISTORY: Noncontributory. SOCIAL HISTORY: Significant for current tobacco use. She denies any alcohol use. She does have a history of IV drug use. She states she has a 6-year-old son and she has been living with her grandmother. She denies any sick contacts at home. CURRENT MEDICATIONS: Include Requip, nicotine patch, Toradol, Neurontin, Protonix, Mobic, Lovenox, vancomycin, Seroquel, Tylenol, Advil, Flexeril, Flovent and Toradol. PHYSICAL EXAMINATION: VITAL SIGNS: She has been afebrile since admission to the hospital, pulse 96, respiratory rate 22, blood pressure 114/76, and oxygen saturation is 99% on room air. GENERAL: She is awake, alert and oriented x3. She is in no acute distress. HEENT: Mucous membranes are moist. Dentition is poor. Extraocular muscles are intact. HEART: Regular. LUNGS: Clear. ABDOMEN: Soft. There is no edema. SKIN: Without rash. Examination of the right antecubital fossa reveals minimal swelling. EXTREMITIES: There is significantly improved erythema compared to the picture on her cellphone. Packing is in place. There is minimal drainage on her dressing. Sensation is intact. LABORATORY STUDIES: CBC today reveals a white blood cell count of 8.0, hemoglobin 10.2, and platelets are 265. Sed rate is 34. Chemistry panel reveals a sodium of 143, potassium 3.9, chloride 113, bicarbonate 25, BUN 7, creatinine 0.5, and glucose is 92. Lactic acid was normal. Procalcitonin was 0.8. CRP was 13. UA is negative. Urine drug screen is positive. test was negative. July 23 blood cultures are no growth to date x2 sets. July 23 arm culture is growing MRSA bursa with sensitivities to clindamycin, daptomycin, tetracycline, Bactrim and vancomycin and a gram negative khari, which is not yet identified. Imaging is as above. A chest x-ray was unremarkable. ASSESSMENT AND PLAN: Polymicrobial abscess, likely secondary to intravenous drug use. Zosyn will be added to her vancomycin pending final cultures. Hopefully, she will be able to be discharged home on oral antibiotics. Ortho is following for management and consideration of additional debridement if needed. She will likely need a minimum of 3 weeks of antibiotics. A PICC line will not be placed in this patient secondary to history of IV drug use. She does have a history of hepatitis C, but I do not feel she would be a candidate for treatment at this time with continued positive urine drug screen. I would also offer HIV testing if this has not been done already. Thank you for this consultation.
[2017-07-25 15:02] VITALS: BP 119/78; PULSE 101; TEMP 37.1; O2SAT 98
[2017-07-25] MEDS: ROPINIROLE HCL 1 MG TAB PO SCH (21:32)
[2017-07-25] MEDS: QUETIAPINE FUMARATE 200 MG TAB PO SCH (21:33)
[2017-07-26] VITALS: BP 121/77; PULSE 101; TEMP 36.9; O2SAT 97
[2017-07-26] MEDS: VANCOMYCIN INJ 1,250 MG in SODIUM CHLORIDE 0.9% 250ML 250 ML IV SCH ×2 (06:04→14:22)
[2017-07-26 07:03] LABS: HEMATOCRIT 31.6 % (37-47); HEMOGLOBIN 10.9 g/dL (12.0-16.0); MEAN CELL VOLUME 83.2 fL (80-100); MEAN CORPUSCULAR HEMOGLOBIN 28.7 pg (25-34); MEAN CORPUSCULAR HGB CONC 34.5 g/dl (32-36); MEAN PLATELET VOLUME 9.8 fL (7.4-10.4); PLATELET COUNT 328 K/uL (130-400); RED CELL DISTRIBUTION WIDTH CV 13.6 % (11.5-14.5); RED CELL DISTRIBUTION WIDTH SD 41.2 fL (36.4-46.3); WHITE BLOOD COUNT 7.34 K/uL (4.8-10.8)
[2017-07-26 07:39] LABS: CALCIUM 8.5 mg/dl (8.5-10.1); CREATININE 0.72 mg/dl (0.60-1.20); POTASSIUM 3.6 mmol/L (3.5-5.1)
[2017-07-26] MEDS: ENOXAPARIN 40 MG/0.4 ML SYR SQ SCH (08:00)
[2017-07-26] MEDS: NICOTINE 14 MG/24 HR TDSY TD SCH (08:00)
[2017-07-26] MEDS: PANTOprazole SOD 40 MG TAB PO SCH (08:41)
[2017-07-26] MEDS: GABAPENTIN 800 MG TAB PO SCH ×3 (08:41→20:21)
[2017-07-26] MEDS: MELOXICAM 7.5 MG TAB PO SCH (08:42)
[2017-07-26 09:10] VITALS: BP 127/85; PULSE 91; TEMP 36.8; O2SAT 99
[2017-07-26] MEDS: KETOROLAC TROMETHAMINE 30 MG/ML VIAL IV PRN ×2 (10:56→20:16)
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
[2017-07-26] MEDS: CIPROFLOXACIN 500 MG TAB PO SCH ×2 (15:01→20:22)
--- NOTE | 2017-07-26 15:01 | Orthopedic Progress Note ---
Orthopedic Progress Note Date of Service Jul 26, 2017. Subjective Additional Notes: Pt states her arm "feels about the same" Objective Moderate swelling, no significant erythema or drainage, benzol still operator, firm, indurated 5 x 5 cm area proximal to antecubital fossa Date Time Temp Pulse Resp B/P (MAP) Pulse Ox O2 Delivery O2 Flow Rate FiO2 07/26/17 09:10 36.8 91 17 127/85 (99) 99 Room Air 07/26/17 08:00 Room Air 07/26/17 00:00 36.9 101 18 121/77 (92) 97 Room Air 07/26/17 00:00 Room Air 07/25/17 16:00 Room Air 07/25/17 15:02 37.1 101 22 119/78 (92) 98 Room Air Laboratory Results 24 Hours: Test 07/26/17 06:39 Hematocrit 31.6 % Hemoglobin 10.9 g/dL Assessment & Plan Assessment: 27 yo female stable withRight antecubital fossa abscess- Will order MRI and will allow a normal diet today but keep NPO after MN tonight for recheck in am for possible I&D. continue with IV antibiotics, follow along with wound care for packing. if worsening will plan for I&D tomorrow .ID for recommendations on antibiotics.
[2017-07-26] MEDS ORDERED: GADAVIST IV PRN (16:45)
--- NOTE | 2017-07-26 16:56 | DIAGNOSTIC IMAGING REPORT ---
RIGHT ELBOW MRI HISTORY: Follow-up abscess right anterior distal humerus TECHNIQUE: Multiplanar multisequence MRI of the right elbow was performed both before and after the intravenous ministration of contrast. COMPARISON STUDY: Right upper extremity ultrasound 07/23/2017. FINDINGS: Sagittal views demonstrate an open wound at the antecubital fossa containing hypointense material which may represent a combination of gas and/or packing material. No drainable fluid collections at this time. Edema and enhancement seen throughout the antecubital fossa subcutaneous soft tissues. Thrombosed superficial vein at this location. The enhancement extends to and involves the deep fascial plane at the anterior border of the musculotendinous junction of the biceps. Normal marrow signal intensity within the visualized osseous structures. No evidence for a mild. Mild subcutaneous edema throughout the elbow. Abnormal area of enhancement/edema at the antecubital fossa measures approximately 3.0 x 1.8 cm. This favors residual cellulitis/phlegmon. No elbow effusion. IMPRESSION: 1. No drainable fluid collections identified in the antecubital fossa. 2. Abnormal area of enhancement/edema at the antecubital fossa which measures approximately 3.0 x 1.8 cm. This is consistent with a residual cellulitis/phlegmon. This primarily involves the subcutaneous fat but does extend to and involve the deep fascial plane at the anterior border of the musculotendinous junction of the biceps. 3. There is an open wound at the antecubital fossa containing hypointense material which may represent a combination of gas and/or packing material. 4. Redemonstration of the thrombosed superficial vein at the antecubital fossa. 5. No elbow effusion. No evidence for osteomyelitis. Electronically signed by: Booker Fabian M.D. 07/26/2017 4:55 PM Dictated Date/Time: 07/26/2017 4:47 PM
[2017-07-26] MEDS: DOXYCYCLINE HYCLATE 100 MG CAP PO SCH (20:20)
[2017-07-26] MEDS: QUETIAPINE FUMARATE 200 MG TAB PO SCH (20:23)
[2017-07-26] MEDS: ROPINIROLE HCL 1 MG TAB PO SCH (20:24)
--- NOTE | 2017-07-26 22:14 | Progress Note ---
Medicine Progress Note Date & Time of Visit: Jul 26, 2017 at 1500. Subjective 27 yo F IVDU with h/o superficial clot in arm [employer] presents with worsening pain and abscess in AC fossa. Pt was seen in ER and received an IV in that spot approx 5 days prior to the development of erthythema and soreness. She went to the eR a few days later when she was found with a superficial clot and placed on 6 weeks of Xarelto. She only took one dose prior to needing repeat ER visit with I&D and subsequent admission. She continues to improve and deny fevers or chills. Objective Last 8 Hrs Date Time Temp Pulse Resp B/P (MAP) Pulse Ox O2 Delivery O2 Flow Rate FiO2 07/26/17 20:07 Room Air Physical Exam: GEN: WNWD, NAD, alert and appropriate HEENT: NC/AT, normal sclerae, MMM CARDIO: reg rate, S1/2 heard without m/g/r LUNGS: CTA bilaterally, no crackles, rales or wheezes, good diaphragmatic excursion ABD: soft, non-tender, non-distended, no rebound or guarding EXTREMITY: RP and DP palpable 2+ bilat, no LE swelling or edema, extremities are warm and well-perfused RUE: just superior to AC fossa-packing in place covering with dressing. No surrounding erythema, no drainage from wound noted. NEURO: CN 2-12 grossly intact MUSC: moves all extremities equally, no gross focal deficits SKIN: warm and dry and wound as above. Laboratory Results: 07/26/17 06:39 07/26/17 06:39 Test 07/23/17 14:48 07/23/17 18:30 07/23/17 21:18 07/24/17 06:56 Erythrocyte Sedimentation Rate 34 mm/hr (0-21) Magnesium Level 2.1 mg/dl (1.8-2.4) Total Bilirubin 0.6 mg/dl (0.2-1) Direct Bilirubin 0.2 mg/dl (0-0.2) Aspartate Amino Transf (AST/SGOT) 42 U/L (15-37) Alanine Aminotransferase (ALT/SGPT) 39 U/L (12-78) Alkaline Phosphatase 115 U/L (45-117) C-Reactive Protein 13.00 mg/dl (0-0.29) Total Protein 7.9 gm/dl (6.4-8.2) Albumin 3.8 gm/dl (3.4-5.0) Lipase 82 U/L (73-393) Procalcitonin 0.89 ng/ml (0-0.5) Thyroid Stimulating Hormone (TSH) 1.540 uIu/ml (0.300-4.500) Urine Color YELLOW Urine Appearance CLEAR (CLEAR) Urine pH 6.0 (4.5-7.5) Urine Specific [place] 1.009 (1.000-1.030) Urine Protein NEG (NEG) Urine Glucose (UA) NEG (NEG) Urine Ketones NEG (NEG) Urine Occult Blood NEG (NEG) Urine Nitrite NEG (NEG) Urine Bilirubin NEG (NEG) Urine Urobilinogen NEG (NEG) Urine Leukocyte Esterase NEG (NEG) Urine WBC (Auto) 1-5 /hpf (0-5) Urine RBC (Auto) 0-4 /hpf (0-4) Urine Hyaline Casts (Auto) 1-5 /lpf (0-5) Urine Epithelial Cells (Auto) >30 /lpf (0-5) Urine Bacteria (Auto) NEG (NEG) Urine Test NEG (NEG) Urine Opiates Screen POS (NEG) Urine Codeine Confirmation (GC/MS) NEGATIVE NG/ML (CUTOFF=50) Urine Morphine Confirm (GC/MS) 485 NG/ML (CUTOFF=50) Urine Hydrocodone Confirm (GC/MS) NEGATIVE NG/ML (CUTOFF=50) Urine Norhydrocodone NEGATIVE NG/ML (CUTOFF=50) Urine Noroxycodone NEGATIVE NG/ML (CUTOFF=50) Urine Oxycodone Confirm (GC/MS) NEGATIVE NG/ML (CUTOFF=50) Urine Oxymorphone Confirm (GC/MS) NEGATIVE NG/ML (CUTOFF=50) Urine Methadone, Qualitative NEG (NEG) Urine Hydromorphone Confirm (GC/MS) NEGATIVE NG/ML (CUTOFF=50) Urine Barbiturates NEG (NEG) Urine Phencyclidine (PCP) Level NEG (NEG) Ur Amphetamine/Methamphetamine NEG (NEG) MDMA (Ecstasy) Screen NEG (NEG) Urine Benzodiazepines Screen NEG (NEG) Urine Cocaine Metabolite NEG (NEG) Urine Marijuana (THC) NEG (NEG) Lactic Acid Level 1.6 mmol/L (0.4-2.0) Bedside Glucose 97 mg/dl (70-90) Test 07/24/17 07:16 07/25/17 05:37 07/26/17 06:39 Immature Granulocyte % (Auto) 0.2 % White Blood Count 8.08 K/uL (4.8-10.8) Red Blood Count 3.65 M/uL (4.2-5.4) 3.80 M/uL (4.2-5.4) Hemoglobin 10.2 g/dL (12.0-16.0) Hematocrit 30.8 % (37-47) Mean Corpuscular Volume 84.4 fL (80-100) 83.2 fL (80-100) Mean Corpuscular Hemoglobin 27.9 pg (25-34) 28.7 pg (25-34) Mean Corpuscular Hemoglobin Concent 33.1 g/dl (32-36) 34.5 g/dl (32-36) Platelet Count 265 K/uL (130-400) Mean Platelet Volume 10.0 fL (7.4-10.4) 9.8 fL (7.4-10.4) Neutrophils (%) (Auto) 62.7 % Lymphocytes (%) (Auto) 27.6 % Monocytes (%) (Auto) 8.0 % Eosinophils (%) (Auto) 1.1 % Basophils (%) (Auto) 0.4 % Neutrophils # (Auto) 5.06 K/uL (1.4-6.5) Lymphocytes # (Auto) 2.23 K/uL (1.2-3.4) Monocytes # (Auto) 0.65 K/uL (0.11-0.59) Eosinophils # (Auto) 0.09 K/uL (0-0.5) Basophils # (Auto) 0.03 K/uL (0-0.2) Immature Granulocyte # (Auto) 0.02 K/uL (0.00-0.02) Prothrombin Time 10.8 SECONDS (9.0-12.0) Prothromb Time International Ratio 1.0 (0.9-1.1) Vancomycin Level Trough 16.1 mcg/ml (SEE COMMENT) RDW Standard Deviation 41.2 fL (36.4-46.3) RDW Coefficient of Variation 13.6 % (11.5-14.5) Anion Gap 7.0 mmol/L (3-11) Est Creatinine Clear Calc Drug Dose 118.3 ml/min Estimated GFR () 134.0 Estimated GFR (Non- 115.6 BUN/Creatinine Ratio 20.5 (10-20) Calcium Level 8.5 mg/dl (8.5-10.1) Date/Time Source Procedure Growth Status 07/23/17 14:57 Blood Blood Culture - Preliminary NO GROWTH TO DATE. Resulted 07/23/17 20:23 Abscess Arm , Right Upper Gram Stain - Final Complete 07/23/17 20:23 Wound Culture - Final Staph. Aureus Mrsa Pseudomonas Aeruginosa Complete Last 24 Hours Test 07/26/17 06:39 White Blood Count 7.34 K/uL Red Blood Count 3.80 M/uL Hemoglobin 10.9 g/dL Hematocrit 31.6 % Mean Corpuscular Volume 83.2 fL Mean Corpuscular Hemoglobin 28.7 pg Mean Corpuscular Hemoglobin Concent 34.5 g/dl RDW Standard Deviation 41.2 fL RDW Coefficient of Variation 13.6 % Platelet Count 328 K/uL Mean Platelet Volume 9.8 fL Sodium Level 144 mmol/L Potassium Level 3.6 mmol/L Chloride Level 112 mmol/L Carbon Dioxide Level 25 mmol/L Anion Gap 7.0 mmol/L Blood Urea Nitrogen 15 mg/dl Creatinine 0.72 mg/dl Est Creatinine Clear Calc Drug Dose 118.3 ml/min Estimated GFR () 134.0 Estimated GFR (Non- 115.6 BUN/Creatinine Ratio 20.5 Random Glucose 84 mg/dl Calcium Level 8.5 mg/dl Assessment & Plan 27 yo F IVDU with h/o superficial clot in arm [employer] presents with worsening pain and abscess in AC fossa. Pt was seen in ER and received an IV in that spot approx 5 days prior to the development of erthythema and soreness. She went to the eR a few days later when she was found with a superficial clot and placed on 6 weeks of Xarelto. She only took one dose prior to needing repeat ER visit with I&D and subsequent admission. She continues to improve and deny fevers or chills. 1. Sepsis 2/2 RUE abscess. Resuscitated and Vanc/Zosyn switched to PO. Wound culture reveals MRSA and Pseudomonas. PEr ID will be 21 day course. MRI to rule out need for washout. If negative, will likely go home tomorrow. Toradol controlling pain. h/o IV drug use, so will avoid narcotics. 2. Thrombophlebitis-small clot in superficial vein in RUE. PT wishes to do Xarelto for 6 weeks. Will initiate this once the wound is reassessed and OK with surgery. 3. h/o mood disorder-stable. Cont home meds 4 Smoker-declined nicoderm patch. There is concern that patient continues to go outside to smoke and with IVDU history, IV was removed. 5. Hepatitis antibody positivity as per records. Outpatient HCV RNA labwork already requested. DVT proph-Lovenox Full Code Dispo-to home in am barring any need for washout. Yas Dyer DO [facility] Hospitalist Consultants: Wound care Ortho ID Current Inpatient Medications: Current Inpatient Medications Medications (Trade) Dose Ordered Sig/Ya Route Start Time Stop Time Status Last Admin Dose Admin Ketorolac Tromethamine (Toradol Inj) 15 mg Q6H PRN IV. 07/23/17 21:15 07/28/17 21:14 07/25/17 15:16 15 MG Acetaminophen (Tylenol Tab) 650 mg Q4H PRN PO 07/23/17 23:15 08/22/17 23:14 07/25/17 00:15 650 MG Prochlorperazine Edisylate 5 mg/ Syringe 5 ml @ 5 mls/min Q6H PRN IV 07/23/17 23:15 08/22/17 23:14 Nicotine (Nicoderm Cq 14MG Patch) 1 patch QAM TD 07/24/17 08:00 08/23/17 08:59 Ibuprofen (Advil Tab) 400 mg Q6H PRN PO 07/23/17 23:15 08/22/17 23:14 Miscellaneous (Remove Nicoderm Patch) 1 ea HS N/A 07/24/17 21:00 08/23/17 20:59 Cyclobenzaprine HCl (Flexeril Tab) 10 mg BID PRN PO 07/23/17 23:15 08/22/17 23:14 Fluticasone Propionate (Flovent Hfa 110MCG Inhaler) 2 puffs BID PRN INH 07/23/17 23:15 08/22/17 23:14 Gabapentin (Neurontin Tab) 800 mg TID PO 07/24/17 08:00 08/23/17 08:59 07/26/17 15:00 800 MG Pantoprazole Sodium (Protonix Tab) 40 mg DAILY PO 07/24/17 08:00 08/23/17 08:59 07/26/17 08:41 40 MG Ropinirole HCl (Requip Tab) 1 mg HS PO 07/25/17 01:00 08/24/17 00:59 07/25/17 21:32 1 MG Meloxicam (Mobic Tab) 15 mg DAILY PO 07/24/17 08:00 08/23/17 08:59 07/26/17 08:42 15 MG Quetiapine Fumarate (seroQUEL TAB) 400 mg HS PO 07/24/17 00:30 08/23/17 00:29 07/25/17 21:33 400 MG Enoxaparin Sodium (Lovenox Inj) 40 mg DAILY SQ 07/24/17 08:00 08/23/17 07:59 Ketorolac Tromethamine (Toradol Inj) 30 mg Q6H PRN IV 07/24/17 13:30 07/29/17 13:29 07/26/17 10:56 30 MG Ciprofloxacin (Cipro Tab) 500 mg BID PO 07/26/17 11:00 08/05/17 19:59 07/26/17 15:01 500 MG Doxycycline Hyclate (Vibramycin Cap) 100 mg BID PO 07/26/17 20:00 08/05/17 19:59 Gadobutrol (Gadavist) 8 mmol UD PRN IV 07/26/17 16:45 07/30/17 16:44
[2017-07-27 00:42] VITALS: BP 99/64; PULSE 105; TEMP 36.9; O2SAT 95
[2017-07-27] MEDS ORDERED: VANCOMYCIN TROUGH ONE (05:30)
[2017-07-27 07:19] VITALS: BP 105/64; PULSE 83; TEMP 36.6; O2SAT 96
[2017-07-27 08:00] VITALS: O2SAT 96
[2017-07-27] MEDS: GABAPENTIN 800 MG TAB PO SCH ×3 (08:00→20:43)
[2017-07-27] MEDS: NICOTINE 14 MG/24 HR TDSY TD SCH (08:00)
[2017-07-27] MEDS: PANTOprazole SOD 40 MG TAB PO SCH (08:00)
[2017-07-27] MEDS: MELOXICAM 7.5 MG TAB PO SCH (08:00)
[2017-07-27] MEDS: ENOXAPARIN 40 MG/0.4 ML SYR SQ SCH (08:00)
[2017-07-27] MEDS: CIPROFLOXACIN 500 MG TAB PO SCH ×2 (09:34→20:43)
[2017-07-27] MEDS: DOXYCYCLINE HYCLATE 100 MG CAP PO SCH ×2 (09:35→20:43)
[2017-07-27] MEDS: KETOROLAC TROMETHAMINE 30 MG/ML VIAL IV PRN ×2 (09:37→19:35)
--- NOTE | 2017-07-27 15:35 | History & Physical Bridge Note ---
H&P Re-Evaluation Bridge Note: I have examined the patient, reviewed the History & Physical and in the interval since the performance of the History & Physical I have noted the following changes of clinical significance: To OR for Irrigation and Debridement right elbow antecubital fossa.
[2017-07-27] MEDS ORDERED: BUPIVACAINE 0.5 % 5 MG/1 ML MPF 30ML VIAL ONE (15:48)
[2017-07-27] MEDS ORDERED: BACITRACIN 50000 UNIT VIAL ONE ×2 (15:48→16:11)
[2017-07-27] MEDS ORDERED: LIDOCAINE HCL 2% 2 ML VIAL (20MG/ML) ONE (15:52)
[2017-07-27] MEDS ORDERED: DEXAMETHASONE SOD INJ 4 MG/ML VIAL ONE (15:52)
[2017-07-27] MEDS ORDERED: FENTANYL CITRATE INJ 50 MCG/1 ML 2 ML VIAL ONE ×2 (15:52→16:25)
[2017-07-27] MEDS ORDERED: MIDAZOLAM HCL 1 MG/ML 2ML VIAL ONE (15:52)
[2017-07-27] MEDS ORDERED: PROPOFOL IV EMULSION 10 MG/ML 20 ML VIAL IV ONE (15:52)
[2017-07-27] MEDS ORDERED: ONDANSETRON INJ 2 MG/ML 2 ML VIAL ONE (15:52)
[2017-07-27] MEDS ORDERED: ATROPINE SULFATE 0.1 MG/ML 5ML SYR IV PRN (16:00)
[2017-07-27] MEDS ORDERED: EpHEDrine SULFATE INJ 50 MG/ML AMP IV PRN (16:00)
[2017-07-27] MEDS ORDERED: ONDANSETRON INJ 2 MG/ML 2 ML VIAL IV PRN (16:00)
[2017-07-27] MEDS ORDERED: PROMETHAZINE HCL INJ 12.5 MG in SODIUM CHLORIDE 0.9% 50ML 50 ML IV PRN (16:00)
--- NOTE | 2017-07-27 17:08 | [facility] Post Operative Brief Note ---
Immediate Operative Summary Operative Date Jul 27, 2017. Pre-Operative Diagnosis Abscess of right antecubital fossa, Phlegmon right anterior elbow Post-Operative Diagnosis Abscess of right antecubital fossa, Phlegmon right anterior elbow Procedure(s) Performed 1. Right Incision and drainage of antecubital fossa, 2. Debridement of fascia right elbow, 3. Excision of phlegmon right elbow Surgeon Dr Hyman Quill Stripper Surgeon(s) none Estimated Blood Loss 10 ml Findings Consistent with Post-Op Diagnosis Specimens Routine culture and sensitivity , anaerobic culture gram stain - Deep Abscess of antecubital fossa Drains 1/2" iodoform gauze drain Anesthesia Type General (local) Complication(s) none Disposition Accompanied Pt To Recover: no Disposition: Recovery Room / PACU
[2017-07-27] MEDS: FENTANYL CITRATE INJ 50 MCG/1 ML 2 ML VIAL IV PRN ×4 (17:16→17:31)
[2017-07-27] MEDS: HYDROmorphone INJ 1 MG/ML SYR IV PRN ×4 (17:32→17:47)
--- NOTE | 2017-07-27 17:53 | Anesthesiology Progress Note ---
Anesthesia Post Op Note Date & Time Jul 27, 2017 at 17:53 Vital Signs Pain Intensity: 6 Vital Signs Past 12 Hours Date Time Temp Pulse Resp B/P (MAP) Pulse Ox O2 Delivery O2 Flow Rate FiO2 07/27/17 17:50 97 16 137/95 95 Room Air 07/27/17 17:40 101 16 115/87 95 Room Air 07/27/17 17:30 98 16 120/89 95 Room Air 07/27/17 17:20 98 16 111/62 94 Oxymask 10 07/27/17 17:12 36.2 108 16 108/68 95 Oxymask 10 07/27/17 15:39 36.9 101 16 139/85 (103) 100 Room Air 07/27/17 08:00 96 Room Air 07/27/17 07:19 36.6 83 18 105/64 (78) 96 Room Air Notes Mental Status: alert / awake / arousable, participated in evaluation Pt Amnestic to Procedure: Yes Nausea / Vomiting: adequately controlled Pain: adequately controlled Airway Patency, RR, SpO2: stable & adequate BP & HR: stable & adequate Hydration State: stable & adequate Anesthetic Complications: no major complications apparent
[2017-07-27 18:19] VITALS: BP 119/80; PULSE 100; TEMP 36.6; O2SAT 98
[2017-07-27 18:20] VITALS: O2SAT 98
--- NOTE | 2017-07-27 18:23 | OPERATIVE REPORT ---
DATE OF OPERATION: 07/27/2017 PREOPERATIVE DIAGNOSES: 1. Abscess, right elbow antecubital fossa. 2. Phlegmon, right anterior elbow. POSTOPERATIVE DIAGNOSES: Same in addition to fasciitis of right elbow. PROCEDURE: 1. Irrigation and debridement, right elbow abscess antecubital fossa. 2. Debridement of fascia of the anterior elbow. 3. Excision phlegmon, right anterior elbow anterior antecubital fossa. SURGEON: Dr. Hyman. RELIEF MATE: None. ANESTHESIA: General LMA with local. SPECIMENS: Aerobic, anaerobic, Gram stain. DRAINS: Half-inch iodoform gauze. COMPLICATIONS: None. BLOOD LOSS: 10 mL. PERTINENT HISTORY: This is a 27-year-old female presented to [facility] with complains of pain, swelling and redness of her right anterior elbow. She had been seen in the Emergency Department a week before, ultrasound showed a thrombosed right cephalic vein mid to distal upper arm on the right upper extremity. She was given options of anti-inflammatories, for 6 weeks IV anticoagulation. The patient chose the latter. She had one dose of Xarelto at the ER, progressive swelling noted over the next few days. She had home dose of Xarelto since ER discharge, and she did not pick out hand the prescription from the pharmacy. She had nausea and emesis symptoms. No abdominal pain. She does have an abscess. Abscess was subsequently initially drained in the ER, received vancomycin and Zosyn. She denied any recent IV drug abuse. Last time she used needle was approximately 3 weeks prior to admission. The patient admitted to the hospital service, orthopedics was consulted and then had continued antibiotic treatment, failed to have any improvement. Ultrasound noted fluid collection with phlegmon right anterior antecubital fossa. The patient was scheduled for surgery as indicated. All potential risks, benefits, complications, alternatives, rehab, potential for incomplete relief of symptoms, need for further surgery, DVT, PE, , persistent pain, swelling, scarring, weakness, neurovascular injury, wound complications, need for further surgery discussed with the patient. The patient decided to proceed with the procedure as indicated. DESCRIPTION OF PROCEDURE: The patient was taken to operating suite, placed supine on the table. I reviewed the consent and identification of proper operative site. The patient was anesthetized and LMA was placed. The right upper extremity was then sterilely prepped and draped in usual fashion, elevated and tourniquet inflated to 250 mmHg. There was no exsanguination performed due to the nature of the infection. A 15 blade scalpel was used to make an incision in both medial and lateral to the existing incision of the anterior antecubital fossa of the right elbow. This was used to slightly expand the previously made wound, noted to be abscess fluid in the AC fossa, this was evacuated and then debrided with a rongeur. Noted to be hypertrophic fascia and the areas of obvious fasciitis were resected using a rongeur. There was noted to be hypertrophic globular scarred fast tissue and what appeared to be a well-formed phlegmon within the antecubital fossa. This was resected with a rongeur and a specimen was obtained for aerobic, anaerobic, Gram stain. This specimen was then sent to microbiology. Next, using blunt digital dissection, there was noted to be no further fluid collections or abscess pockets and then the right antecubital fossa was then irrigated copiously with sterile normal saline with bacitracin using a pulsatile lavage. After this was completed, the tourniquet was then released briefly to check for significant bleeding, there was none. Limited electrocautery was used to cauterize venous bleeders and then the tourniquet was then reinflated to 250 mmHg and the skin was then loosely closed with interrupted 3-0 nylon sutures with loose closure performed over a 0.5 inch iodoform gauze packing drain. A local injection was performed with approximately 15 mL of local anesthetic around the antecubital fossa and a sterile compressive dressing consisting of Xeroform gauze, sterile 4 x 4's, ABD pads x2, cast padding and an Adria wrap was applied. The tourniquet was released. The patient was awakened and taken to recovery in stable condition. I attest to the content of the Intraoperative Record and any orders documented therein. Any exception s are noted below.
[2017-07-27] MEDS ORDERED: NICOTINE POLACRILEX 2 MG GUM MT PRN (19:00)
--- NOTE | 2017-07-27 21:13 | Progress Note ---
Medicine Progress Note Date & Time of Visit: Jul 27, 2017 at 19:00. Subjective 27 yo F IVDU with h/o superficial clot in arm [employer] DES[employer] presents with worsening pain and abscess in AC fossa. Pt was seen in ER and received an IV in that spot approx 5 days prior to the development of erythema and soreness. She went to the ER a few days later when she was found with a superficial clot and placed on 6 weeks of Xarelto. She only took one dose prior to needing repeat ER visit with I&D and subsequent admission. She was placed on Vanc and later Zosyn to cover MRSA and Pseudomonas. ID was consulted and she was transitioned to PO antibiotics for 21 days. She continues to improve and deny fevers or chills. Orthopedics was consulted and recommended MRI, which then lead to a washout in the OR today. She is currently recovering post-op, tolerating PO with her family in the room and reporting severe pain. She is also reporting that she HAS to go outside and smoke and that she will "leave this hospital tonight if we don't let her." She has been outside multiple times likely to smoke, and with her history of recent IVDU, she was told that if she leaves, she may not go with an IV in her arm and it will not be replaced when she returns. She verbalized understanding of this and if this occurs, understands that PO meds alone will be used to control any post-operative pain she may have. Incidentally she reports that the Nicoderm patch adhesive gives her issues and she just doesn't want any nicotine replacement gum. Objective Last 8 Hrs Date Time Temp Pulse Resp B/P (MAP) Pulse Ox O2 Delivery O2 Flow Rate FiO2 07/27/17 18:20 98 Room Air 07/27/17 18:19 36.6 100 18 119/80 (93) 98 Room Air 07/27/17 18:00 36.4 88 16 122/68 95 Room Air 07/27/17 17:50 97 16 137/95 95 Room Air 07/27/17 17:40 101 16 115/87 95 Room Air 07/27/17 17:30 98 16 120/89 95 Room Air 07/27/17 17:20 98 16 111/62 94 Oxymask 10 07/27/17 17:12 36.2 108 16 108/68 95 Oxymask 10 07/27/17 15:39 36.9 101 16 139/85 (103) 100 Room Air Physical Exam: GEN: WNWD, NAD, alert and appropriate HEENT: NC/AT, normal sclerae, MMM CARDIO: reg rate, S1/2 heard without m/g/r LUNGS: CTA bilaterally, no crackles, rales or wheezes, good diaphragmatic excursion ABD: soft, non-tender, non-distended, no rebound or guarding EXTREMITY: RP and DP palpable 2+ bilat, no LE swelling or edema, extremities are warm and well-perfused RUE: upper arm is wrapped significantly postop covered with dressing that is clean, dry and intact. NEURO: CN 2-12 grossly intact MUSC: moves all extremities equally, no gross focal deficits SKIN: warm and dry and wound as above. Laboratory Results: 07/26/17 06:39 07/26/17 06:39 Test 07/23/17 14:48 07/23/17 18:30 07/23/17 21:18 07/24/17 06:56 Erythrocyte Sedimentation Rate 34 mm/hr (0-21) Magnesium Level 2.1 mg/dl (1.8-2.4) Total Bilirubin 0.6 mg/dl (0.2-1) Direct Bilirubin 0.2 mg/dl (0-0.2) Aspartate Amino Transf (AST/SGOT) 42 U/L (15-37) Alanine Aminotransferase (ALT/SGPT) 39 U/L (12-78) Alkaline Phosphatase 115 U/L (45-117) C-Reactive Protein 13.00 mg/dl (0-0.29) Total Protein 7.9 gm/dl (6.4-8.2) Albumin 3.8 gm/dl (3.4-5.0) Lipase 82 U/L (73-393) Procalcitonin 0.89 ng/ml (0-0.5) Thyroid Stimulating Hormone (TSH) 1.540 uIu/ml (0.300-4.500) Urine Color YELLOW Urine Appearance CLEAR (CLEAR) Urine pH 6.0 (4.5-7.5) Urine Specific [place] 1.009 (1.000-1.030) Urine Protein NEG (NEG) Urine Glucose (UA) NEG (NEG) Urine Ketones NEG (NEG) Urine Occult Blood NEG (NEG) Urine Nitrite NEG (NEG) Urine Bilirubin NEG (NEG) Urine Urobilinogen NEG (NEG) Urine Leukocyte Esterase NEG (NEG) Urine WBC (Auto) 1-5 /hpf (0-5) Urine RBC (Auto) 0-4 /hpf (0-4) Urine Hyaline Casts (Auto) 1-5 /lpf (0-5) Urine Epithelial Cells (Auto) >30 /lpf (0-5) Urine Bacteria (Auto) NEG (NEG) Urine Test NEG (NEG) Urine Opiates Screen POS (NEG) Urine Codeine Confirmation (GC/MS) NEGATIVE NG/ML (CUTOFF=50) Urine Morphine Confirm (GC/MS) 485 NG/ML (CUTOFF=50) Urine Hydrocodone Confirm (GC/MS) NEGATIVE NG/ML (CUTOFF=50) Urine Norhydrocodone NEGATIVE NG/ML (CUTOFF=50) Urine Noroxycodone NEGATIVE NG/ML (CUTOFF=50) Urine Oxycodone Confirm (GC/MS) NEGATIVE NG/ML (CUTOFF=50) Urine Oxymorphone Confirm (GC/MS) NEGATIVE NG/ML (CUTOFF=50) Urine Methadone, Qualitative NEG (NEG) Urine Hydromorphone Confirm (GC/MS) NEGATIVE NG/ML (CUTOFF=50) Urine Barbiturates NEG (NEG) Urine Phencyclidine (PCP) Level NEG (NEG) Ur Amphetamine/Methamphetamine NEG (NEG) MDMA (Ecstasy) Screen NEG (NEG) Urine Benzodiazepines Screen NEG (NEG) Urine Cocaine Metabolite NEG (NEG) Urine Marijuana (THC) NEG (NEG) Lactic Acid Level 1.6 mmol/L (0.4-2.0) Bedside Glucose 97 mg/dl (70-90) Test 07/24/17 07:16 07/25/17 05:37 07/26/17 06:39 Immature Granulocyte % (Auto) 0.2 % White Blood Count 8.08 K/uL (4.8-10.8) Red Blood Count 3.65 M/uL (4.2-5.4) 3.80 M/uL (4.2-5.4) Hemoglobin 10.2 g/dL (12.0-16.0) Hematocrit 30.8 % (37-47) Mean Corpuscular Volume 84.4 fL (80-100) 83.2 fL (80-100) Mean Corpuscular Hemoglobin 27.9 pg (25-34) 28.7 pg (25-34) Mean Corpuscular Hemoglobin Concent 33.1 g/dl (32-36) 34.5 g/dl (32-36) Platelet Count 265 K/uL (130-400) Mean Platelet Volume 10.0 fL (7.4-10.4) 9.8 fL (7.4-10.4) Neutrophils (%) (Auto) 62.7 % Lymphocytes (%) (Auto) 27.6 % Monocytes (%) (Auto) 8.0 % Eosinophils (%) (Auto) 1.1 % Basophils (%) (Auto) 0.4 % Neutrophils # (Auto) 5.06 K/uL (1.4-6.5) Lymphocytes # (Auto) 2.23 K/uL (1.2-3.4) Monocytes # (Auto) 0.65 K/uL (0.11-0.59) Eosinophils # (Auto) 0.09 K/uL (0-0.5) Basophils # (Auto) 0.03 K/uL (0-0.2) Immature Granulocyte # (Auto) 0.02 K/uL (0.00-0.02) Prothrombin Time 10.8 SECONDS (9.0-12.0) Prothromb Time International Ratio 1.0 (0.9-1.1) Vancomycin Level Trough 16.1 mcg/ml (SEE COMMENT) RDW Standard Deviation 41.2 fL (36.4-46.3) RDW Coefficient of Variation 13.6 % (11.5-14.5) Anion Gap 7.0 mmol/L (3-11) Est Creatinine Clear Calc Drug Dose 118.3 ml/min Estimated GFR () 134.0 Estimated GFR (Non- 115.6 BUN/Creatinine Ratio 20.5 (10-20) Calcium Level 8.5 mg/dl (8.5-10.1) Date/Time Source Procedure Growth Status 07/23/17 14:57 Blood Blood Culture - Preliminary NO GROWTH TO DATE. Resulted 07/27/17 00:00 Drainage-Deep Elbow Right Gram Stain Pending Received 07/27/17 00:00 Drainage-Deep Elbow Right Bacterial Culture Pending Received Date/Time Source Procedure Growth Status 07/27/17 00:00 Drainage-Deep Elbow Right Gram Stain Pending Received 07/27/17 00:00 Drainage-Deep Elbow Right Bacterial Culture Pending Received Assessment & Plan 27 yo F IVDU with h/o superficial clot in arm [employer] presents with worsening pain and abscess in AC fossa. Pt was seen in ER and received an IV in that spot approx 5 days prior to the development of erythema and soreness. She went to the ER a few days later when she was found with a superficial clot and placed on 6 weeks of Xarelto. She only took one dose prior to needing repeat ER visit with I&D and subsequent admission. She was placed on Vanc and later Zosyn to cover MRSA and Pseudomonas. ID was consulted and she was transitioned to PO antibiotics for 21 days. She continues to improve and deny fevers or chills. Orthopedics was consulted and recommended MRI, which then lead to a washout in the OR today. She is currently recovering post-op, tolerating PO with her family in the room and reporting severe pain. She is also reporting that she HAS to go outside and smoke and that she will "leave this hospital tonight if we don't let her." She has been outside multiple times likely to smoke, and with her history of recent IVDU, she was told that if she leaves, she may not go with an IV in her arm and it will not be replaced when she returns. She verbalized understanding of this and if this occurs, understands that PO meds alone will be used to control any post-operative pain she may have. Incidentally she reports that the Nicoderm patch adhesive gives her issues and she just doesn't want any nicotine replacement gum. 1. Sepsis 2/2 RUE abscess. Resuscitated and Vanc/Zosyn switched to PO. Wound culture reveals MRSA and Pseudomonas. Per ID will be 21 day course. Washout in OR tonight-pt recovering very well. Dispo per Orthopedics. Once cleared by surgery will start her on Xarelto for her superficial phlebitis. 2. Thrombophlebitis-small clot in superficial vein in RUE. PT wishes to do Xarelto for 6 weeks. Will initiate this once the wound is reassessed and OK with surgery. 3. h/o mood disorder-stable. Cont home meds 4 Smoker-declined nicoderm patch. Plan as above. 5. Hepatitis antibody positivity as per records. Outpatient HCV RNA labwork already requested. DVT proph-Lovenox Full Code Dispo-per Ortho. DO Tre Gilliam Hospitalist Consultants: Wound care Ortho ID Current Inpatient Medications: Current Inpatient Medications Medications (Trade) Dose Ordered Sig/Ya Route Start Time Stop Time Status Last Admin Dose Admin Ketorolac Tromethamine (Toradol Inj) 15 mg Q6H PRN IV. 07/23/17 21:15 07/28/17 21:14 07/25/17 15:16 15 MG Acetaminophen (Tylenol Tab) 650 mg Q4H PRN PO 07/23/17 23:15 08/22/17 23:14 Future Hold 07/25/17 00:15 650 MG Prochlorperazine Edisylate 5 mg/ Syringe 5 ml @ 5 mls/min Q6H PRN IV 07/23/17 23:15 08/22/17 23:14 Nicotine (Nicoderm Cq 14MG Patch) 1 patch QAM TD 07/24/17 08:00 08/23/17 08:59 Ibuprofen (Advil Tab) 400 mg Q6H PRN PO 07/23/17 23:15 08/22/17 23:14 Miscellaneous (Remove Nicoderm Patch) 1 ea HS N/A 07/24/17 21:00 08/23/17 20:59 Cyclobenzaprine HCl (Flexeril Tab) 10 mg BID PRN PO 07/23/17 23:15 08/22/17 23:14 Fluticasone Propionate (Flovent Hfa 110MCG Inhaler) 2 puffs BID PRN INH 07/23/17 23:15 08/22/17 23:14 Gabapentin (Neurontin Tab) 800 mg TID PO 07/24/17 08:00 08/23/17 08:59 07/26/17 20:21 800 MG Pantoprazole Sodium (Protonix Tab) 40 mg DAILY PO 07/24/17 08:00 08/23/17 08:59 07/26/17 08:41 40 MG Ropinirole HCl (Requip Tab) 1 mg HS PO 07/25/17 01:00 08/24/17 00:59 07/26/17 20:24 1 MG Meloxicam (Mobic Tab) 15 mg DAILY PO 07/24/17 08:00 08/23/17 08:59 07/26/17 08:42 15 MG Quetiapine Fumarate (seroQUEL TAB) 400 mg HS PO 07/24/17 00:30 08/23/17 00:29 07/26/17 20:23 400 MG Enoxaparin Sodium (Lovenox Inj) 40 mg DAILY SQ 07/24/17 08:00 08/23/17 07:59 Ketorolac Tromethamine (Toradol Inj) 30 mg Q6H PRN IV 07/24/17 13:30 07/29/17 13:29 07/27/17 09:37 30 MG Ciprofloxacin (Cipro Tab) 500 mg BID PO 07/26/17 11:00 08/05/17 19:59 07/27/17 09:34 500 MG Doxycycline Hyclate (Vibramycin Cap) 100 mg BID PO 07/26/17 20:00 08/05/17 19:59 07/27/17 09:35 100 MG Gadobutrol (Gadavist) 8 mmol UD PRN IV 07/26/17 16:45 07/30/17 16:44 Fentanyl Citrate (Fentanyl Inj) 25 mcg Q5M PRN IV 07/27/17 16:00 07/27/17 21:00 07/27/17 17:31 25 MCG Hydromorphone HCl (Dilaudid Inj) 0.5 mg Q5M PRN IV 07/27/17 16:00 07/27/17 21:00 07/27/17 17:47 0.5 MG Ondansetron HCl (Zofran Inj) 4 mg ONE PRN IV 07/27/17 16:00 07/27/17 21:00 Promethazine HCl 12.5 mg/Sodium Chloride 50.5 ml @ 202 mls/hr ONE PRN IV 07/27/17 16:00 07/27/17 21:00 Ephedrine Sulfate (EpHEDrine SULFATE INJ) 5 mg Q5M PRN IV 07/27/17 16:00 07/27/17 21:00 Atropine Sulfate (Atropine Sulfate 0.1mg/ml Inj) 0.5 mg Q1M PRN IV 07/27/17 16:00 07/27/17 21:00 Oxycodone HCl (Roxicodone Immediate Rel Tab) 1-2 TABS FOR PAIN 1 TABLET ... Q4H PRN PO 07/27/17 16:30 08/10/17 16:29 Acetaminophen (Tylenol Tab) 1,000 mg Q8 PO 07/27/17 22:00 08/26/17 21:59 Nicotine Polacrilex (Nicorette 2MG Gum) 1 piece PRN PRN MT 07/27/17 19:00 08/26/17 18:59 UNV
[2017-07-27] MEDS ORDERED: ONDANSETRON 4MG OD TAB PO PRN (21:15)
[2017-07-27] MEDS: QUETIAPINE FUMARATE 200 MG TAB PO SCH (21:19)
[2017-07-27] MEDS: ROPINIROLE HCL 1 MG TAB PO SCH (21:19)
[2017-07-27] MEDS: ACETAMINOPHEN 500 MG TAB PO SCH (21:20)
[2017-07-27 23:00] VITALS: BP 132/89; PULSE 102; TEMP 36.8; O2SAT 98
[2017-07-28 00:05] VITALS: O2SAT 98
[2017-07-28] MEDS: ACETAMINOPHEN 500 MG TAB PO SCH ×3 (06:36→21:31)
[2017-07-28 07:02] VITALS: BP 98/58; PULSE 94; TEMP 37; O2SAT 94
[2017-07-28] MEDS: ENOXAPARIN 40 MG/0.4 ML SYR SQ SCH (08:33)
[2017-07-28] MEDS: PANTOprazole SOD 40 MG TAB PO SCH (08:51)
[2017-07-28] MEDS: GABAPENTIN 800 MG TAB PO SCH ×3 (08:51→19:53)
[2017-07-28] MEDS: DOXYCYCLINE HYCLATE 100 MG CAP PO SCH ×2 (08:51→19:59)
[2017-07-28] MEDS: MELOXICAM 7.5 MG TAB PO SCH (08:52)
[2017-07-28] MEDS: CIPROFLOXACIN 500 MG TAB PO SCH ×2 (08:53→19:59)
--- NOTE | 2017-07-28 11:23 | Orthopedic Progress Note ---
Orthopedic Progress Note Date of Service Jul 28, 2017. Subjective Post OP Day: 1 Reports: feeling well, pain controlled w PO medications, Denies: complaints Objective N/V intact, capillary refill less than 2 sec., dressing C/D/I, incision C/D/I, A &O x3 RUE: incision proximal to the antecubital fossa is well approximated. No drainage. No erythema. Packing in in place at lateral upper arm. ~8-12 inches removed today. Date Time Temp Pulse Resp B/P (MAP) Pulse Ox O2 Delivery O2 Flow Rate FiO2 07/28/17 07:02 37.0 94 16 98/58 (71) 94 07/28/17 00:05 98 Room Air 07/27/17 23:00 36.8 102 18 132/89 (103) 98 Room Air 07/27/17 18:20 98 Room Air 07/27/17 18:19 36.6 100 18 119/80 (93) 98 Room Air 07/27/17 18:00 36.4 88 16 122/68 95 Room Air 07/27/17 17:50 97 16 137/95 95 Room Air 07/27/17 17:40 101 16 115/87 95 Room Air 07/27/17 17:30 98 16 120/89 95 Room Air 07/27/17 17:20 98 16 111/62 94 Oxymask 10 07/27/17 17:12 36.2 108 16 108/68 95 Oxymask 10 07/27/17 15:39 36.9 101 16 139/85 (103) 100 Room Air Assessment & Plan Assessment: POD #1 s/p 1. Irrigation and debridement, right elbow abscess antecubital fossa. 2. Debridement of fascia of the anterior elbow. 3. Excision phlegmon, right anterior elbow anterior antecubital fossa Plan: Continue PO Doxy and Cipro. Daily dressing changes with plan to remove the rest of the packing tomorrow. Possible d/c tomorrow
[2017-07-28 16:06] VITALS: BP 116/78; PULSE 100; TEMP 37; O2SAT 99
[2017-07-28] MEDS: OXYCODONE HCL IR 5 MG TAB (IMMEDIATE RELEASE) PO PRN ×2 (16:30→20:11)
[2017-07-28] MEDS ORDERED: CALCIUM CARBONATE 500 MG CHEWABLE PO PRN (18:00)
--- NOTE | 2017-07-28 18:00 | Progress Note ---
Medicine Progress Note Date & Time of Visit: Jul 28, 2017 at 13:57. 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 Pt was seen in ER and received an IV in that spot approx 5 days prior to the development of erythema and soreness. She went to the ER a few days later when she was found with a superficial clot and placed on 6 weeks of Xarelto. She only took one dose prior to needing repeat ER visit with I&D and subsequent admission. She was placed on Vanc and later Zosyn to cover MRSA and Pseudomonas. ID was consulted and she was transitioned to PO antibiotics for 21 days. She continues to improve and deny fevers or chills. Orthopedics was consulted and recommended MRI, which then lead to a washout in the OR today. She has done well post op and only required Tylenol for pain. Tolerating PO and afebrile. Objective Last 8 Hrs Date Time Temp Pulse Resp B/P (MAP) Pulse Ox O2 Delivery O2 Flow Rate FiO2 07/28/17 08:00 Room Air 07/28/17 07:02 37.0 94 16 98/58 (71) 94 Physical Exam: GEN: WNWD, NAD, alert and appropriate HEENT: NC/AT, normal sclerae, MMM CARDIO: reg rate, S1/2 heard without m/g/r LUNGS: CTA bilaterally, no crackles, rales or wheezes, good diaphragmatic excursion ABD: soft, non-tender, non-distended, no rebound or guarding EXTREMITY: RP and DP palpable 2+ bilat, no LE swelling or edema, extremities are warm and well-perfused RUE: upper arm is wrapped significantly postop covered with dressing that is clean, dry and intact. NEURO: CN 2-12 grossly intact MUSC: moves all extremities equally, no gross focal deficits SKIN: warm and dry and wound as above. 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 Pt was seen in ER and received an IV in that spot approx 5 days prior to the development of erythema and soreness. She went to the ER a few days later when she was found with a superficial clot and placed on 6 weeks of Xarelto. She only took one dose prior to needing repeat ER visit with I&D and subsequent admission. She was placed on Vanc and later Zosyn to cover MRSA and Pseudomonas. ID was consulted and she was transitioned to PO antibiotics for 21 days. She continues to improve and deny fevers or chills. Orthopedics was consulted and recommended MRI, which then lead to a washout in the OR today. She has done well post op and only required Tylenol for pain. Tolerating PO and afebrile. 1. Sepsis 2/2 RUE abscess. Resuscitated and Vanc/Zosyn switched to PO. Wound culture reveals MRSA and Pseudomonas. Per ID will be 21 day course. Washout in OR -pt recovering very well. Dispo per Orthopedics. Once cleared by surgery will start her on Xarelto for her superficial phlebitis. 2. Thrombophlebitis-small clot in superficial vein in RUE. PT wishes to do Xarelto for 6 weeks. Will initiate this once the wound is reassessed and OK with surgery. 3. h/o mood disorder-stable. Cont home meds 4 Smoker-declined nicoderm patch. 5. Hepatitis antibody positivity as per records. Outpatient HCV RNA labwork already requested. DVT proph-Lovenox Full Code Dispo[facility]o. [facility]: Wound care Ortho ID Current Inpatient Medications: Current Inpatient Medications Medications (Trade) Dose Ordered Sig/Ya Route Start Time Stop Time Status Last Admin Dose Admin Prochlorperazine Edisylate 5 mg/ Syringe 5 ml @ 5 mls/min Q6H PRN IV 07/23/17 23:15 08/22/17 23:14 Ibuprofen (Advil Tab) 400 mg Q6H PRN PO 07/23/17 23:15 08/22/17 23:14 07/28/17 09:11 400 MG Miscellaneous (Remove Nicoderm Patch) 1 ea HS N/A 07/24/17 21:00 08/23/17 20:59 07/27/17 20:43 1 EA Cyclobenzaprine HCl (Flexeril Tab) 10 mg BID PRN PO 07/23/17 23:15 08/22/17 23:14 Fluticasone Propionate (Flovent Hfa 110MCG Inhaler) 2 puffs BID PRN INH 07/23/17 23:15 08/22/17 23:14 Gabapentin (Neurontin Tab) 800 mg TID PO 07/24/17 08:00 08/23/17 08:59 07/28/17 08:51 800 MG Pantoprazole Sodium (Protonix Tab) 40 mg DAILY PO 07/24/17 08:00 08/23/17 08:59 07/28/17 08:51 40 MG Ropinirole HCl (Requip Tab) 1 mg HS PO 07/25/17 01:00 08/24/17 00:59 07/27/17 21:19 1 MG Meloxicam (Mobic Tab) 15 mg DAILY PO 07/24/17 08:00 08/23/17 08:59 07/28/17 08:52 15 MG Quetiapine Fumarate (seroQUEL TAB) 400 mg HS PO 07/24/17 00:30 08/23/17 00:29 07/27/17 21:19 400 MG Enoxaparin Sodium (Lovenox Inj) 40 mg DAILY SQ 07/24/17 08:00 08/23/17 07:59 Ketorolac Tromethamine (Toradol Inj) 30 mg Q6H PRN IV 07/24/17 13:30 07/29/17 13:29 07/27/17 19:35 30 MG Ciprofloxacin (Cipro Tab) 500 mg BID PO 07/26/17 11:00 08/05/17 19:59 07/28/17 08:53 500 MG Doxycycline Hyclate (Vibramycin Cap) 100 mg BID PO 07/26/17 20:00 08/05/17 19:59 07/28/17 08:51 100 MG Gadobutrol (Gadavist) 8 mmol UD PRN IV 07/26/17 16:45 07/30/17 16:44 Oxycodone HCl (Roxicodone Immediate Rel Tab) 1-2 TABS FOR PAIN 1 TABLET ... Q4H PRN PO 07/27/17 16:30 08/10/17 16:29 Acetaminophen (Tylenol Tab) 1,000 mg Q8 PO 07/27/17 22:00 08/26/17 21:59 07/28/17 06:36 1,000 MG Nicotine Polacrilex (Nicorette 2MG Gum) 1 piece PRN PRN MT 07/27/17 19:00 08/26/17 18:59 Ondansetron HCl (Zofran Odt) 4 mg Q6H PRN PO 07/27/17 21:15 08/26/17 21:14 07/27/17 21:20 4 MG
[2017-07-28] MEDS: ROPINIROLE HCL 1 MG TAB PO SCH (20:11)
[2017-07-28] MEDS: QUETIAPINE FUMARATE 200 MG TAB PO SCH (20:11)
--- NOTE | 2017-07-28 22:20 | Consultant Recommendations ---
Starch Treating Assistant Recommendations Date of Service Jul 28, 2017. Starch Treating Assistant Recommendations ACTIVITY RECOMMENDATIONS: * Avoid lifting anything heavier than a medium water glass until your first post operative visit. SPECIAL CARE INSTRUCTIONS: * Your bandage should be left in place until you are seen back in the office. * Some drainage onto the dressing may occur. This is normal. * If the bandage feels excessively tight, you may loosen the elastic bandage. Then call the physician's office for further instructions. * If possible, keep your hand elevated above the level of your heart for the first 2 post operative days. You may use a sling if necessary. * You should move your fingers regularly (50-100 motions per hour) unless otherwise instructed. SPECIAL PRECAUTIONS: * If you notice increased drainage, fever over 101 degrees F. or severe, unremitting pain, call your physician/office at . * You may have been prescribed pain medication. If you experience nausea and/or skin rash, discontinue this medication and contact our office for an alternative medication. FOLLOW UP VISIT: If appointment is not already scheduled: Please call [facility] to make a follow-up appointment for in [address] Hyman's clinic at .
[2017-07-29 00:24] VITALS: BP 107/73; PULSE 107; TEMP 36.8; O2SAT 100
[2017-07-29] MEDS: ACETAMINOPHEN 500 MG TAB PO SCH ×2 (05:57→05:59)
[2017-07-29 07:40] VITALS: BP 106/67; PULSE 89; TEMP 36.8; O2SAT 96
[2017-07-29] MEDS ORDERED: DXY100 PO (08:27)
[2017-07-29] MEDS ORDERED: CPR500 PO (08:27)
[2017-07-29] MEDS: MELOXICAM 7.5 MG TAB PO SCH (08:29)
[2017-07-29] MEDS: OXYCODONE HCL IR 5 MG TAB (IMMEDIATE RELEASE) PO PRN (08:29)
[2017-07-29] MEDS: ENOXAPARIN 40 MG/0.4 ML SYR SQ SCH (08:30)
[2017-07-29] MEDS: GABAPENTIN 800 MG TAB PO SCH (08:30)
[2017-07-29] MEDS: PANTOprazole SOD 40 MG TAB PO SCH (08:31)
[2017-07-29] MEDS: DOXYCYCLINE HYCLATE 100 MG CAP PO SCH (08:31)
[2017-07-29] MEDS: CIPROFLOXACIN 500 MG TAB PO SCH (08:32)
--- NOTE | 2017-07-29 08:32 | Discharge Instructions ---
Discharge Instructions Date of Service Jul 29, 2017. Admission Reason for Admission: Sepsis Discharge Discharge Diagnosis / Problem: Sepsis 2/2 RUE abscess-resolved. Discharge Goals Goal(s): Therapeutic intervention, Prevent Disease Progression Activity Recommendations Activity Limitations: per Instructions/Follow-up section . Instructions / Follow-Up Instructions / Follow-Up Please take all medications as prescribed. Please finish complete course of antibiotics as given. It is recommended that you follow-up with your primary care provider within one week of discharge to ensure you are doing well. Please follow all Orthopedic instructions and follow-up plans as given by them. ACTIVITY RESTRICTIONS: Avoid lifting anything heavier than a medium water glass until your first post operative visit. It was a pleasure taking care of you! Call if you have any questions or problems. You can reach a [facility] hospitalist on duty at [facility] 24 hours a day by calling [phone]. Take care of yourself. Yas Dyer, [facility] Hospitalist Current Hospital Diet Patient's current hospital diet: Regular Diet Discharge Diet Recommended Diet: Regular Diet Procedures Procedures Performed: 1. Right Incision and drainage of antecubital fossa, 2. Debridement of fascia right elbow, 3. Excision of phlegmon right elbow Pending Studies Studies pending at discharge: no Medical Emergencies . Who to Call and When: Medical Emergencies: If at any time you feel your situation is an emergency, please call 911 immediately. . Non-Emergent Contact Non-Emergency issues call your: Primary Care Provider . . "Provider Documentation" section prepared by Yas Dyer. . Taker Off Braker Machine Recommendations Taker Off Braker Machine Recommendations: ACTIVITY RECOMMENDATIONS: * Avoid lifting anything heavier than a medium water glass until your first post operative visit. SPECIAL CARE INSTRUCTIONS: * Your bandage should be left in place until you are seen back in the office. * Some drainage onto the dressing may occur. This is normal. * If the bandage feels excessively tight, you may loosen the elastic bandage. Then call the physician's office for further instructions. * If possible, keep your hand elevated above the level of your heart for the first 2 post operative days. You may use a sling if necessary. * You should move your fingers regularly (50-100 motions per hour) unless otherwise instructed. SPECIAL PRECAUTIONS: * If you notice increased drainage, fever over 101 degrees F. or severe, unremitting pain, call your physician/office at . * You may have been prescribed pain medication. If you experience nausea and/or skin rash, discontinue this medication and contact our office for an alternative medication. FOLLOW UP VISIT: If appointment is not already scheduled: Please call [facility] [place] to make a follow-up appointment for in [address] Hyman's clinic at . VTE Core Measure Inpt VTE Proph given/why not?: Treatment not indicated
--- NOTE | 2017-07-29 08:58 | Discharge Summary ---
Discharge Summary Date of Service Jul 29, 2017. Discharge Summary Admission Date: Jul 23, 2017 at 22:26 Discharge Date: Jul 29, 2017 Discharge Disposition: Home Principal Diagnosis: Sepsis 2/2 RUE abscess Superficial thrombophlebitis h/o mood disorder smoker h/o IVDU Procedures: RUE I&D in ER initially with packing RUE wound washout in OR Vaccinations: Tetanus declined Consultations: Wound care Ortho ID Pending Studies/Follow-Up: see instructions below. Medication Reconciliation New Medications: Ciprofloxacin (Ciprofloxacin HCl) 500 Mg Tab 500 MG PO BID for 19 Days, #38 TAB Doxycycline Hyclate (Doxycycline Hyclate) 100 Mg Cap 100 MG PO BID for 19 Days, #38 CAP Continued Medications: Albuterol Hfa (Ventolin Hfa) 200 Puffs/68769 Mcg Aers 2 PUFFS INH QID PRN for SOB/Wheezing Cyclobenzaprine HCl (Cyclobenzaprine HCl) 10 Mg Tab 10 MG PO BID PRN for Muscle Spasm Fluticasone Propionate (Flovent Hfa) 120 Puffs/74061 Mcg Aero 2 PUFFS INH BID PRN for Shortness of Breath Gabapentin (Gabapentin) 800 Mg Tab 800 MG PO TID Medroxyprogesterone Acetate (C (Medroxyprogesterone Aceta) 150 Mg/Ml Inj 150 MG IM Q3 MONTHS Pantoprazole (Pantoprazole Sodium) 40 Mg Tab 40 MG PO DAILY TAKE THIS MEDICATION ONCE DAILY 30 MINUTES BEFORE FIRST MEAL OF THE DAY Quetiapine Fumarate (Quetiapine Fumarate) 400 Mg Tab 400 MG PO HS Rivaroxaban (Xarelto) 10 Mg Tab 1 TAB PO DAILY for 30 Days, #30 TAB 1 Refill Rizatriptan Benzoate (Rizatriptan Benzoate) 10 Mg Tab 10 MG PO UD PRN for Headache TAKE ONE TABLET AT ONSET OF HEADACHE Ropinirole HCl (Ropinirole HCl) 1 Mg Tab 1 MG PO HS Discontinued Medications: Meloxicam (Meloxicam) 15 Mg Tab 15 MG PO DAILY Prednisone (Prednisone) 10 Mg Tab 10 MG PO UNKNOWN Admission Information HPI (per Admitting provider): HISTORY OF PRESENT ILLNESS: History obtained from patient and records. Medical history significant for migraine, asthma, ongoing tobacco abuse, history of narcotic addiction as per records, mood disorder, history of cephalic vein thrombosis. hx Hepatitis C antibody positivity, Recent ER visit last week for right arm swelling. Ultrasound showed a thrombosed right cephalic vein mid to distal upper arm. Patient given option between NSAID rx versus 6 week duration anticoagulation. Patient chose the latter. Had one dose of Xarelto at the ER. Progressive swelling noted over the next few days. 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 No chest pain, no shortness of breath, had some chills. Patient had nausea, emesis symptoms. No abdominal pain. At the Emergency Room, an ultrasound showed abscess on the right upper extremity. Abscess subsequently drained. Received vancomycin and Zosyn. Denies recent IVDU. Last time she used needles was about 3 weeks ago. Physical Exam (per Admitting): PHYSICAL EXAMINATION: VITAL SIGNS: Blood pressure was noted to be 120/85, pulse rate 130, later 101, RR 16, temperature 36.7, sats 98 on room air. GENERAL: Noted to be obese, comfortable, looks older for stated age. No respiratory distress. SKIN: Normal color. Warm. Multiple tattoos. HEENT: [place] palpebral conjunctiva. No ptosis. Dry mucosa. NECK: Supple, nontender. CHEST: Clear to auscultation. No tenderness. HEART: Tachycardic. Palpable LE pulses ABDOMEN: Some distention, nontender. EXTREMITIES: Dressing on the right upper extremity. Some tenderness. NEUROLOGIC: Coherent. No gross focality. 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 Pt was seen in ER and received an IV in that spot approx 5 days prior to the development of erythema and soreness. She went to the ER a few days later when she was found with a superficial clot and placed on 6 weeks of Xarelto. She only took one dose prior to needing repeat ER visit with I&D and subsequent admission. She was placed on Vanc and later Zosyn to cover MRSA and Pseudomonas. ID was consulted and she was transitioned to PO antibiotics for 21 days. She continues to improve and deny fevers or chills. Orthopedics was consulted and recommended MRI, which then lead to a washout in the OR. She has done well post op and only required Tylenol for pain. Tolerating PO and afebrile. On day of discharge she was afebrile and hemodynamically stable. She was tolerating PO, mentating and ambulating at baseline. She was sent home in stable condition. Total time spent on discharge = 60 minutes This includes examination of the patient, discharge planning, medication reconciliation, and communication with other providers. Discharge Instructions [facility] [address] [place] [address] Discharge Medical Patient Name: Gala Calvillo Unit Number: [id number] Date of : 1990 Patient Status: Admitted Inpatient Attending Doctor: Yas Dyer DO DI: Medical v4 Discharge Instructions Date of Service Jul 29, 2017. Admission Reason for Admission: Sepsis Discharge Discharge Diagnosis / Problem: Sepsis 2/2 RUE abscess-resolved. Discharge Goals Goal(s): Therapeutic intervention, Prevent Disease Progression Activity Recommendations Activity Limitations: per Instructions/Follow-up section . Instructions / Follow-Up Instructions / Follow-Up Please take all medications as prescribed. Please finish complete course of antibiotics as given. It is recommended that you follow-up with your primary care provider within one week of discharge to ensure you are doing well. Please follow all Orthopedic instructions and follow-up plans as given by them. ACTIVITY RESTRICTIONS: Avoid lifting anything heavier than a medium water glass until your first post operative visit. It was a pleasure taking care of you! Call if you have any questions or problems. You can reach a [facility] hospitalist on duty at [facility] 24 hours a day by calling [phone]. Take care of yourself. Yas Dyer DO [facility] Hospitalist Current Hospital Diet Patient's current hospital diet: Regular Diet Discharge Diet Recommended Diet: Regular Diet Procedures Procedures Performed: 1. Right Incision and drainage of antecubital fossa, 2. Debridement of fascia right elbow, 3. Excision of phlegmon right elbow Pending Studies Studies pending at discharge: no Medical Emergencies . Who to Call and When: Medical Emergencies: If at any time you feel your situation is an emergency, please call 911 immediately. . Non-Emergent Contact Non-Emergency issues call your: Primary Care Provider . . "Provider Documentation" section prepared by Yas Dyer. . Audit Specialist Recommendations Audit Specialist Recommendations: ACTIVITY RECOMMENDATIONS: * Avoid lifting anything heavier than a medium water glass until your first post operative visit. SPECIAL CARE INSTRUCTIONS: * Your bandage should be left in place until you are seen back in the office. * Some drainage onto the dressing may occur. This is normal. * If the bandage feels excessively tight, you may loosen the elastic bandage. Then call the physician's office for further instructions. * If possible, keep your hand elevated above the level of your heart for the first 2 post operative days. You may use a sling if necessary. * You should move your fingers regularly (50-100 motions per hour) unless otherwise instructed. SPECIAL PRECAUTIONS: * If you notice increased drainage, fever over 101 degrees F. or severe, unremitting pain, call your physician/office at . * You may have been prescribed pain medication. If you experience nausea and/or skin rash, discontinue this medication and contact our office for an alternative medication. FOLLOW UP VISIT: If appointment is not already scheduled: Please call [facility] to make a follow-up appointment for in [address] Hyman's clinic at . VTE Core Measure Inpt VTE Proph given/why not?: Treatment not indicated Additional Copies To Akhil Oneil M.D.
--- NOTE | 2017-07-29 09:18 | Orthopedic Progress Note ---
Orthopedic Progress Note Date of Service Jul 29, 2017. Subjective Post OP Day: 2 Reports: feeling well, pain controlled w PO medications, Denies: complaints Objective N/V intact, capillary refill less than 2 sec., incision C/D/I, A&O x3 RUE NV intact. Full ROM of right wrist and elbow. No erythema of the surgical wound. Packing in place but all packing removed--~15 inches removed from site today. Date Time Temp Pulse Resp B/P (MAP) Pulse Ox O2 Delivery O2 Flow Rate FiO2 07/29/17 07:40 36.8 89 18 106/67 (80) 96 Room Air 07/29/17 00:24 36.8 107 17 107/73 (84) 100 Room Air 07/29/17 00:05 Room Air 07/28/17 20:05 Room Air 07/28/17 16:06 37.0 100 16 116/78 (91) 99 07/28/17 16:00 Room Air Assessment & Plan Assessment: POD #2 s/p 1. Irrigation and debridement, right elbow abscess antecubital fossa. 2. Debridement of fascia of the anterior elbow. 3. Excision phlegmon, right anterior elbow anterior antecubital fossa Plan: Continue PO Doxy and Cipro. Daily dressing changes with plan to remove the rest of the packing tomorrow. Patient is stable to be discharged today on PO antibiotics. Keep dressing in place until seen back this week at our office. Discharge Planning Discharge Planning: home
[2017-07-29 10:03] VITALS: BP 106/67; PULSE 89; TEMP 36.8; O2SAT 96
[2017-07-29] MEDS ORDERED: DOXY100T17 PO (14:06)
== END 2017-07-29 10:30 | disposition home or self-care (01) | DRG 854 ==
LOC: C.EDB 14:54 → C.MS4W 22:26 → ENRESERV 22:53
PROVIDERS: ADMIT Internal Medicine; ATTEND Hospitalist
PROC: 0J9F0ZZ Drainage of Left Upper Arm Subcutaneous Tissue and Fascia, Open Approach (ICD-10-PCS; 2017-07-23)
PROC: 0JBD0ZZ Excision of Right Upper Arm Subcutaneous Tissue and Fascia, Open Approach (ICD-10-PCS; principal; 2017-07-27 09:00)
DX: A41.9 Sepsis, unspecified organism (principal); L03.115 Cellulitis of right lower limb; I82.611 Acute embolism and thrombosis of superficial veins of right upper extremity; F39 Unspecified mood [affective] disorder; M72.8 Other fibroblastic disorders; F11.24 Opioid dependence with opioid-induced mood disorder; G43.909 Migraine, unspecified, not intractable, without status migrainosus; F17.200 Nicotine dependence, unspecified, uncomplicated; Z88.1 Allergy status to other antibiotic agents; Z88.2 Allergy status to sulfonamides; Z88.8 Allergy status to other drugs, medicaments and biological substances; J45.909 Unspecified asthma, uncomplicated; Z80.3 Family history of malignant neoplasm of breast; Z80.41 Family history of malignant neoplasm of ovary; E87.6 Hypokalemia; B95.62 Methicillin resistant Staphylococcus aureus infection as the cause of diseases classified elsewhere; E86.0 Dehydration; K02.9 Dental caries, unspecified; Z86.19 Personal history of other infectious and parasitic diseases

== ENCOUNTER 2017-09-30 21:27 | Emergency (ER) | payer OTHER ==
[~2017-09-30] VITALS: Ht 157.5 cm; Wt 88.1 kg
[~2017-09-30 21:27] MED LIST changes: +CPR500 PO; +DOXY100T17 PO; +FLX10 PO; +MEDR150I19 IM; +PANT40TA2 PO; +QUET1TAB20 PO; +RIZA1TAB11 PO; +ROPI1TAB29 PO
[2017-09-30 21:36] VITALS: BP 107/70; PULSE 85; TEMP 36.9; O2SAT 99; Ht 157.5 cm; Wt 88.1 kg
--- NOTE | 2017-09-30 22:12 | DIAGNOSTIC IMAGING REPORT ---
RIGHT KNEE 3 VIEWS CLINICAL HISTORY: Right knee pain. FINDINGS: AP, crosstable lateral, and sunrise views of the right knee are correlated with radiographs of the right tibia and fibula dated 12/20/2011. The skeletal structures are well mineralized. No fracture is seen. The joint spaces are well-maintained. No joint effusion is identified. The overlying soft tissues are within normal limits. IMPRESSION: Unremarkable radiographic assessment of the right knee. Electronically signed by: Mohsen Light M.D. 09/30/2017 10:11 PM Dictated Date/Time: 09/30/2017 10:09 PM
[2017-09-30] MEDS ORDERED: MELO-83 PO (22:31)
[2017-09-30] MEDS ORDERED: RQP/2 PO (22:31)
[2017-09-30] MEDS ORDERED: XRL20 PO (22:31)
[2017-09-30] MEDS ORDERED: IBUP-1428 PO (22:33)
[2017-09-30] MEDS ORDERED: NRN800 PO (22:52)
--- NOTE | 2017-09-30 23:05 | EMERGENCY ROOM VISIT NOTE ---
History First contact with patient: 21:47 Chief Complaint: KNEEPAIN Stated Complaint: R KNEE PAIN History of Present Illness The patient is a 27 year old female who presents to the Emergency Room with complaints of right knee pain that is worsened with any type of movement. The patient reports that she has some mild discomfort last evening. The pain woke her up overnight. She reports difficulty weightbearing at this point. She denies any prior history of right knee surgery or chronic problems. She denies any pain extending into the back, buttock, hip or ankle. She denies paresthesias or numbness the right lower extremity. She has not noticed any swelling or redness of the knee. She rates her discomfort a 9 out of 10. Review of Systems 10 system review was performed and was negative except for pertinent positives and negatives as indicated in history of present illness Past Medical/Surgical History Medical Problems: (1) Migraine (2) Sepsis (3) Tonsillectomy (4) Vaginal delivery Family History Cancer Diabetes mellitus Hypertension Social History Smoking Status: Current Every Day Smoker Alcohol Use: none Drug Use: other Marital Status: single, in relationship Housing Status: lives with family Occupation Status: employed Current/Historical Medications Scheduled Gabapentin (Gabapentin), 800 MG PO TID Ibuprofen (Motrin), 800 MG PO PRN UD Medroxyprogesterone Acetate (C (Medroxyprogesterone Aceta), 150 MG IM Q3 MONTHS Meloxicam (Meloxicam), 15 MG PO DAILY Pantoprazole (Pantoprazole Sodium), 40 MG PO DAILY Quetiapine Fumarate (Quetiapine Fumarate), 400 MG PO HS Rivaroxaban (Xarelto), 20 MG PO DAILY Ropinirole Hydrochloride (Requip), 2 MG PO DAILY Scheduled PRN Albuterol Hfa (Ventolin Hfa), 2 PUFFS INH QID PRN for SOB/Wheezing Cyclobenzaprine HCl (Cyclobenzaprine HCl), 10 MG PO BID PRN for Muscle Spasm Fluticasone Propionate (Flovent Hfa), 2 PUFFS INH BID PRN for Shortness of Breath Rizatriptan Benzoate (Rizatriptan Benzoate), 10 MG PO UD PRN for Headache Physical Exam Vital Signs Date Time Temp Pulse Resp B/P (MAP) Pulse Ox O2 Delivery O2 Flow Rate FiO2 09/30/17 21:36 36.9 85 20 107/70 99 Room Air Physical Exam CONSTITUTIONAL: Healthy and well nourished. Alert and oriented X 3 with positive affect. Patient does not appear in any acute distress. HEENT: Normocephalic, atraumatic. Pupils equal, round and reactive. NECK: Full active range of motion without discomfort. MUSCULOSKELETAL: Examination of the right knee does not show any overriding erythema, soft tissue edema, abrasions or ecchymosis. There is no increased warmth to palpation. Flexion and extension worsens the patient's discomfort. Collateral ligaments are intact. No obvious ACL/PCL ligamentous laxity. No popliteal masses. No focal tenderness over the gastrocnemius, hamstrings or patellar region. Pedal pulses are intact. INTEGUMENTARY: No rash or other significant dermatologic conditions noted. NEUROLOGIC: No focal neurologic deficits noted. Right lower extremity is sensory intact. Medical Decision & Procedures ER Provider Diagnostic Interpretation: My interpretation of right knee x-rays does not show any obvious joint effusion fractures, dislocation or other concerning bony lesions. Radiologist report is as follows: RIGHT KNEE 3 VIEWS CLINICAL HISTORY: Right knee pain. FINDINGS: AP, crosstable lateral, and sunrise views of the right knee are correlated with radiographs of the right tibia and fibula dated 12/20/2011. The skeletal structures are well mineralized. No fracture is seen. The joint spaces are well-maintained. No joint effusion is identified. The overlying soft tissues are within normal limits. IMPRESSION: Unremarkable radiographic assessment of the right knee. ED Course Patient history and physical exam were performed. Nurse's notes were reviewed. Vital signs were reviewed and were normal. X-rays of the right knee were normal. The patient reports that she has a knee brace that is not helping with her pain. The patient was dispensed a knee immobilizer for more limitation of motion. She was encouraged to intermittently apply ice and elevate the knee for swelling. Ibuprofen and Tylenol as needed for additional pain relief. She was encouraged to follow-up with her PCP if symptoms are not improving within the next several days. The patient voiced understanding of all discharge instructions, was happy with plan of care, and rated her discomfort a 7 out of 10 at the conclusion of my exam. Medical Decision The patient has reproducible pain with range of motion of the knee, therefore I suspect intra-articular etiology. She does not have a joint effusion. There is no increased warmth or overriding erythema to suggest septic joint. I do not suspect DVT. Medication Reconcilliation Current Medication List: was personally reviewed by me Blood Pressure Screening Patient's blood pressure: Normal blood pressure Impression Primary Impression: Acute pain of right knee Departure Information Referrals Akhil Oneil M.D. (PCP) Patient Instructions My [facility]
== END 2017-09-30 23:03 | disposition home or self-care (01) ==
LOC: C.EDB 21:28 → C.EDD 23:03
DX: M25.561 Pain in right knee (principal); F17.210 Nicotine dependence, cigarettes, uncomplicated; Z79.899 Other long term (current) drug therapy